=== PATIENT | female | born 1955 | race Caucasian/White ===

== ENCOUNTER → 2017-11-15 07:44 | Outpatient (CLI) | payer OTHER, SELFPAY ==
[2017-11-15 09:08] LABS: AST(SGOT) 20 U/L (15-37); Alanine Aminotransfer ALT/SGPT 21 U/L (13-56); Albumin, Serum 3.9 g/dL (3.2-5.0); Alkaline Phosphatase 112 U/L (45-117); Cholesterol 177 mg/dL (200); Globulin 3.3 g/dL (2.2-4.2); High Density Lipoprotein 54 mg/dL; Protein, Total 7.2 g/dL (6.4-8.2); Triglycerides 94 mg/dL; Very Low Density Lipoprotein 19 mg/dL (5-40)
== END ==
PROVIDERS: Family Provider Family Medicine; PCP Family Medicine; Visit Provider Internal Medicine Cardiovascular Disease
DX: E78.5 Hyperlipidemia, unspecified (principal); Z79.899 Other long term (current) drug therapy
CPT/HCPCS: 36415; 80061; 80076

== ENCOUNTER → 2018-05-18 10:44 | Outpatient (CLI) | payer OTHER, SELFPAY ==
[2018-05-18 12:15] LABS: AST(SGOT) 24 U/L (15-37); Alanine Aminotransfer ALT/SGPT 22 U/L (13-56); Albumin, Serum 3.7 g/dL (3.2-5.0); Alkaline Phosphatase 105 U/L (45-117); Cholesterol 189 mg/dL (200); Globulin 3.5 g/dL (2.2-4.2); High Density Lipoprotein 44 mg/dL; Protein, Total 7.2 g/dL (6.4-8.2); Triglycerides 153 mg/dL; Very Low Density Lipoprotein 31 mg/dL (5-40)
== END ==
PROVIDERS: Family Provider Family Medicine; PCP Family Medicine; Visit Provider Internal Medicine Cardiovascular Disease
DX: E78.5 Hyperlipidemia, unspecified (principal); Z79.899 Other long term (current) drug therapy
CPT/HCPCS: 36415; 80061; 80076

== ENCOUNTER → 2018-05-22 12:30 | Outpatient (CLI) | payer OTHER, SELFPAY ==
--- NOTE | 2018-05-22 12:32 | STE_ITS ---
Reason For Study: CHEST PAIN Stress Results Protocol: Cuco Protocol Maximum Predicted HR: 157 bpm Target HR: 133 bpm% Max imum Predicted HR: 103 % DurationHeart Rate Stage (mm:ss) (bpm) BPCom ment BASELINE 67 128/82 STAGE 1 3:00 11 8 172/90 STAGE 2 3:00 14 2 188/88CHEST HEAVINESS, INCREASED SOB STAGE 3 3:00 16 2 202/96SOB RECOVERY 81 130/88 Stress Duration: 9:00 mm:ss Maximum Stress HR: 162 bpm Baseline Echocardiogram Findings Stress Echo Wall motion Data Resting WMIntermediate WMStress WM Resting Wall Motion Wall Motion Stress No regional wall motion No regional wall motion abnormalities noted. abnormalities noted. Ejection Fraction 55 %. Ejection Fraction 65 %. Interpretation Summary Exercise stress echocardiogram. Stress protocol: Resting EKG demonstrates normal sinus rhythm with a rate of 66 bpm occasional premature ventricular complexes noted resting blood pressures 128/82 mmHg. The patient exercised according to the regular Cuco protocol for a total duration of 9 minutes. Patient completed stage III of the Cuco protocol. The maximum heart rate attained was 162 bpm which was 103% of maximum predicted heart rate and a maximum workload of 10.1 metabolic equivalents. The patient maintained sinus rhythm throughout the recording with occasional premature ventricular complexes and a short period of ventricular bigeminy which appeared to be mildly symptomatic. There were no ST or T-wave changes noted at rest or during peak exercise to suggest ischemia. Resting blood pressure was 128/82 with a peak blood pressure of 202/96 mmHg. Stress echocardiogram. The resting echocardiographic images demonstrated no wall motion abnormalities noted with an ejection fraction of 55%. At peak exercise the estimated ejection fraction was 65% with no wall motion abnormalities present. The test was terminated due to leg fatigue. No clinical angina was noted. Conclusion: Exercise stress echocardiogram with no evidence of ischemia at a high workload. Excellent functional capacity. Normal resting and stress echocardiographic images. Ordering Physician: Daniel Gill Referring Physician: Daniel Gill Performed By: Bridgett Streeter, RDCS, RVT
== END ==
PROVIDERS: Family Provider Family Medicine; PCP Family Medicine; Visit Provider Internal Medicine Cardiovascular Disease
DX: R07.9 Chest pain, unspecified (principal)
CPT/HCPCS: 93017; 93350

== ENCOUNTER → 2018-06-15 10:25 | Outpatient (CLI) | payer OTHER, SELFPAY ==
--- NOTE | 2018-06-15 10:46 | VDLE_ITS ---
Reason For Study: RLE Pain RIGHT LEFT GSV is normal. CFV is compressible, spontaneous, phasic, CFV is compressible, spontaneous, phasic, competent, and demonstrates normal competent and demonstrates normal augmentation. augmentation. FV is compressible, spontaneous, phasic, competent and demonstrates normal augmentation. POP V is compressible, spontaneous, phasic, competent and demonstrates normal augmentation. T/P Trunk is compressible. PTV is compressible. RT PerV is compressible. Procedure Exam performed in department. A preliminary report was called and/or faxed to Dr. Guzman. Interpretation Summary Deep veins of the right lower extremity are patent and compressible segmentally. There is no evidence of right lower extremity deep vein thrombosis. Valvular competence appears intact within the proximal deep venous system on the right . The right greater saphenous vein appears patent and compressible segmentally. Ordering Physician: Joe Guzman Referring Physician: Joe Guzman Performed By: Martina Sutton RVT and Student
== END ==
PROVIDERS: Family Provider Family Medicine; PCP Family Medicine; Referring Provider Family Medicine; Visit Provider Family Medicine
DX: M79.661 Pain in right lower leg (principal)
CPT/HCPCS: 93971

== ENCOUNTER 2018-06-27 08:55 | Outpatient (RCR) | payer OTHER, SELFPAY ==
--- NOTE | 2018-06-27 09:50 | HP.PTEVAL_ITS ---
Patient's Visit Information ZAIN LOVE is a 63 year old F referred to Physical Therapy by Joe Guzman with a diagnosis of Right Medial Calf Strain. Date of Evaluation: 06/27/18 Physical Therapist: Stacie Gu - Visit Plan Frequency: 3x /Week Duration: 2 Weeks Plan: Focus on stretching and US as modality with manual - Subjective Subjective: Right calf strain- was doing fall cleaning and then had pain- tho ught at first it was a blood clot- 2 weeks ago-had an ultrasound which was negative. Last week it started to push out- sent her to therapy to have it evaluation. Its getting better- she was on crutches but is now off of them. Describes pain as uncomfortable not painful 2/10 at the worst and just irritating. Pain is located along medial calf- and when she is on her leg to long it goes down the back. Can be pain free. Eases: ice and Ibuprofen. No N/T in the LE. Sleep: not disturbed at this point. When sitting for to long the leg kind of gates in the calf. 20 years ago had blood clots in the same area- thats why she was checked. Work: does not work outside of her home. Does not exercise outside of her housework. no x-rays or MRI- PMHx: HTN, cholesterol, Blood clots 20 years ago Meds: corig, lysinopril, certoline, prevastatin - Objective Posture: good throughout treatment session. Gait: angaltic- decrased stance on the right LE- poor heel strike and toe off due to decreased ROM and pain. SLS: unable without pain and when attempts her knee is bent to relieve pain. HR/TR: unable without pain and UE A. ROM: DF: neutral, PF: 60 degrees, Inv: 30 degrees Ever: 20 degrees- pain with Eversion and DF- Knee: 5-130 (normal secondary to partial knee replacement). Strength: hip: 4-/5 throughout, Knee: 5/5 Ankle: 4- /5 throughout available range. Flexibility: Gastroc: severe, Soleus: severe - Goals Goal 1:: Patient will be I with HEP and progression Goal Time Frame: 4-6 Weeks Goal 2:: Patient will ambulate >300 feet with a noramlized gait pattern Goal Time Frame: 4-6 Weeks Goal 3:: Patient will HR/TR with 0/10 pain Goal Time Frame: 4-6 Weeks Goal 4:: Patient will report 0/10 pain for 1 week Goal Time Frame: 4-6 Weeks - Rehabilitation Potential Physical Therapy Diagnosis: Patient presents with hypomobility she has decreased ROM, strength, flexibility and muscular endurance leading to abnormal gait pattern and increased pain with ADL's. Rehabilitation Potential: Fair - Anticipated Interventions Therapeutic Exercise to Include: Strength training, Endurance training, Balance training, Body mechanics, Postural training, Flexibilty training, Gait and locomotor training, Passive ROM, Active ROM For the Purpose of:: To improve muscle performance and motor function TENS: Yes Cryotherapy (ice pack, ice massage): Yes Thermo therapy (hot pack): Yes Ultrasound (thermal/non thermal): Yes Thank you for the opportunity to evaluate your patient. For Medicare and Medicare HMO plans, please review the plan of care and approve it. It will need to be FAXED BACK to us at [phone] for Medicare purposes. Please let me know if there are questions or concerns regarding this plan of care. Physician Signature: Date:
--- NOTE | 2018-08-14 15:29 | HP.PT.NRP ---
HP - Discharge Summary (1) - Patient Information ZAIN LOVE was seen in my office for initial evaluation on 06/27/18. The following Plan of Care was established for this patient: Initial Frequency: 3x /Week Initial Duration: 2 Weeks - Anticipated Interventions Therapeutic Exercise to Include: Strength training, Endurance training, Balance training, Body mechanics, Postural training, Flexibilty training, Gait and locomotor training, Passive ROM, Active ROM For the Purpose of:: To improve muscle performance and motor function TENS: Yes Cryotherapy (ice pack, ice massage): Yes Thermo therapy (hot pack): Yes Ultrasound (thermal/non thermal): Yes This patient was last seen in our office . Pertinent comments regarding their Physical therapy will appear below: Discharge At this point I will be discontinuing this patient from physical therapy. I would be happy to see this patient again in the future if found appropriate by the physician. Thank you! Stacie Gu
== END 2018-06-27 19:00 | disposition home or self-care (01) ==
LOC: PT 08:55
PROVIDERS: Family Provider Family Medicine; PCP Family Medicine; Visit Provider Family Medicine
DX: S86.111D Strain of other muscle(s) and tendon(s) of posterior muscle group at lower leg level, right leg, subsequent encounter (principal)
CPT/HCPCS: 97035; 97161

== ENCOUNTER → 2018-08-10 15:26 | Outpatient (CLI) | payer OTHER, SELFPAY ==
--- NOTE | 2018-08-10 15:29 | RAD_ITS ---
STUDY: X-RAY - LUMBAR SPINE REASON FOR EXAM: Female, 63 years old. Lumbago TECHNIQUE: 5 view(s) of the lumbar spine were obtained. COMPARISON: None FINDINGS: Normal lumbar lordosis. There is no substantial scoliosis. There is a normal alignment of the vertebrae. There is diffuse demineralization with multi-level endplate spondylosis. Normal disc space heights. There is facet sclerosis of the lower lumbar spine There is no demonstrated fracture. The soft tissue structures are unremarkable. RAD/L/S Spine Min 4 Views IMPRESSION: Degenerative changes of the spine, as detailed above. Electronically Signed: Abraham Leary MD at 15:39 EST , Service support ,
--- NOTE | 2018-08-10 15:29 | RAD_ITS ---
STUDY: X-RAY - PELVIS AND LEFT HIP REASON FOR EXAM: Female, 63 years old. Left hip pain TECHNIQUE: 3 views of the pelvis and hip. COMPARISON: None. FINDINGS: There is a normal bowel gas pattern. There are multiple calcified phleboliths. There is diffuse demineralization of the osseous structures. Normal bilateral iliac wings, sacroiliac joints and visualized sacrum. Normal bilateral superior and inferior pubic rami. Normal pubic symphysis. Normal bilateral ischial tuberosities. Normal visualized femoral head. Normal acetabulum. Normal hip joint. There is no fracture. RAD/HIP, UNI W/ Pelvis 2-3 Views IMPRESSION: Demineralization. No fracture or erosion. Electronically Signed: Abraham Leary MD at 15:37 EST , Service support ,
== END ==
PROVIDERS: Family Provider Family Medicine; PCP Family Medicine; Referring Provider Family Medicine; Visit Provider Family Medicine
DX: M54.5 Low back pain (principal); M25.552 Pain in left hip
CPT/HCPCS: 72110; 73502

== ENCOUNTER → 2018-08-22 08:27 | Outpatient (CLI) | payer OTHER, SELFPAY ==
--- NOTE | 2018-08-22 08:38 | BD_ITS ---
STUDY: DUAL ENERGY X-RAY ABSORPTIOMETRY / DXA REASON FOR EXAM: Female, 63 years old. The patient is postmenopausal. Loss of height. TECHNIQUE: Bone Mineral Density (BMD) measurements of lumbar spine and bilateral hips were obtained. COMPARISON: Comparison is made with prior study dated October 14, 2009. FINDINGS: Lumbar Spine (L1-L4): g/cm2 (0.997) / T-score (-1.5) / Z-score (-0.1) Findings are suggestive of osteopenia with a moderate fracture risk. Left Femur Total: g/cm2 (0.724) / T-score (-2.3) / Z-score (-1.2) Left Femoral Neck: g/cm2 (0.740) / T-score (-2.1) / Z-score (-0.8) Right Femur Total: g/cm2 (0.715) / T-score (-2.3) / Z-score (-1.2) Right Femoral Neck: g/cm2 (0.767) / T-score (-1.9) / Z-score (-0.6) The T-Scores on the most recent prior examination were: Lumbar Spine (L1-L4): There has been worsening of bone density since the previous examination. Left Femur Total: which represents a worsening of 13%. Right Femur Total: which represents a worsening of 13.2%. BD/Dexa Bone Density Study IMPRESSION: The patient is considered osteopenic as outlined below according to World Ramsey Organization (WHO) criteria with a moderate fracture risk. There has been worsening of bone density since the previous examination. Reference Information: The T-score is the number of standard deviations above or below the standard which is normal for young adults at their peak bone mineral density. The World Health Organization (WHO) interprets the T-scores as follows: Above -1 Normal bone density Between -1 and -2.5 Osteopenia Equal to / or below -2.5 Osteoporosis As a practical clinical guideline, osteopenia may be graded as follows: Mild -1 through -1.5 Moderate -1.6 through -2.0 Severe -2.1 through -2.4 The Z-score is the number of standard deviations above or below age-matched controls. A Z-score of less than -1.5 would be considered abnormal. References: 1. NIH Osteoporosis and Related Bone Diseases http://www.osteo.org 2. International Society for Clinical Densitometry http://www.iscd.org 3. National Osteoporosis Foundation http://www.nof.org Electronically Signed: Augustin Murray MD at 13:24 EST Tel [phone], Service support ,
--- OUTSIDE RECORDS SUMMARY | 2018-11-23 13:20 | XMS RPT_ITS ---
:1955 Author Organization OHIP Support Name Relationship Address Phone ARIES ALFONSO Unavailable [address] + [place] [address] R Unavailable Unavailable Unavailable REVA EASON Unavailable [address] + [place] [address] ALFONSO CHRIS Unavailable [address] + [place] [address] R Unavailable Unavailable Unavailable REVA EASON Unavailable [address] + [place] [address] ALFONSO CHRIS Unavailable [address] + [place] [address] R Unavailable Unavailable Unavailable REVA EASON Unavailable [address] + [place] [address] ALFONSO CHRIS Unavailable [address] + [place] [address] R Unavailable Unavailable Unavailable REVA EASON Unavailable [phone] [place] [address] ALFONSO CHRIS Unavailable [address] + [place] [address] R Unavailable Unavailable Unavailable REVA EASON Unavailable [phone] [place] [address] ALFONSO CHRIS Unavailable [address] + [place] [address] R Unavailable Unavailable Unavailable REVA EASON Unavailable [phone] [place] [address] ALFONSO CHRIS Unavailable [address] + [place] [address] R Unavailable Unavailable Unavailable IVAN REVA Unavailable [address] + [place] [address] R Unavailable Unavailable Unavailable IVAN REVA Unavailable [phone] [place] [address] R Unavailable Unavailable Unavailable IVAN REVA Unavailable [address] + [place] [address] R Unavailable Unavailable Unavailable IVAN REVA Unavailable [phone] [place] [address] Care Team Providers Name Role Phone Joe Guzman Attending Unavailable Ranney, Christopher Primary Care Unavailable Jairo, Daniel Attending Unavailable Jairo, Daniel Referring Unavailable [facility], [facility] Unavailable Jairo, Daniel Attending Unavailable Ranney, Christopher Referring Unavailable Ran[facility], [facility] Unavailable Jairo, Daniel Attending Unavailable J[place], [place] Referring Unavailable Ranney, Christopher Primary Care Unavailable [place], [place] Attending Unavailable [place], [place] Referring Unavailable [facility], [facility] Unavailable Ranney, Christopher Attending Unavailable Ranney, Christopher Referring Unavailable [facility], [facility] Primary [facility] Unavailable Jairo, Daniel Attending Unavailable Jairo, [place] Referring Unavailable Ranney, Christopher Attending Unavailable Ran[facility], [facility] Primary Care Unavailable Ranney, Christopher Attending Unavailable Ranney, Christopher Referring Unavailable Ranney, [facility] Primary Care Unavailable Ranney, Christopher Attending Unavailable Ranney, Christopher Referring Unavailable Ran[facility], [facility] Primary [facility] Unavailable PROBLEMS PROBLEMS DATE TYPE CONDITION / CODE ATTENDING STATUS SOURCE 08/10/2018 Unknown M25.552 - Pain in Ranney, Active [place] left hip / [facility] M25.552(ICD-10) Hospital Repository 08/10/2018 Unknown M54.5 - Low back Ranney, Active [place] pain / [facility] Community M54.5(ICD-10) Hospital Repository 06/16/2018 Unknown R07.9 - Chest Jairo, Daniel Active [place] pain, unspecified Community / R07.9(ICD-10) Hospital Repository 05/16/2018 Unknown E78.5 - Jairo, Daniel Active [place] Hyperlipidemia, Community unspecified / Hospital E78.5(ICD-10) Repository 05/16/2018 Unknown I10 - Essential [place]airo, [place] Active [place] (primary) Community hypertension / Hospital I10(ICD-10) Repository 11/15/2017 Unknown 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 [place], [place] [address] Fax REHABILITATION SERVICES INITIAL EVALUATION MR#: [id number] Acct: [id number] Name: ZAIN EASON Rep #: [id number] : 1955 63 From: Lala El PT, Cert. MDT Referring Dr.: Joe Guzman MD Status: REG RCR Insurance: [facility] SELF PAY INSURANCE Patient's Visit Information ZAIN [...] BACK X-RAY AND BONE SCAN PENDING TUESDAY. [facility] EMR: FINDINGS: Normal lumbar lordosis. There [...] to be FAXED BACK to us at [phone] for Medicare purposes. For Medicare only, by signing this I certify the plan of care. Please let me know if there are questions or concerns regarding this plan of care. Physician Signature: Date: <Electronically signed by Lala El PT, Cert. MDT> 08/24/18 0914 CC: Joe Guzman MD CECILIA Signed DEXA BONE DENSITY Observed: 08/22/2018 Status: F Source: [place] STUDY 8:31 AM [facility] [place] Imaging Services [address] [place] [address] Dexa Bone Density Study MR#: [id number] Acct: [id number] Name: ZAIN EASON Rep #: [id number] : 1955 F 63 From: Augustin Murray MD PCP: Joe Guzman MD Status: REG CLI Study: Dexa Bone Density Study Date of Exam: 08/22/18 Exam# [id number] Ordering Dr: Reginald Guzman MD STUDY: DUAL [...] Augustin Murray MD at 13:24 EST Tel [phone], Service support , CC: Joe Guzman MD Emergency Response Officer: Signed HIP, UNI W/ PELVIS Observed: 08/10/2018 Status: F Source: [place] 2-3 VIEWS 3:30 PM [facility] REPOSITORY [facility] Imaging Services [address] [place] [address] HIP, UNI W/ Pelvis 2-3 Views MR#: [id number] Acct: [id number] Name: ZAIN EASON Rep #: [id number] : 1955 F 63 From: Abraham Leary MD PCP: Joe Guzman MD Status: REG CLI Study: HIP, UNI W/ Pelvis 2-3 Views Date of Exam: 08/10/18 Exam# [id number] Ordering Dr: Reginald Guzman MD STUDY: X-RAY [...] Service support , CC: Joe Guzman MD Emergency Response Officer: Signed L/S SPINE MIN 4 Observed: 08/10/2018 Status: F Source: [place] VIEWS 3:30 PM [facility] REPOSITORY [facility] Imaging Services [address] [place] [address] L/S Spine Min 4 Views MR#: [id number] Acct: [id number] Name: ZAIN EASON Rep #: [id number] : 1955 F 63 From: Abraham Leary MD PCP: Joe Guzman MD Status: REG CLI Study: L/S Spine Min 4 Views Date of Exam: 08/10/18 Exam# [id number] Ordering Dr: Reginald Guzman MD STUDY: X-RAY [...] Service support , CC: Joe Guzman MD Emergency Response Officer: Signed INITAL EVALUATION (1) Observed: 06/27/2018 Status: F Source: [facility] 9:50 AM [facility] [address] [place] [address]. [address] [place] [address] Fax REHABILITATION SERVICES INITIAL EVALUATION MR#: [id number] Acct: [id number] Name: ZAIN EASON Rep #: [id number] : 1955 63 From: Stacie Gu DPT Referring Dr.: Joe Guzman MD Status: REG RCR Insurance: [facility]F PAY INSURANCE Patient's Visit Information ZAIN [...] to be FAXED BACK to us at [phone] for Medicare purposes. Please let me know if there are questions or concerns regarding this plan of care. Physician Signature: Date: <Electronically signed by Stacie Gu DPT> 06/27/18 0950 CC: Joe Guzman MD ELR Signed For Medicare only, by signing this I certify the plan of care. Physicians Signature Date VENOUS DUPLEX LOWER Observed: 06/18/2018 Status: F Source: [place] EXTREMITY 9:32 AM [facility] [place] Cardiovascular Services [address] [place] [address] Venous Duplex US, Unilateral 06/15/18 1047 MR#: [id number] Acct: [id number] Name: ZAIN EASON Rep #: [id number] : 1955 63 From: Mervin Wolf MD [...] Dictated: 06/15/18 1047 Date Transcribed: 06/18/18 0932 Emergency Response Officer: Signed STRESS TEST ECHO W/O Observed: 05/22/2018 Status: F Source: [place] CONTRAST [facility] Cardiovascular Services [address] [place] [address] Stress Test Echo w/o Contrast MR#: [id number] Acct: [id number] Name: ZAIN EASON Rep #: [id number] : 1955 63 From: Daniel Gill MD [...] Dictated: 05/22/18 1258 Date Transcribed: 05/22/18 1601 Emergency Response Officer: Signed LIVER PROFILE Collected: 05/18/2018 Status: F Source: [place] 10:51 AM [facility] [place] TYPE CODE TESTS RESULT [...] 0.10 Performed By: #### L500.3400, L500.4100 #### [facility] [address] [place], [address] LIPID PROFILE Collected: 05/18/2018 Status: F Source: [place] 10:51 AM [facility] [place] [facility] TYPE CODE TESTS RESULT [...] 31 Performed By: #### L500.3400, L500.4100 #### [facility] [address] [place], [address] CARDIOLOGY VISIT Observed: 05/16/2018 Status: F Source: [place] REPORT 9:51 AM [facility] [place] [address] [place] [address] OFFICE VISIT Date of Service: 05/16/18 MR#: [id number] Acct: [id number] Name: ZAIN EASON Rep #: [id number] : 1955 Provider: Daniel Gill MD Age/Sex: 63/F Location: [facility] Status: Signed HPI [facility] Chief Complaint: Follow-up visit. 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 [Ecotrin] 81 mg PO MOWEFR 08/23/13 [History Confirmed 05/16/18] Calcium Carbonate/Vitamin D3 [Calcium 600-Vit D3 400 Tablet] 1 ea PO DAILY 08/23/13 [History Confirmed 05/16/18] [place]-3 Fatty Acids/Fish Oil [Fish Oil Softgel] 1 [...] arise Plan Detail Follow Up 1 Year (rhit) Coding Level of Care Code Off vis,est,level [...] 11/15/2017 Status: F Source: [place] 7:46 AM [facility] Order Comment: Order Date: 05/20/17 Order Info: 0788-1 - *Hepatic Function Panel Order Info: [id number] - *Lipid Profile CC PCP Comments: 12 [...] BILI 0.10 Performed By: #### L500.3400 #### [facility] [address] [place], [place], [id number] LIPID PROFILE Collected: 11/15/2017 Status: F Source: [place] 7:46 AM [facility] Order Comment: Order Date: 05/20/17 Order Info: 0788-1 - *Hepatic Function Panel Order Info: [id number] - *Lipid Profile CC PCP Comments: 12 [...] VLDL 19 Performed By: #### L500.4100 #### [facility] [address] [place], [place] [address], [address] ALLERGIES ALLERGIES DATE TYPE / NAME / CODE REACTION SEVERITY SOURCE CODE 05/16/2018 Drug metoclopramide Other Unknown [place] Allergy/41 HCl/[id number](RXNOR [facility] [id number] Repository ENCOUNTERS ENCOUNTERS ADMIT/DISCHARGE ACCOUNT ADMITTING ENCOUNTER LOCATION SOURCE NUMBER CLASS 09/04/2018 [id number] Ambulatory [address] ing:PT Repository 08/22/2018 [id number] Ambulatory [facility] 2 [facility] ing:OPBD Repository 08/10/2018 [id number] Ambulatory [place] 4 [facility] ing:MTRAD Repository 06/27/2018/ [id number] Ambulatory [place] ing:PT Repository 06/15/2018 [id number] Ambulatory [facility] 8 [facility] ing:CVS Repository 05/22/2018 [id number] Ambulatory [address] ing:CVS Repository 05/22/2018 [id number] Ambulatory BMSBuilding:W [place] 7 [facility] Repository 05/18/2018 [id number] Ambulatory [place] 5 [facility] ing:LAB Repository 05/16/2018/ [id number] Ambulatory BMSBuilding:B [place] 8 9 [facility] Repository 11/15/2017 [id number] Ambulatory [place] 9 [facility] ing:LAB Repository PAYERS PAYERS ENCOUNTER GUARANTOR PAYER SUBSCRIBER SOURCE 09/04/2018 DANY Velarde Primary ZAIN COTTONENT1623 Insurance:MEDICAL VINCENTDOB: [facility] [place] Number[place] Repository [id number]: 330 [id number] [phone] (HP) Date:5921-50-20IS [address] [place] [address]ZL: 09/04/2018 Secondary NOT GIVENUNK [place] Insurance:SELF PAY [facility] Number: Effective Repository Date:2018-08-14 08/22/2018 DNAY D Primary ZAIN COTTONENT1623 Insurance:MEDICAL VINCENTDOB: [facility] [place]43[place] Number: Repository [id number]: 330 [id number] [phone] (HP) Date:7822-53-29YV [address] [address]UW: 08/22/2018 Secondary NOT GIVENUNK [place] Insurance:SELF PAY [facility] Number: Effective Repository Date:2018-08-14 08/10/2018 DANY Velarde Primary ZAIN [place] [id number] Insurance:MEDICAL VINCENTDOB: [facility] 0577[place] Number: Repository [address]Ipk: 330 [id number] [phone] (HP) Date:5969-77-56QS [address] [address]RK: 08/10/2018 Secondary NOT GIVENUNK [place] Insurance:SELF PAY [facility] Number: Effective Repository Date:2018-08-10 06/27/2018 DANY COTTONENT1623 Insurance:MEDICAL VINCENTDOB: [facility] 5154[place] Number: Repository [address]Aon: 330 [id number] [phone] (HP) Date:6838-44-51SC [address] [address]TD: 06/27/2018 Secondary NOT GIVENUNK [place] Insurance:SELF PAY [facility] Number: Effective Repository Date:2018-06-26 06/15/2018 DANY COTTONENT1623 Insurance:MEDICAL VINCENTDOB: [facility] [id number] Number: Repository [address]Tnw: 330 [id number] [phone] (HP) Date:5873-79-22ML [address] [address]CJ: 06/15/2018 Secondary NOT GIVENUNK [place] Insurance:SELF PAY [facility] Number: Effective Repository Date:2018-06-15 05/22/2018 DANY COTTONENT1623 Insurance:MEDICAL VINCENTDOB: [facility] 4737-80-[place] Number: Repository [id number]: 330 [id number] [phone] (HP) Date:0885-56-83SH [address] [address]UC: 05/22/2018 Secondary NOT GIVENUNK [place] Insurance:SELF PAY [facility] Number: Effective Repository Date:2018-05-16 05/22/2018 DANY COTTONENT1623 Insurance:MEDICAL VINCENTDOB: [address]08-16[place] Number: Repository [address]Elu: 330 [id number] [phone] (HP) Date:1160-86-44XH [address] [place] [address]TC: 05/22/2018 Secondary NOT GIVENUNK [place] Insurance:SELF PAY [facility] Number: Effective Repository Date:2018-05-22 05/18/2018 Dany Eason1623 Insurance:MEDICAL VINCENTDOB: [facility] 3533[place]-88[place] Number: Repository [id number]: 330 [id number] [phone] (HP) Date:6144-65-34HG [address] [address]MS: 05/18/2018 Secondary NOT GIVENUNK [place] Insurance:SELF PAY [facility] Number: Effective Repository Date:2018-05-18 05/16/2018 Dany Cottonent1623 Insurance:MEDICAL VINCENTDOB: [facility] [id number] Number: Repository [id number]: 330 [id number] [phone] (HP) Date:4438-87-83TB [address] [address]RZ: 05/16/2018 Secondary NOT GIVENUNK [place] Insurance:SELF PAY [facility] Number: Effective Repository Date:2018-05-16 11/15/2017 Dany Cottonent1623 Insurance:MEDICAL VINCENTDOB: [facility] 2816[place]13-[place] Number: Repository [id number]: 330 [id number] [phone] (HP) Date:0722-76-25AO [address] [address]BT: 11/15/2017 Secondary NOT GIVENUNK [place] Insurance:SELF PAY [facility] Number: Effective Repository Date:2017-11-15
== END ==
PROVIDERS: Family Provider Family Medicine; PCP Family Medicine; Visit Provider Family Medicine
DX: M51.36 Other intervertebral disc degeneration, lumbar region (principal)
CPT/HCPCS: 77080

== ENCOUNTER 2018-09-04 15:00 | Outpatient (RCR) | payer OTHER, SELFPAY ==
--- NOTE | 2018-08-17 13:19 | HP.PTEVAL ---
Patient's Visit Information ZAIN LOVE is a 63 year old F referred to Physical Therapy by Reginald Guzman MD with a diagnosis of DDD LUMBAR. Date of Evaluation: 08/17/18 Physical Therapist: Lala Gore Visit Plan Frequency: 2-3x /Week Duration: 4-6 Weeks Plan: POSTURE CORRECTION/STRENGTHENING, INSTRUCTION IN APPROPRIATE BODY MECHANICS AND ACTIVITY MODIFICATIONS. DLS STARTING WITH A NEUTRAL SPINE PROGRESSING ROM TOLERATED. ELSA LE ROM, STRETCHING AND STRENGTHENING. HEP INSTRUCTION. 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 Disability: NO. Present symptoms: ELSA LOW BACK PAIN AND LEFT GROIN PAIN. RIGHT THORACIC PAIN. TINGLING 4TH TOE FOR A FEW MONTHS NOW. ALSO PAIN, NUMBNESS AND TINGLING DOWN THE BACK OF BOTH LEGS TO HER FEET. Present since: COUPLE OF YEARS AGO AT LEAST BUT LEFT GROIN PAIN STARTED WITHIN THE LAST MONTH. Pain Scale: BACK - WORST 4/10, LEAST 0/10, LEGS - WORST 7/10, LEAST 0/10, LEFT GROIN PAIN - WORST 8/10, LEAST 0/10. Currently: 0/10 SITTING IN CLINIC AND WALKING IN TODAY. Commenced as a result of: NO APPARENT REASON. Symptoms at onset: LOW BACK. Worse: CLEANING, LEANING FORWARD TO DUST, VACUUMING, GETTING OUT OF A CHAIR THE LEFT GROIN REALLY HURTS AND SITTING DOWN IRRITATES IT TOO. SITTING IN CERTAIN CHAIRS. GETTING OUT OF BED. Better: SITTING IN STRAIGHT CHAIRS, BASICALLY DOING NOTHING - BEING STILL IN SITTING OR LYING DOWN. ALEVE. Disturbed sleep: NO. Previous history/Previous treatment: PATIENT REPORTS A LONG HISTORY OF BACK AND SCIATICA TYPE SYMPTOMS IN BOTH LEGS BUT THE ONLY TREATMENT SHE HAS HAD WERE A FEW DO MANIPULATIONS. NO BACK SURGERY. NO BASILIO'S. NO PT AND NO CHIROPRACTOR. Coughing/sneezing/straining: POSITIVE. Gait: NORMAL BUT SOMETIMES WALKING INCREASES THE GROIN PAIN BUT SHE IS ABLE TO KEEP GOING. Difficulty initiating urinatin: NO. Accidents: NONE RECENT. Unexplained weight loss: NO. Imaging: RECENT LUMBAR X-RAYS - HIPS WERE FINE PER PATIENT REPORT. PATIENT REPORTS THE NURSE TOLD HER THEY SAW SOMETHING ON THE LOW BACK X-RAY AND BONE SCAN PENDING TUESDAY. [facility] EMR: FINDINGS: Normal lumbar lordosis. There is no substantial scoliosis. There is a normal alignment of the vertebrae. There is diffuse demineralization with multi-level endplate spondylosis. Normal disc space heights. There is facet sclerosis of the lower lumbar. spine There is no demonstrated fracture. The soft tissue structures are unremarkable. PMH: OSTEOPENIA. HTN. HIGH CHOLESTEROL. Recent major surgery: RIGHT PARTIAL KNEE REPLACEMENT 3 YEARS AGO. PLOF (Prior Level of Function): PRIOR TO ONSET OF THE LEFT GROIN PAIN ABOUT 3-4 WEEKS AGO PATIENT WAS ABLE TO GET UP AND DOWN FROM CHAIRS, IN/OUT OF BED, CLEAN, BEND AND LIFT WITHOUT PAIN. SHE ALSO REPORTS SHE WAS ABLE TO WALK UNLIMITED WITHOUT PAIN PRIOR TO THE LEFT GROIN PAIN. - Objective Sitting/Standing Posture: POOR. Lordosis: REDUCED. Lateral shift: NO. Relevant shift: N/A. Active Correction of posture: BETTER. PATIENT REPORTED IMMEDIATE DECREASE IN PAIN WITH USE OF LUMBAR SUPPORT IN CLINIC. Other Observations: INDEP GAIT INTO PT WITHOUT ANY AD'S OR GROSS DEVIATIONS NOTED. Motor deficit: ELSA LE'S 5/5 WITH MMT'IING EXCEPT RIGHT HIP 4/5 AND LEFT HIP 4-/5. LEFT HIP TESTING PROVOKES LEFT GROIN PAIN. ACTIVE LEFT HIP IR ESPECIALLY PROVOKES LEFT GROIN PAIN. Sensory deficit: NO. ROM deficit: RIGHT LE WNL AND PAINFREE WITH TESTING EXCEPT ERP WITH IR. LEFT HIP FLEX AND IR HAVE MINIMAL MVMT LOSS AND ERP WITH TESTING. Reflexes: 3/3 ELSA LE'S. Dural Signs: NEGATIVE RIGHT AND POSITIVE LEFT. Lumbar mvmt loss: flex - NIL. ext - MOD. R SG - MIN. L SG - MOD. PATIENT DENIES ANY SHOOTING PAINS OR REALLY ANY INCRASED PAIN WITH LUMBAR ROM TESTING ALL PLANES HOWEVER STANDING STILL FOR JUST A FEW MINUTES INCREASES LEFT GROIN PAIN. Core strength: POOR. Palpation: PATIENT HAS TENDERNESS WITH PALPATION OF THE LEFT GROIN REGION, LEFT GRATER TROCH REGION AND [id number] REGIONS WITH PALPATION OF THE SACRUM PRODUCING LEFT GROIN PAIN. OTHER: POSITIVE LEFT GALLO TEST. NEGATIVE RIGHT. - Goals Goal 1:: DECREASE C/O BACK AND ELSA LE SX'S INCLUDING LEFT GROIN Goal Time Frame: 4-6 Weeks Goal 2:: IMPROVE LIFTING, WALKING, SITTING, STANDING AND HOMEMAKING FUNCTION Goal Time Frame: 4-6 Weeks Goal 3:: INSTRUCT IN PROPHYLAXIS Goal Time Frame: 4-6 Weeks - Rehabilitation Potential Rehabilitation Potential: Good - Anticipated Interventions Patient/Client Instruction: Educate patient on: Condition, Plan of Care, Risk Factors, Benefits of Fitness Program For the Purpose of:: To improve self management Therapeutic Exercise to Include: Strength training, Body mechanics, Postural training, Flexibilty training, Dynamic Lumbar Stabilization For the Purpose of:: To decrease pain, To increase ROM, To improve muscle performance and motor function, To increase tolerance to activity/condition/position, To improve ability of physical actions for home/community/work/leisure TENS: Yes IF ES: Yes Cryotherapy (ice pack, ice massage): Yes Thermo therapy (hot pack): Yes Ultrasound (thermal/non thermal): Yes For the Purpose of:: To decrease pain, To decrease swelling/inflammation, To increase ROM, To improve nutrient delivery to tissue Thank you for the opportunity to evaluate your patient. For Medicare and Medicare HMO plans, please review the plan of care and approve it. It will need to be FAXED BACK to us at [phone] for Medicare purposes. For Medicare only, by signing this I certify the plan of care. Please let me know if there are questions or concerns regarding this plan of care. Physician Signature: Date:
--- OUTSIDE RECORDS SUMMARY | 2018-10-03 06:06 | XMS RPT_ITS ---
:1955 Author Organization OHIP Support Name Relationship Address Phone ARIES ALFONSO Unavailable [address] + [place] [address] R Unavailable Unavailable Unavailable REVA EASON Unavailable [address] + [place] [address] ALFONSO CHRIS Unavailable [address] + [place] [address] R Unavailable Unavailable Unavailable REVA EASON Unavailable [address] + [place] [address] ALFONSO CHRIS Unavailable [address] + [place] [address] R Unavailable Unavailable Unavailable REVA EASON Unavailable [address] + [place] [address] ALFONSO CHRIS Unavailable [address] + [place] [address] R Unavailable Unavailable Unavailable REVA EASON Unavailable [phone] [place] [address] ALFONSO CHRIS Unavailable [address] + [place] [address] R Unavailable Unavailable Unavailable REVA EASON Unavailable [phone] [place] [address] ALFONSO CHRIS Unavailable [address] + [place] [address] R Unavailable Unavailable Unavailable REVA EASON Unavailable [phone] [place] [address] ALFONSO CHRIS Unavailable [address] + [place] [address] R Unavailable Unavailable Unavailable IVAN REVA Unavailable [address] + [place] [address] R Unavailable Unavailable Unavailable IVAN REVA Unavailable [phone] [place] [address] R Unavailable Unavailable Unavailable IVAN REVA Unavailable [address] + [place] [address] R Unavailable Unavailable Unavailable IVAN REVA Unavailable [phone] [place] [address] Care Team Providers Name Role Phone Joe Guzman Attending Unavailable Ranney, Christopher Primary Care Unavailable Jairo, Daniel Attending Unavailable Jairo, Daniel Referring [facility]available [facility], [facility] Unavailable Jairo, Daniel Attending Unavailable Ranney, Christopher Referring Unavailable [facility], [facility] Unavailable Jairo, Daniel Attending Unavailable Jairo, Como Referring Unavailable Ranney, Christopher Primary Care Unavailable Jairo, Como Attending Unavailable Jairo, [place] Referring Unavailable [facility], [facility] Unavailable Ranney, Christopher Attending Unavailable Ranney, Christopher Referring Unavailable [facility], [facility] Unavailable Jairo, Daniel Attending Unavailable Jairo, [place] Referring Unavailable Ranney, Christopher Attending Unavailable [facility], [facility] Unavailable Ranney, Christopher Attending Unavailable Ranney, Christopher Referring Unavailable Ranney, [facility] Primary [facility] Unavailable Ranney, Christopher Attending Unavailable Ranney, Christopher Referring Unavailable [facility], [facility] Unavailable PROBLEMS PROBLEMS DATE TYPE CONDITION / CODE ATTENDING STATUS SOURCE 08/10/2018 Unknown M25.552 - Pain in Ranney, Active [place] left hip / [facility] M25.552(ICD-10) Hospital Repository 08/10/2018 Unknown M54.5 - Low back Ranney, Active [place] [facility] / Christopher Community M54.5(ICD-10) Hospital Repository 06/16/2018 Unknown R07.9 - Chest Jairo, Daniel Active [place] [facility], unspecified Community / R07.9(ICD-10) Hospital Repository 05/16/2018 Unknown E78.5 - Jairo, Daniel Active [place] Hyperlipidemia, Community unspecified / Hospital E78.5(ICD-10) Repository 05/16/2018 Unknown I10 - Essential Jairo, [place] Active [place] (primary) Community hypertension / Hospital I10(ICD-10) Repository 11/15/2017 Unknown 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 [place], [place] [address] Fax REHABILITATION SERVICES INITIAL EVALUATION MR#: [id number] Acct: [id number] Name: ZAIN EASON Rep #: [id number] : 1955 63 From: Lala El PT, Cert. MDT Referring Dr.: Joe Guzman MD Status: REG RCR Insurance: [facility] [employer]URANCE Patient's Visit Information ZAIN EASON is a 63 year old F referred to Physical Therapy by Reginald Guzman MD with a diagnosis of DDD LUMBAR. Date of Evaluation: 08/17/18 Physical Therapist: Lala El - Visit Plan Frequency: 2-3x /Week Duration: 4-6 Weeks Plan: POSTURE CORRECTION/STRENGTHENING, INSTRUCTION IN APPROPRIATE BODY MECHANICS AND ACTIVITY MODIFICATIONS. DLS STARTING WITH A NEUTRAL SPINE PROGRESSING ROM TOLERATED. ELSA LE ROM, STRETCHING AND STRENGTHENING. HEP INSTRUCTION. 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 Disability: NO. Present symptoms: ELSA LOW BACK PAIN AND LEFT GROIN PAIN. RIGHT THORACIC PAIN. TINGLING 4TH TOE FOR A FEW MONTHS NOW. ALSO PAIN, NUMBNESS AND TINGLING DOWN THE BACK OF BOTH LEGS TO HER FEET. Present since: COUPLE OF YEARS AGO AT LEAST BUT LEFT GROIN PAIN STARTED WITHIN THE LAST MONTH. Pain Scale: BACK - WORST 4/10, LEAST 0/10, LEGS - WORST 7/10, LEAST 0/10, LEFT GROIN PAIN - WORST 8/10, LEAST 0/10. Currently: 0/10 SITTING IN CLINIC AND WALKING IN TODAY. Commenced as a result of: NO APPARENT REASON. Symptoms at onset: LOW BACK. Worse: CLEANING, LEANING FORWARD TO DUST, VACUUMING, GETTING OUT OF A CHAIR THE LEFT GROIN REALLY HURTS AND SITTING DOWN IRRITATES IT TOO. SITTING IN CERTAIN CHAIRS. GETTING OUT OF BED. Better: SITTING IN STRAIGHT CHAIRS, BASICALLY DOING NOTHING - BEING STILL IN SITTING OR LYING DOWN. ALEVE. Disturbed sleep: NO. Previous history/Previous treatment: PATIENT REPORTS A LONG HISTORY OF BACK AND SCIATICA TYPE SYMPTOMS IN BOTH LEGS BUT THE ONLY TREATMENT SHE HAS HAD WERE A FEW DO MANIPULATIONS. NO BACK SURGERY. NO BASILIO'S. NO PT AND NO CHIROPRACTOR. Coughing/sneezing/straining: POSITIVE. Gait: NORMAL BUT SOMETIMES WALKING INCREASES THE GROIN PAIN BUT SHE IS ABLE TO KEEP GOING. Difficulty initiating urinatin: NO. Accidents: NONE RECENT. Unexplained weight loss: NO. Imaging: RECENT LUMBAR X-RAYS - HIPS WERE FINE PER PATIENT REPORT. PATIENT REPORTS THE NURSE TOLD HER THEY SAW SOMETHING ON THE LOW BACK X-RAY AND BONE SCAN PENDING TUESDAY. [facility] EMR: FINDINGS: Normal lumbar lordosis. There is no substantial scoliosis. There is a normal alignment of the vertebrae. There is diffuse demineralization with multi-level endplate spondylosis. Normal disc space heights. There is facet sclerosis of the lower lumbar. spine There is no demonstrated fracture. The soft tissue structures are unremarkable. PMH: OSTEOPENIA. HTN. HIGH CHOLESTEROL. Recent major surgery: RIGHT PARTIAL KNEE REPLACEMENT 3 YEARS AGO. PLOF (Prior Level of Function): PRIOR TO ONSET OF THE LEFT GROIN PAIN ABOUT 3-4 WEEKS AGO PATIENT WAS ABLE TO GET UP AND DOWN FROM CHAIRS, IN/OUT OF BED, CLEAN, BEND AND LIFT WITHOUT PAIN. SHE ALSO REPORTS SHE WAS ABLE TO WALK UNLIMITED WITHOUT PAIN PRIOR TO THE LEFT GROIN PAIN. - Objective Sitting/Standing Posture: POOR. Lordosis: REDUCED. Lateral shift: NO. Relevant shift: N/A. Active Correction of posture: BETTER. PATIENT REPORTED IMMEDIATE DECREASE IN PAIN WITH USE OF LUMBAR SUPPORT IN CLINIC. Other Observations: INDEP GAIT INTO PT WITHOUT ANY AD'S OR GROSS DEVIATIONS NOTED. Motor deficit: ELSA LE'S 5/5 WITH MMT'IING EXCEPT RIGHT HIP 4/5 AND LEFT HIP 4-/5. LEFT HIP TESTING PROVOKES LEFT GROIN PAIN. ACTIVE LEFT HIP IR ESPECIALLY PROVOKES LEFT GROIN PAIN. Sensory deficit: NO. ROM deficit: RIGHT LE WNL AND PAINFREE WITH TESTING EXCEPT ERP WITH IR. LEFT HIP FLEX AND IR HAVE MINIMAL MVMT LOSS AND ERP WITH TESTING. Reflexes: 3/3 ELSA LE'S. Dural Signs: NEGATIVE RIGHT AND POSITIVE LEFT. Lumbar mvmt loss: flex - NIL. ext - MOD. R SG - MIN. L SG - MOD. PATIENT DENIES ANY SHOOTING PAINS OR REALLY ANY INCRASED PAIN WITH LUMBAR ROM TESTING ALL PLANES HOWEVER STANDING STILL FOR JUST A FEW MINUTES INCREASES LEFT GROIN PAIN. Core strength: POOR. Palpation: PATIENT HAS TENDERNESS WITH PALPATION OF THE LEFT GROIN REGION, LEFT GRATER TROCH REGION AND L45S1 REGIONS WITH PALPATION OF THE SACRUM PRODUCING LEFT GROIN PAIN. OTHER: POSITIVE LEFT GALLO TEST. NEGATIVE RIGHT. - Goals Goal 1:: DECREASE C/O BACK AND ELSA LE SX'S INCLUDING LEFT GROIN Goal Time Frame: 4-6 Weeks Goal 2:: IMPROVE LIFTING, WALKING, SITTING, STANDING AND HOMEMAKING FUNCTION Goal Time Frame: 4-6 Weeks Goal 3:: INSTRUCT IN PROPHYLAXIS Goal Time Frame: 4-6 Weeks - Rehabilitation Potential Rehabilitation Potential: Good - Anticipated Interventions Patient/Client Instruction: Educate patient on: Condition, Plan of Care, Risk Factors, Benefits of Fitness Program For the Purpose of:: To improve self management Therapeutic Exercise to Include: Strength training, Body mechanics, Postural training, Flexibilty training, Dynamic Lumbar Stabilization For the Purpose of:: To decrease pain, To increase ROM, To improve muscle performance and motor function, To increase tolerance to activity/condition/position, To improve ability of physical actions for home/community/work/leisure TENS: Yes IF ES: Yes Cryotherapy (ice pack, ice massage): Yes Thermo therapy (hot pack): Yes Ultrasound (thermal/non thermal): Yes For the Purpose of:: To decrease pain, To decrease swelling/inflammation, To increase ROM, To improve nutrient delivery to tissue Thank you for the opportunity to evaluate your patient. For Medicare and Medicare HMO plans, please review the plan of care and approve it. It will need to be FAXED BACK to us at [phone] for Medicare purposes. For Medicare only, by signing this I certify the plan of care. Please let me know if there are questions or concerns regarding this plan of care. Physician Signature: Date: <Electronically signed by Lala El PT, Cert. MDT> 08/24/18 0914 CC: Joe Guzman MD CECILIA Signed DEXA BONE DENSITY Observed: 08/22/2018 Status: F Source: [place] STUDY 8:31 AM [facility] [place] Imaging Services [address] [place] [address] Dexa Bone Density Study MR#: [id number] Acct: [id number] Name: ZAIN EASON Rep #: [id number] : 1955 F 63 From: Augustin Murray MD PCP: Joe Guzman MD Status: REG CLI Study: Dexa Bone Density Study Date of Exam: 08/22/18 Exam# [id number] Ordering Dr: Reginald Guzman MD STUDY: DUAL ENERGY X-RAY ABSORPTIOMETRY / DXA REASON FOR EXAM: Female, 63 years old. The patient is postmenopausal. Loss of height. TECHNIQUE: Bone Mineral Density (BMD) measurements of lumbar spine and bilateral hips were obtained. COMPARISON: Comparison is made with prior study dated October 14, 2009. FINDINGS: Lumbar Spine (L1-L4): g/cm2 (0.997) / T-score (-1.5) / Z-score (-0.1) Findings are suggestive of osteopenia with a moderate fracture risk. Left Femur Total: g/cm2 (0.724) / T-score (-2.3) / Z- score (-1.2) Left Femoral Neck: g/cm2 (0.740) / T-score (-2.1) / Z- score (-0.8) Right Femur Total: g/cm2 (0.715) / T-score (-2.3) / Z- score (-1.2) Right Femoral Neck: g/cm2 (0.767) / T-score (-1.9) / Z-score (-0.6) The T-Scores on the most recent prior examination were: Lumbar Spine (L1-L4): There has been worsening of bone density since the previous examination. Left Femur Total: which represents a worsening of 13%. Right Femur Total: which represents a worsening of 13.2%. BD/Dexa Bone Density Study IMPRESSION: The patient is considered osteopenic as outlined below according to World Ramsey Organization (WHO) criteria with a moderate fracture risk. There has been worsening of bone density since the previous examination. Reference Information: The T-score is the number of standard deviations above or below the standard which is normal for young adults at their peak bone mineral density. The World Health Organization (WHO) interprets the T-scores as follows: Above -1 Normal bone density Between -1 and -2.5 Osteopenia Equal to / or below -2.5 Osteoporosis As a practical clinical guideline, osteopenia may be graded as follows: Mild -1 through -1.5 Moderate -1.6 through -2.0 Severe -2.1 through -2.4 The Z-score is the number of standard deviations above or below age-matched controls. A Z-score of less than -1.5 would be considered abnormal. References: 1. NIH Osteoporosis and Related Bone Diseases http://www.osteo.org 2. International Society for Clinical Densitometry http://www.iscd.org 3. National Osteoporosis Foundation http://www.nof.org Electronically Signed: Augustin Murray MD at 13:24 EST Tel [phone], Service support , CC: Joe Guzman MD Optics Test Technician: Signed HIP, UNI W/ PELVIS Observed: 08/10/2018 Status: F Source: [place] 2-3 VIEWS 3:30 PM [facility] REPOSITORY [facility] Imaging Services [address] [place] [address] HIP, UNI W/ Pelvis 2-3 Views MR#: [id number] Acct: [id number] Name: ZAIN EASON Rep #: [id number] : 1955 F 63 From: Abraham Leary MD PCP: Joe Guzman MD Status: REG CLI Study: HIP, UNI W/ Pelvis 2-3 Views Date of Exam: 08/10/18 Exam# [id number] Ordering Dr: Reginald Guzman MD STUDY: X-RAY - PELVIS AND LEFT HIP REASON FOR EXAM: Female, 63 years old. Left hip pain TECHNIQUE: 3 views of the pelvis and hip. COMPARISON: None. FINDINGS: There is a normal bowel gas pattern. There are multiple calcified phleboliths. There is diffuse demineralization of the osseous structures. Normal bilateral iliac wings, sacroiliac joints and visualized sacrum. Normal bilateral superior and inferior pubic rami. Normal pubic symphysis. Normal bilateral ischial tuberosities. Normal visualized femoral head. Normal acetabulum. Normal hip joint. There is no fracture. RAD/HIP, UNI W/ Pelvis 2-3 Views IMPRESSION: Demineralization. No fracture or erosion. Electronically Signed: Abraham Leary MD at 15:37 EST , Service support , CC: Joe Guzman MD Optics Test Technician: Signed L/S SPINE MIN 4 Observed: 08/10/2018 Status: F Source: [place] VIEWS 3:30 PM [facility] REPOSITORY [facility] Imaging Services [address] [place] [address] L/S Spine Min 4 Views MR#: [id number] Acct: [id number] Name: ZAIN EASON Rep #: [id number] : 1955 F 63 From: Abraham Leary MD PCP: Joe Guzman MD Status: REG CLI Study: L/S Spine Min 4 Views Date of Exam: 08/10/18 Exam# [id number] Ordering Dr: Reginald Guzman MD STUDY: X-RAY - LUMBAR SPINE REASON FOR EXAM: Female, 63 years old. Lumbago TECHNIQUE: 5 view(s) of the lumbar spine were obtained. COMPARISON: None FINDINGS: Normal lumbar lordosis. There is no substantial scoliosis. There is a normal alignment of the vertebrae. There is diffuse demineralization with multi-level endplate spondylosis. Normal disc space heights. There is facet sclerosis of the lower lumbar spine There is no demonstrated fracture. The soft tissue structures are unremarkable. RAD/L/S Spine Min 4 Views IMPRESSION: Degenerative changes of the spine, as detailed above. Electronically Signed: Abraham Leary MD at 15:39 EST , Service support , CC: Joe Guzman MD Optics Test Technician: Signed INITAL EVALUATION (1) Observed: 06/27/2018 Status: F Source: [facility] 9:50 AM [facility] [address] [place] [address]. [address] [place] [address] Fax REHABILITATION SERVICES INITIAL EVALUATION MR#: [id number] Acct: [id number] Name: ZAIN EASON Rep #: [id number] : 1955 63 From: Stacie Gu DPT Referring Dr.: Joe Guzman MD Status: REG RCR Insurance: [employer] Patient's Visit Information ZAIN EASON is a 63 year old F referred to Physical Therapy by Joe Guzman with a diagnosis of Right Medial Calf Strain. Date of Evaluation: 06/27/18 Physical Therapist: Stacie Gu - Visit Plan Frequency: 3x /Week Duration: 2 Weeks Plan: Focus on stretching and US as modality with manual - Subjective Subjective: Right calf strain- was doing fall cleaning and then had pain- thought at first it was a blood clot- 2 weeks ago-had an ultrasound which was negative. Last week it started to push out- sent her to therapy to have it evaluation. Its getting better- she was on crutches but is now off of them. Describes pain as uncomfortable not painful 2/10 at the worst and just irritating. Pain is located along medial calf- and when she is on her leg to long it goes down the back. Can be pain free. Eases: ice and Ibuprofen. No N/T in the LE. Sleep: not disturbed at this point. When sitting for to long the leg kind of gates in the calf. 20 years ago had blood clots in the same area- thats why she was checked. Work: does not work outside of her home. Does not exercise outside of her housework. no x-rays or MRI- PMHx: HTN, cholesterol, Blood clots 20 years ago Meds: corig, lysinopril, certoline, prevastatin - Objective Posture: good throughout treatment session. Gait: angaltic- decrased stance on the right LE- poor heel strike and toe off due to decreased ROM and pain. SLS: unable without pain and when attempts her knee is bent to relieve pain. HR/TR: unable without pain and UE A. ROM: DF: neutral, PF: 60 degrees, Inv: 30 degrees Ever: 20 degrees- pain with Eversion and DF- Knee: 5-130 (normal secondary to partial knee replacement). Strength: hip: 4-/5 throughout, Knee: 5/5 Ankle: 4-/5 throughout available range. Flexibility: Gastroc: severe, Soleus: severe - Goals Goal 1:: Patient will be I with HEP and progression Goal Time Frame: 4-6 Weeks Goal 2:: Patient will ambulate >300 feet with a noramlized gait pattern Goal Time Frame: 4-6 Weeks Goal 3:: Patient will HR/TR with 0/10 pain Goal Time Frame: 4-6 Weeks Goal 4:: Patient will report 0/10 pain for 1 week Goal Time Frame: 4-6 Weeks - Rehabilitation Potential Physical Therapy Diagnosis: Patient presents with hypomobility she has decreased ROM, strength, flexibility and muscular endurance leading to abnormal gait pattern and increased pain with ADL's. Rehabilitation Potential: Fair - Anticipated Interventions Therapeutic Exercise to Include: Strength training, Endurance training, Balance training, Body mechanics, Postural training, Flexibilty training, Gait and locomotor training, Passive ROM, Active ROM For the Purpose of:: To improve muscle performance and motor function TENS: Yes Cryotherapy (ice pack, ice massage): Yes Thermo therapy (hot pack): Yes Ultrasound (thermal/non thermal): Yes Thank you for the opportunity to evaluate your patient. For Medicare and Medicare HMO plans, please review the plan of care and approve it. It will need to be FAXED BACK to us at [phone] for Medicare purposes. Please let me know if there are questions or concerns regarding this plan of care. Physician Signature: Date: <Electronically signed by Stacie Gu DPT> 06/27/18 0950 CC: Joe Guzman MD ELR Signed For Medicare only, by signing this I certify the plan of care. Physicians Signature Date VENOUS DUPLEX LOWER Observed: 06/18/2018 Status: F Source: [place] EXTREMITY 9:32 AM [facility] [place] [facility] Cardiovascular Services [address] [place] [address] Venous Duplex US, Unilateral 06/15/18 1047 MR#: [id number] Acct: [id number] Name: ZAIN EASON Rep #: [id number] : 1955 63 From: Mervin Wolf MD Attending Dr: Joe Guzman MD Status: REG CLI Ordering Dr: Reginald Guzman MD Date: 06/15/18 Location: [facility] Sex: F C Admitted: Reason For Study: RLE Pain RIGHT LEFT GSV is normal. CFV is compressible, spontaneous, phasic, CFV is compressible, spontaneous, phasic, competent, and demonstrates normal competent and demonstrates normal augmentation. augmentation. FV is compressible, spontaneous, phasic, competent and demonstrates normal augmentation. POP V is compressible, spontaneous, phasic, competent and demonstrates normal augmentation. T/P Trunk is compressible. PTV is compressible. RT PerV is compressible. Procedure Exam performed in department. A preliminary report was called and/or faxed to Dr. Guzman. Interpretation Summary Deep veins of the right lower extremity are patent and compressible segmentally. There is no evidence of right lower extremity deep vein thrombosis. Valvular competence appears intact within the proximal deep venous system on the right . The right greater saphenous vein appears patent and compressible segmentally. Ordering Physician: Joe Guzman Referring Physician: Joe Guzman Performed By: Martina Sutton RVT and Student 06/18/18 0932 Date Mervin Wolf MD CC: Joe Guzman MD Date Dictated: 06/15/18 1047 Date Transcribed: 06/18/18 0932 Optics Test Technician: Signed STRESS TEST ECHO W/O Observed: 05/22/2018 Status: F Source: [place] CONTRAST 4:01 PM [facility] Cardiovascular Services [address] [place] [address] Stress Test Echo w/o Contrast MR#: [id number] Acct: [id number] Name: ZAIN EASON Rep #: [id number] : 1955 63 From: Daniel Gill MD Primary Care: Joe Guzman MD Status: REG CLI Ordering Dr: Daniel Gill MD Sex: F C Reason For Study: CHEST PAIN Stress Results Protocol: Cuco Protocol Maximum Predicted HR: 157 bpm Target HR: 133 bpm% Max imum Predicted HR: 103 % DurationHeart Rate Stage (mm:ss) (bpm) BPCom ment BASELINE 67 128/82 STAGE 1 3:00 11 8 172/90 STAGE 2 3:00 14 2 188/88CHEST HEAVINESS, INCREASED SOB STAGE 3 3:00 16 2 202/96SOB RECOVERY 81 130/88 Stress Duration: 9:00 mm:ss Maximum Stress HR: 162 bpm Baseline Echocardiogram Findings Stress Echo Wall motion Data Resting WMIntermediate WMStress WM Resting Wall Motion Wall Motion Stress No regional wall motion No regional wall motion abnormalities noted. abnormalities noted. Ejection Fraction 55 %. Ejection Fraction 65 %. Interpretation Summary Exercise stress echocardiogram. Stress protocol: Resting EKG demonstrates normal sinus rhythm with a rate of 66 bpm occasional premature ventricular complexes noted resting blood pressures 128/82 mmHg. The patient exercised according to the regular Cuco protocol for a total duration of 9 minutes. Patient completed stage III of the Cuco protocol. The maximum heart rate attained was 162 bpm which was 103% of maximum predicted heart rate and a maximum workload of 10.1 metabolic equivalents. The patient maintained sinus rhythm throughout the recording with occasional premature ventricular complexes and a short period of ventricular bigeminy which appeared to be mildly symptomatic. There were no ST or T-wave changes noted at rest or during peak exercise to suggest ischemia. Resting blood pressure was 128/82 with a peak blood pressure of 202/96 mmHg. Stress echocardiogram. The resting echocardiographic images demonstrated no wall motion abnormalities noted with an ejection fraction of 55%. At peak exercise the estimated ejection fraction was 65% with no wall motion abnormalities present. The test was terminated due to leg fatigue. No clinical angina was noted. Conclusion: Exercise stress echocardiogram with no evidence of ischemia at a high workload. Excellent functional capacity. Normal resting and stress echocardiographic images. Ordering Physician: Daniel Gill Referring Physician: Daniel Gill Performed By: Bridgett Streeter, BEN, RVT 05/22/18 1601 Date Daniel Gill MD CC: Joe Guzman MD; Daniel Gill MD Date Dictated: 05/22/18 1258 Date Transcribed: 05/22/18 1601 Optics Test Technician: Signed LIVER PROFILE Collected: 05/18/2018 Status: F Source: [place] 10:51 AM [facility] [place] [place] TYPE CODE TESTS RESULT OUT OF RANGE REFERENCE UNITS LAB L501.1500 6.4-8.2 g/dL Normal T PROT 7.2 LAB L501.1800 3.2-5.0 g/dL Normal ALB 3.7 LAB L501.1950 2.2-4.2 g/dL Normal GLOB 3.5 LAB L501.4100 15-37 U/L Normal AST 24 LAB L501.4305 45-117 U/L Normal ALK P 105 LAB L501.4405 13-56 U/L Normal ALT 22 LAB L501.4600 0.20-1.00 mg/dL Normal T BILI 0.50 LAB L501.4700 0.00-0.30 mg/dL Normal D BILI 0.10 Performed By: #### L500.3400, L500.4100 #### [facility] [address] [place], [address] LIPID PROFILE Collected: 05/18/2018 Status: F Source: [place] 10:51 AM [facility] REPOSITORY TYPE CODE TESTS RESULT OUT OF RANGE REFERENCE UNITS LAB L501.4900 200 mg/dL Normal CHOL 189 Result Comment: <200 mg/dL Desirable 200-240 mg/dL Borderline >240 mg/dL High Risk LAB L501.5000 mg/dL Normal TRIG 153 Result Comment: The drugs N-Acetylcysteine and Metamizole may falsely depress this assay. Serum Triglycerides Reference Interval Normal <150 mg/dL Borderline high 150 - 199 mg/dL High 200 - 499 mg/dL Very High > or = 500 mg/dL LAB L501.6400 mg/dL Normal HDL 44 Result Comment: The drugs N-Acetylcysteine and Metamizole may falsely depress this assay. Reference Range HDL <40 mg/dL Low HDL Cholesterol HDL >or= 60 mg/dL High HDL Cholesterol LAB L501.6500 0-130 mg/dL Normal LDL 114 LAB L501.6600 5-40 mg/dL Normal VLDL 31 Performed By: #### L500.3400, L500.4100 #### [facility] [address] [place], [address] CARDIOLOGY VISIT Observed: 05/16/2018 Status: F Source: [place] RE[place] 9:51 AM [facility] [place] [facility] [address] [place] [address] OFFICE VISIT Date of Service: 05/16/18 MR#: [id number] Acct: [id number] Name: ZAIN EASON Rep #: [id number] : 1955 Provider: Daniel Gill MD Age/Sex: 63/F Location[place] [facility] [place] Status: Signed HPI [facility] Chief Complaint: Follow-up visit. Details: ZAIN EASON, is a 63 F who presents to the office today for a follow-up visit. She is a lady with a history of nonischemic cardiomyopathy which has since resolved you do remember that she had had previous premature ventricular complexes. She has done well since her last visit she does have occasional dizziness and lightheadedness but otherwise denies any chest pain or shortness breath or paroxysmal nocturnal dyspnea or pedal edema. She has had no neck arm or jaw discomfort suggest angina. She has been compliant with all her medications she has not had any syncopal spells. It appears that her blood pressure has been under good control. Her physical exam today demonstrates clear lung carter regular rate and rhythm no carotid bruit and no pedal edema. Intake Vital Signs05/16/18 Height 5 ft 6 in 05/16/18 Weight: 144 lb 05/16/18 Body Mass Index (BMI) 23.2 05/16/18 Blood Pressure 124/82 05/16/18 Blood Pressure Location Lt brachial Intake Visit Reasons: 1 Y FU Suspect Artist Required: No Accompanied by: none Is patient in pain?: No Allergies metoclopramide HCl [From Reglan] Adverse Reaction (Verified 05/16/18 09:19) Other Medications Aspirin E.C. [Ecotrin] 81 mg PO MOWEFR 08/23/13 [History Confirmed 05/16/18] Calcium Carbonate/Vitamin D3 [Calcium 600-Vit D3 400 Tablet] 1 ea PO DAILY 08/23/13 [History Confirmed 05/16/18] [place]-3 Fatty Acids/Fish Oil [Fish Oil Softgel] 1 ea PO DAILY 08/23/13 [History Confirmed 05/16/18] Omeprazole [Prilosec] 40 mg PO BID 04/16/17 [History Confirmed 05/16/18] Pravastatin [Pravachol] 20 mg PO QHS 04/28/17 [History Confirmed 05/16/18] carvedilol 12.5 mg tablet 12.5 mg PO BID #180 tab 11/15/17 [Rx Confirmed 05/16/18] lisinopril 40 mg tablet 40 mg PO DAILY #90 tab 04/27/18 [Rx Confirmed 05/16/18] sertraline 25 mg tablet 50 mg PO DAILY tab 05/16/18 [History Confirmed 05/16/18] [facility] Medical History Essential (primary) hypertension (Chronic) Hyperlipidemia (Chronic) Premature atrial beats (Chronic) Surgical History History of right knee joint replacement (Resolved) H/O arthroscopy of right knee (Resolved) Family History Father Heart disease Grandmother Heart disease Brother Myocardial infarction Uncle Myocardial infarction Social History Smoking Status: Never smoker ROS Const Const: Negative for fatigue, weakness, night sweats, excessive sweating, frequent falls, headache(s) or daytime sleepiness Eyes Eyes: Negative for loss of peripheral vision, transient loss of vision, blind spots, double vision or blurry vision ENT ENT: Positive for dizziness; negative for headache(s), balance problems, Nosebleed/epistaxis, tongue swelling or lip swelling Cardio Chest Pain: No Palpitations: No Edema: None Muscle aches with walking: None Resp Respiratory: Negative for SOB at rest, SOB orthopnea\SOB lying down, Cough, paroxysmal nocturnal dyspnea or SOB with activity GI GI: Negative nausea, vomiting, heartburn, black,tarry stools or bright, red blood in stools : Negative for hematuria Musc Musc: Negative for balance problems, muscle aches/ myalgia, muscle weakness or joint pain Skin Skin: Negative non-healing lesions, unusual bruising or rash Neuro Neuro: Positive for dizziness and lightheadedness; negative for weakness, frequent falls, headache(s), double vision, orthostatic symptoms, blurry vision or lack of coordination Paul Hematologic/Lymphatic: Negative for easy bruising or easy bleeding Endo Endo: Negative for fatigue, excessive sweating, cold intolerance, heat intolerance, increased thirst/drinking or hair loss Psych Psych: Negative for anxiety or depression Allergy Allergy/Immunology: Negative for throat swelling, Negative for tongue swelling, Negative for hives, Negative for rash, Negative for lip swelling Cardiology Exam Const Appearance: cooperative, healthy appearing, well developed, well groomed and no acute distress Nutritional Appearance: well nourished and average body habitus Orientation: alert, awake and oriented x3 Head Head: normal to inspection, normocephalic and atraumatic Ears: hearing grossly normal bilaterally and external ears normal Nose: external nose normal, nasal mucous membranes and turbinates normal, nares normal, septum normal, no nasal discharge Face and Sinus: face symmetric Mouth: oral mucosae normal, tongue normal, oropharynx normal and moist mucous membranes Teeth and gingiva: dentition normal Throat: posterior oropharynx normal, tonsils normal and uvula midline Eyes General: appearance normal, both eyes and all related structures Eyelids: eyelids normal Conjunctivae: conjunctivae normal Pupils: PERRL, normal by confrontation and accommodation normal EOM: EOM intact bilaterally Neck Neck: normal visual inspection, trachea midline and no JVD JVD: +5 Carotids: normal carotid upstroke and bounding pulses Chest Chest inspection: normal inspection of the chest, symmetric chest movement and normal respiratory effort Auscultation: Bilateral: Clear to Auscultation Cardio Palpation: normal PMI Rate: regular rate Rhythm: regular rhythm Heart sounds: S1 normal, S2 normal and normal, physiologic split S2; negative rub, gallop or murmur GI GI: normal to inspection, soft, no hepatosplenomegaly and bowel sounds present Neuro General: alert, awake, oriented x3, no focal sensory deficit, gait normal and moves all extremities Skin Skin: no rashes or lesions noted Extremities Pulses: Normal: Right Femoral Pulse, Left Femoral Pulse, Right Dorsalis Pedis Pulse, Left Dorsalis Pedis Pulse, Right Posterior Tibial Pulse, Left Posterior Tibial Pulse, Right Radial Pulse, Left Radial Pulse Lower Extremity Edema: None: Bilateral Musculoskel Musculoskeletal: No joint tenderness Psych Psychological: normal affect Assessment AND Plan 1. Essential (primary) hypertension I10 Plan She does have a history of hypertension. Her blood pressure appears to be under good control. She has complained of occasional dizziness I am not clear whether this is due to her blood pressure being low on the lisinopril as well as the Coreg. We will continue to monitor the above. 2. Chest pain R07.9 Plan She has had occasional chest discomfort which has gone into her back it is not necessarily related to activity and sometimes she feels she cannot get her breath. It is not entirely clear what this is secondary to but I would suggest that we obtain a stress echocardiogram as this would be able to screen for ischemia as well as any wall motion abnormalities. Depending on the findings further recommendations will be made. Orders Orders: 3. Hyperlipidemia E78.5 Plan Her lipid status appears to be excellent with a total cholesterol of 177, LDL of 104, and HDL of 54. No changes will be made. Thank you for allowing me to participate in the care of your patient. 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) Coding Level of Care Code Off vis,est,level 4 Diagnoses Essential (primary) hypertension I10 Chest pain R07.9 Hyperlipidemia E78.5 Coding Level of Care Code Off vis,est,level 4 Diagnoses Essential (primary) hypertension I10 Chest pain R07.9 Hyperlipidemia E78.5 05/16/18 0951 <Electronically signed by Daniel Gill MD> Date Daniel Gill MD Cosigner Signature: Date (if applicable) CC: Joe Guzman MD LIVER PROFILE Collected: 11/15/2017 Status: F Source: [place] 7:46 AM [facility] [place] Order Comment: Order Date: 05/20/17 Order Info: [id number] - *Hepatic Function Panel Order Info: [id number] - *Lipid Profile CC PCP Comments: 12 hours fasting, may have water. TYPE CODE TESTS RESULT OUT OF RANGE REFERENCE UNITS LAB L501.1500 6.4-8.2 g/dL Normal T PROT 7.2 LAB L501.1800 3.2-5.0 g/dL Normal ALB 3.9 LAB L501.1950 2.2-4.2 g/dL Normal GLOB 3.3 LAB L501.4100 15-37 U/L Normal AST 20 LAB L501.4305 45-117 U/L Normal ALK P 112 LAB L501.4405 13-56 U/L Normal ALT 21 Result Comment: Please note revised ALT reference range effective 2017. LAB L501.4600 0.20-1.00 mg/dL Normal T BILI 0.40 LAB L501.4700 0.00-0.30 mg/dL Normal D BILI 0.10 Performed By: #### L500.3400 #### [facility] [address] [place], [place], [id number] LIPID PROFILE Collected: 11/15/2017 Status: F Source: [place] 7:46 AM [facility] [place] Order Comment: Order Date: 05/20/17 Order Info: [id number] - *Hepatic Function Panel Order Info: [id number] - *Lipid Profile CC PCP Comments: 12 hours fasting, may have water. TYPE CODE TESTS RESULT OUT OF RANGE REFERENCE UNITS LAB L501.4900 200 mg/dL Normal CHOL 177 Result Comment: <200 mg/dL Desirable 200-240 mg/dL Borderline >240 mg/dL High Risk LAB L501.5000 mg/dL Normal TRIG 94 Result Comment: The drugs N-Acetylcysteine and Metamizole may falsely depress this assay. Serum Triglycerides Reference Interval Normal <150 mg/dL Borderline high 150 - 199 mg/dL High 200 - 499 mg/dL Very High > or = 500 mg/dL LAB L501.6400 mg/dL Normal HDL 54 Result Comment: The drugs N-Acetylcysteine and Metamizole may falsely depress this assay. Reference Range HDL <40 mg/dL Low HDL Cholesterol HDL >or= 60 mg/dL High HDL Cholesterol LAB L501.6500 0-130 mg/dL Normal LDL 104 LAB L501.6600 5-40 mg/dL Normal VLDL 19 Performed By: #### L500.4100 #### [facility] [address] [place], [place] [address], [address] ALLERGIES ALLERGIES DATE TYPE / NAME / CODE REACTION SEVERITY SOURCE CODE 05/16/2018 Drug metoclopramide Other Unknown [place] Allergy/41 HCl/[id number](RXNOR [facility] [id number]) Repository ENCOUNTERS ENCOUNTERS ADMIT/DISCHARGE ACCOUNT ADMITTING ENCOUNTER LOCATION SOURCE NUMBER CLASS 09/04/2018 [id number] Ambulatory [address] ing:PT Repository 08/22/2018 [id number] Ambulatory [facility] 2 [facility] ing:OPBD Repository 08/10/2018 [id number] Ambulatory [facility] Anitha 4 [facility] ing:MTRAD Repository 06/27/2018/ [id number] Ambulatory [address]ith[address] ing:PT Repository 06/15/2018 [id number] Ambulatory [facility] 8 [facility] ing:CVS Repository 05/22/2018 [id number] Ambulatory [address] ing:CVS Repository 05/22/2018 [id number] Ambulatory BMSBuilding:W [facility] 7 [facility] Repository 05/18/2018 [id number] Ambulatory [place] 5 [facility] ing:LAB Repository 05/16/2018/ [id number] Ambulatory BMSBuilding:B [place] 8 9 [facility] Repository 11/15/2017 [id number] Ambulatory [place] 9 [facility] ing:LAB Repository PAYERS PAYERS ENCOUNTER GUARANTOR PAYER SUBSCRIBER SOURCE 09/04/2018 DANY Velarde Primary ZAIN [id number] Insurance:MEDICAL VINCENTDOB: [facility] [place] Number: Repository [id number]: 330 [id number] [phone] (HP) Date:2579-77-92LO [address] [place] [phone]: 09/04/2018 Secondary NOT GIVENUNK [place] Insurance:SELF PAY [facility] Number: Effective Repository Date:2018-08-14 08/22/2018 DANY D Primary ZAIN [id number] Insurance:MEDICAL VINCENTDOB: [facility] [place]40[place] Number: Repository [id number]: 330 [id number] [phone] (HP) Date:5922-30-28YM [address] [address]MI: 08/22/2018 Secondary NOT GIVENUNK [place] Insurance:SELF PAY [facility] Number: Effective Repository Date:2018-08-14 08/10/2018 DANY Velarde Primary ZAIN Welsh [id number] Insurance:MEDICAL VINCENTDOB: [facility] [id number] Number: Repository [id number]: 330 [id number] [phone] (HP) Date:0443-68-86GO [address] [address]LZ: 08/10/2018 Secondary NOT GIVENUNK [place] Insurance:SELF PAY [facility] Number: Effective Repository Date:2018-08-10 06/27/2018 DANY [id number] Insurance:MEDICAL VINCENTDOB: [facility] 7943[place]18[place] Number: Repository [id number]: 330 [id number] [phone] (HP) Date:4085-28-81N[place] [address] [address]GB: 06/27/2018 Secondary NOT GIVENUNK [place] Insurance:SELF PAY [facility] Number: Effective Repository Date:2018-06-26 06/15/2018 DANY [id number] Insurance:MEDICAL VINCENTDOB: [facility] [id number] Number: Repository [id number]: 330 [id number] [phone] (HP) Date:2963-98-86ZB [address] [address]NW: 06/15/2018 Secondary NOT GIVENUNK [place] Insurance:SELF PAY [facility] Number: Effective Repository Date:2018-06-15 05/22/2018 DANY COTTONENT1623 Insurance:MEDICAL VINCENTDOB: [facility] 1691[place]16-[place] Number: Repository [id number]: 330 [id number] [phone] (HP) Date:2783-87-68[place] [address] [address]OR: 05/22/2018 Secondary NOT GIVENUNK [place] Insurance:SELF PAY [facility] Number: Effective Repository Date:2018-05-16 05/22/2018 DANY [id number] Insurance:MEDICAL VINCENTDOB: [address] Number: Repository [id number]: 330 [id number] [phone] (HP) Date:6417-61-05GY [address] [place] [address]VN: 05/22/2018 Secondary NOT GIVENUNK An[place] Insurance:SELF PAY [facility] Hospital Number: Effective Repository Date:2018-05-22 05/18/2018 Dany Eason1623 Insurance:MEDICAL VINCENTDOB: [facility] 6720[place]10-57[place] Number: Repository [id number]: 330 [id number] [phone] (HP) Date:5359-60-19ZN [address] [address]AK: 05/18/2018 Secondary NOT GIVENUNK An[place] Insurance:SELF PAY [facility] Number: Effective Repository Date:2018-05-18 05/16/2018 Dany Cottonent1623 Insurance:MEDICAL VINCENTDOB: [facility] [id number] Number: Repository [id number]: 330 [id number] [phone] (HP) Date:5912-35-09UC [address] [address]HZ: 05/16/2018 Secondary NOT GIVENUNK [place] Insurance:SELF PAY [facility] Number: Effective Repository Date:2018-05-16 11/15/2017 Dany Cottonent1623 Insurance:MEDICAL VINCENTDOB: [facility] [id number] Number: Repository [id number]: 330 [id number] [phone] (HP) Date:1926-22-87XS [address] [address]OH: 11/15/2017 Secondary NOT GIVENUNK [place] Insurance:SELF PAY [facility] Number: Effective Repository Date:2017-11-15
--- NOTE | 2018-11-24 16:53 | HP.PT.NRP ---
HP - Discharge Summary (1) - Patient Information ZAIN LOVE was seen in my office for initial evaluation on 08/17/18. The following Plan of Care was established for this patient: Initial Frequency: 2-3x /Week Initial Duration: 4-6 Weeks - Anticipated Interventions Patient/Client Instruction: Educate patient on: Condition, Plan of Care, Risk Factors, Benefits of Fitness Program For the Purpose of:: To improve self management Therapeutic Exercise to Include: Strength training, Body mechanics, Postural training, Flexibilty training, Dynamic Lumbar Stabilization For the Purpose of:: To decrease pain, To increase ROM, To improve muscle performance and motor function, To increase tolerance to activity/condition/position, To improve ability of physical actions for home/community/work/leisure TENS: Yes IF ES: Yes Cryotherapy (ice pack, ice massage): Yes Thermo therapy (hot pack): Yes Ultrasound (thermal/non thermal): Yes For the Purpose of:: To decrease pain, To decrease swelling/inflammation, To increase ROM, To improve nutrient delivery to tissue This patient was last seen in our office 09/04/18. Pertinent comments regarding their Physical therapy will appear below: This patient has not returned to Physical Therapy and is appropriate to return to MD for further follow-up as needed. At this point I will be discontinuing this patient from physical therapy. I would be happy to see this patient again in the future if found appropriate by the physician. Thank you! Lala El, PT, Cert MDT
== END 2018-09-04 19:00 | disposition home or self-care (01) ==
LOC: PT 15:00
PROVIDERS: Family Provider Family Medicine; PCP Family Medicine; Referring Provider Family Medicine; Visit Provider Family Medicine
DX: M51.36 Other intervertebral disc degeneration, lumbar region (principal)
CPT/HCPCS: 97014; 97035; 97110; 97161; 97530; G0283

== ENCOUNTER → 2018-10-02 14:57 | Outpatient (CLI) | payer OTHER, SELFPAY ==
--- NOTE | 2018-10-02 14:59 | BI_ITS ---
MAMMOGRAPHY - BILATERAL SCREENING REASON FOR EXAM: Female, 63 years old. Routine annual screening examination. PERTINENT HISTORY: Non-contributory. History of prior bilateral breast reduction surgery. TECHNIQUE: Digital bilateral breast radha (3D mammographic acquisition) in the CC and MLO projections. 2-D mediolateral oblique (MLO) and craniocaudad (CC) views of both breasts were obtained. CAD: Full Field Digital Mammography with Computer Added Detection was performed. COMPARISON: Comparison is made with prior study dated September 22, 2017 and August 31, 2016. FINDINGS: Breast Composition: There are scattered areas of fibroglandular density. There are no dominant masses or suspicious calcifications. Slight asymmetry in the deep lateral aspect of the left breast as seen on the craniocaudad view. The patient will be recalled for additional images including 90 degree lateral and compression spot views. No other significant abnormalities are identified. BI/SCREENING MAMM (CAD), BILAT IMPRESSION: Asymmetry in the deep lateral aspect of the left breast as described. The patient will be recalled for additional views including compression spot views of the left breast in the craniocaudad view and 90 degree lateral view of left breast. Recall Side: Left Breast ASSESSMENT CATEGORY: BIRADS Category 0: Incomplete. Need additional imaging evaluation. A letter regarding these results will be sent to the patient by the facility within 30 days. Approximately 10% of breast cancers are not detected by mammography. A normal mammogram should not delay biopsy of a clinically suspicious abnormality. [id number] Electronically Signed: Augustin Murray MD at 10:52 EST , Service support ,
== END ==
PROVIDERS: Family Provider Family Medicine; PCP Family Medicine; Referring Provider Family Medicine; Visit Provider Family Medicine
DX: Z00.00 Encounter for general adult medical examination without abnormal findings (principal); Z12.31 Encounter for screening mammogram for malignant neoplasm of breast
CPT/HCPCS: 77063; 77067

== ENCOUNTER → 2018-10-04 13:58 | Outpatient (CLI) | payer OTHER, SELFPAY ==
--- NOTE | 2018-10-04 14:02 | BI_ITS ---
MAMMOGRAPHY - UNILATERAL DIAGNOSTIC: LEFT BREAST REASON FOR EXAM: Female, 63 years old. Abnormal screening mammogram. PERTINENT HISTORY: Non-contributory. TECHNIQUE: 90 degree lateral as well as compression spot views of the left breast were obtained. CAD: Full Field Digital Mammography with Computer Added Detection was performed. COMPARISON: Comparison is made with prior mammogram dated October 02, 2018. FINDINGS: Breast Composition: There are scattered areas of fibroglandular density. There is a 4.9 mm well-defined nodule in the upper deep lateral portion of the breast. No other significant abnormalities are identified. BI/DIAG MAMM W/CAD, UNILAT IMPRESSION: 4.9 mm nodule in the upper deep lateral portion of the left breast. Correlation with ultrasound is recommended. ASSESSMENT CATEGORY: BIRADS Category 0: Incomplete. Need additional imaging evaluation. A letter regarding these results will be sent to the patient by the facility within 30 days. Approximately 10% of breast cancers are not detected by mammography. A normal mammogram should not delay biopsy of a clinically suspicious abnormality. Electronically Signed: Augustin Murray MD at 8:15 EST , Service support ,
--- NOTE | 2018-10-04 14:39 | US_ITS ---
STUDY: ULTRASOUND BREAST - LEFT REASON FOR EXAM: Female, 63 years old. Abnormal screening mammogram. TECHNIQUE: Axial and longitudinal images of the LEFT breast were performed with a high resolution ultrasound transducer. COMPARISON: Comparison is made with prior mammogram done earlier today. FINDINGS: LEFT Breast: The mammographic abnormality corresponds to a 5 mm x 3 mm x 3 mm well-defined hypoechoic nodule. A fatty hilum is seen within it suggestive of a small lymph node. This is at the 2:00 position of the breast at 4 cm from the nipple. US/Breast Limited Unilateral IMPRESSION: The mammographic abnormality corresponds to a 5 mm x 3 mm x 3 mm well-defined hypoechoic nodule most likely representing a small lymph node. ASSESSMENT CATEGORY: BIRADS Category 2: Benign. A letter regarding these results will be sent to the patient by the facility within 30 days. Electronically Signed: Augustin Murray MD at 8:17 EST , Service support ,
== END ==
PROVIDERS: Family Provider Family Medicine; PCP Family Medicine; Referring Provider Family Medicine; Visit Provider Family Medicine
DX: R92.2 Inconclusive mammogram (principal)
CPT/HCPCS: 76642; 77065

== ENCOUNTER → 2018-12-20 09:19 | Outpatient (CLI) | payer OTHER, SELFPAY ==
--- NOTE | 2018-12-20 09:24 | RAD_ITS ---
STUDY: X-RAY - SOFT TISSUE NECK REASON FOR EXAM: Female, 63 years old. Left anterior lymph node with pain and swelling TECHNIQUE: 2 view(s) of the neck were obtained. COMPARISON: None. FINDINGS: Normal visualized nasopharynx, oropharynx, hypopharynx. Normal epiglottis. Normal visualized subglottic tracheal air column. Normal prevertebral soft tissue structures. There are degenerative changes of the cervical spine with cervical spondylosis. The soft tissue structures are unremarkable. RAD/Neck for Soft Tissue IMPRESSION: 1. No obvious mass. Evaluation with ultrasound suggested based on history. 2. Degenerative changes of the cervical spine. Electronically Signed: Raymundo Pandya MD at 12:00 EDT , Service support ,
== END ==
PROVIDERS: Family Provider Family Medicine; PCP Family Medicine; Referring Provider Family Medicine; Visit Provider Family Medicine
DX: M54.2 Cervicalgia (principal)
CPT/HCPCS: 70360

== ENCOUNTER → 2019-01-04 | Outpatient (CLI) | payer OTHER, SELFPAY ==
--- NOTE | 2019-01-04 12:58 | US_ITS ---
STUDY: LIMITED LEFT NECK ULTRASOUND REASON FOR EXAM: Female, 63 years old. Palpable tender lump in the left neck. TECHNIQUE: Ultrasound evaluation of the left neck was performed with real-time and static limon-scale imaging. COMPARISON: None. FINDINGS: Within the region of concern within the left neck there is a within normal limits appearing lymph node measuring 1.2 x 0.7 x 0.4 cm. No discrete solid or cystic masses are visualized. US/Head/Neck Soft Tissue IMPRESSION: Normal appearing lymph node within the region of concern. Electronically Signed: Anabell Hull MD at 16:55 EDT Tel , Service support ,
== END | disposition home or self-care (01) ==
LOC: US 12:53
PROVIDERS: Family Provider Family Medicine; PCP Family Medicine; Referring Provider Family Medicine; Visit Provider Family Medicine
DX: M54.2 Cervicalgia (principal)
CPT/HCPCS: 76536

== ENCOUNTER → 2019-05-21 10:31 | Outpatient (CLI) | payer OTHER, SELFPAY ==
[2019-05-21 12:23] LABS: Absolute Lymphocyte Count 1.84 X10^3/uL (0.83-4.51); Absolute Neutrophil Count 2.3 X10^3/uL (2.0-7.7); Basophil# 0.03 X10^3/uL; Basophil% 0.6 % (0-1); Eosinophils% 2.2 % (0-5); Hematocrit 38.5 % (37-47); Hemoglobin 12.1 g/dL (12.0-15.0); Lymphocyte # 1.84 X10^3/ul (4.0); Lymphocyte % 39.7 % (19-41); Mean Corp Hgb Conc 31.4 g/dL (32-36); Mean Corpuscular Hgb 27.4 pg (27.0-32.0); Mean Corpuscular Volume 87.1 fL (81-99); Mean Platelet Vol. 11.6 fl (6.2-12.0); Monocyte# 0.35 X10^3/uL; Monocyte% 7.6 % (0-10); NRBC Flagged by Analyzer 0 % (0-5); Neutrophil % 49.7 % (47-70); Platelet Count 235 K/mm3 (150-450); RBC Distribution Width CV 12.9 % (11.6-14.6); RBC Distribution Width SD 41.4 fl (35.1-43.9); Red Blood Count 4.42 M/mm3 (4.2-5.4); White Blood Count 4.6 K/mm3 (4.4-11.0)
[2019-05-21 12:44] LABS: Vitamin B12 357 pg/mL (211-911); Vitamin D,25 Hydroxy 35.3 ng/mL (29.95-100.01)
[2019-05-21 12:46] LABS: ALB/GLOB Ratio 1.2 RATIO (0.9-2.4); AST(SGOT) 28 U/L (15-37); Alanine Aminotransfer ALT/SGPT 29 U/L (13-56); Albumin, Serum 3.8 g/dL (3.2-5.0); Alkaline Phosphatase 93 U/L (45-117); Anion Gap 10 (5-15); BUN 14 mg/dL (7-18); BUN/Creat Ratio 19.4 RATIO (10-20); Calcium,Total 9.2 mg/dL (8.5-10.1); Chloride 105 mmol/L (98-107); Creatinine, Serum 0.72 mg/dL (0.55-1.02); EST Glomerular Filtration Rate 87 mL/min (>60); Est Glom Filt Rate - Afr Amer 105 mL/min (>60); Globulin 3.3 g/dL (2.2-4.2); Glucose 90 mg/dL (74-106); Iron 76 ug/dL (50-170); Potassium 3.6 mmol/L (3.5-5.1); Protein, Total 7.1 g/dL (6.4-8.2); Sodium Level 143 mmol/L (136-145)
== END ==
PROVIDERS: Family Provider Family Medicine; PCP Family Medicine; Visit Provider Family Medicine
DX: R53.83 Other fatigue (principal)
CPT/HCPCS: 36415; 80053; 82306; 82607; 83540; 84443; 85025

== ENCOUNTER → 2019-05-21 12:45 | Outpatient (CLI) | payer OTHER, SELFPAY | PROVIDERS: Family Provider Family Medicine; PCP Family Medicine; Referring Provider Family Medicine; Visit Provider Family Medicine | DX: R35.0 Frequency of micturition (principal) | CPT/HCPCS: 87077; 87086; 87088; 87186 ==

== ENCOUNTER → 2019-05-22 10:06 | Outpatient (CLI) | payer OTHER, SELFPAY ==
[2019-05-22 09:27] VITALS: BMI 24.7
[2019-05-22 11:29] LABS: AST(SGOT) 29 U/L (15-37); Alanine Aminotransfer ALT/SGPT 28 U/L (13-56); Albumin, Serum 3.9 g/dL (3.2-5.0); Alkaline Phosphatase 95 U/L (45-117); Bilirubin, Direct 0.12 mg/dL (0.00-0.30); Cholesterol 198 mg/dL (200); Globulin 3.4 g/dL (2.2-4.2); High Density Lipoprotein 46 mg/dL; Protein, Total 7.3 g/dL (6.4-8.2); Triglycerides 181 mg/dL; Very Low Density Lipoprotein 36 mg/dL (5-40)
== END ==
PROVIDERS: Family Provider Family Medicine; PCP Family Medicine; Referring Provider Internal Medicine Cardiovascular Disease; Visit Provider Internal Medicine Cardiovascular Disease
DX: E78.5 Hyperlipidemia, unspecified (principal)
CPT/HCPCS: 36415; 80061; 80076

== ENCOUNTER → 2019-09-21 07:51 | Outpatient (CLI) | payer OTHER, SELFPAY ==
[2019-05-22 09:27] VITALS: BMI 24.7
[2019-09-21 10:12] LABS: Erythrocyte Sedimentation Rate 3 mm/hr (0-30)
[2019-09-21 10:14] LABS: Hematocrit 37.5 % (37-47); Hemoglobin 11.8 g/dL (12.0-15.0); Mean Corp Hgb Conc 31.5 g/dL (32-36); Mean Corpuscular Hgb 26.3 pg (27.0-32.0); Mean Corpuscular Volume 83.5 fL (81-99); Mean Platelet Vol. 11.5 fl (6.2-12.0); Platelet Count 238 K/mm3 (150-450); RBC Distribution Width SD 39.4 fl (35.1-43.9); Red Blood Count 4.49 M/mm3 (4.2-5.4); White Blood Count 3.9 K/mm3 (4.4-11.0)
[2019-09-21 10:20] LABS: CRP < 2.90 mg/L (0.0-3.0)
== END ==
PROVIDERS: PCP Family Medicine
DX: M17.11 Unilateral primary osteoarthritis, right knee (principal); Z96.651 Presence of right artificial knee joint; Z47.1 Aftercare following joint replacement surgery
CPT/HCPCS: 36415; 85027; 85652; 86140

== ENCOUNTER → 2019-11-16 10:37 | Outpatient (CLI) | payer OTHER, SELFPAY ==
[2019-05-22 09:27] VITALS: BMI 24.7
--- NOTE | 2019-11-16 10:40 | RAD_ITS ---
STUDY: X-RAY - ABDOMEN/PELVIS REASON FOR EXAM: Female, 64 years old. Irritable bowel TECHNIQUE: 3 AP supine views of the abdomen and pelvis. COMPARISON: 05/12/2017 KUB FINDINGS: Normal visualized lung bases. There is a moderate amount of stool in the ascending colon. There are a few mildly distended loops of small bowel in the right upper quadrant. There is no demonstrated free abdominal air. The visualized liver, spleen and kidneys are grossly normal in size and morphology. Normal soft tissue structures. There are diffuse degenerative changes of the visualized lumbar spine. RAD/Abd Inc Decub and/or Erect IMPRESSION: Specific bowel gas pattern cannot entirely exclude a small focal right upper quadrant ileus. Degenerative changes thoracolumbar spine. Electronically Signed: Anna Mayo MD at 18:00 EDT Tel , Service support ,
[2019-11-16 12:43] LABS: Erythrocyte Sedimentation Rate 3 mm/hr (0-30)
[2019-11-16 12:44] LABS: Absolute Lymphocyte Count 2.17 X10^3/uL (0.83-4.51); Absolute Neutrophil Count 3.6 X10^3/uL (2.0-7.7); Basophil# 0.03 X10^3/uL; Basophil% 0.5 % (0-1); Eosinophil# 0.17 X10^3/uL; Eosinophils% 2.6 % (0-5); Hematocrit 41.9 % (37-47); Hemoglobin 13.2 g/dL (12.0-15.0); Lymphocyte # 2.17 X10^3/ul (4.0); Lymphocyte % 33.5 % (19-41); Mean Corp Hgb Conc 31.5 g/dL (32-36); Mean Corpuscular Hgb 26.7 pg (27.0-32.0); Mean Corpuscular Volume 84.6 fL (81-99); Mean Platelet Vol. 11.9 fl (6.2-12.0); Monocyte% 7.7 % (0-10); NRBC Flagged by Analyzer 0 % (0-5); Neutrophil # 3.59 X10^3/uL (2.7-7.7); Neutrophil % 55.5 % (47-70); Platelet Count 273 K/mm3 (150-450); RBC Distribution Width CV 13.3 % (11.6-14.6); RBC Distribution Width SD 41.1 fl (35.1-43.9); Red Blood Count 4.95 M/mm3 (4.2-5.4); White Blood Count 6.5 K/mm3 (4.4-11.0)
[2019-11-16 13:18] LABS: ALB/GLOB Ratio 1.1 RATIO (0.9-2.4); AST(SGOT) 25 U/L (15-37); Alanine Aminotransfer ALT/SGPT 28 U/L (13-56); Albumin, Serum 4.1 g/dL (3.2-5.0); Alkaline Phosphatase 114 U/L (45-117); Anion Gap 6 (5-15); BUN 15 mg/dL (7-18); BUN/Creat Ratio 19.5 RATIO (10-20); Chloride 105 mmol/L (98-107); Creatinine, Serum 0.77 mg/dL (0.55-1.02); EST Glomerular Filtration Rate 80 mL/min (>60); Est Glom Filt Rate - Afr Amer 97 mL/min (>60); Globulin 3.7 g/dL (2.2-4.2); Glucose 101 mg/dL (74-106); Potassium 3.4 mmol/L (3.5-5.1); Protein, Total 7.8 g/dL (6.4-8.2); Sodium Level 142 mmol/L (136-145); Thyroid Stim Hormone (TSH) 1.32 uIU/mL (0.358-3.74)
== END ==
PROVIDERS: PCP Family Medicine; Referring Provider Family Medicine; Visit Provider Family Medicine
DX: K58.9 Irritable bowel syndrome, unspecified (principal)
CPT/HCPCS: 36415; 74019; 80053; 84443; 85025; 85652

== ENCOUNTER → 2020-01-15 10:23 | Outpatient (CLI) | payer OTHER, SELFPAY ==
[2019-05-22 09:27] VITALS: BMI 24.7
--- NOTE | 2020-01-15 10:25 | RAD_ITS ---
STUDY: X-RAY - LEFT SHOULDER REASON FOR EXAM: Female, 64 years old. Subacromial bursitis of left shoulder TECHNIQUE: 4 view(s) of the shoulder. COMPARISON: None. FINDINGS: Normal glenohumeral articulation. There is minimal widening of the AC joint suggesting a Type I acromioclavicular joint separation. Normal acromion. Normal humeral head and visualized proximal humerus. The soft tissue structures are unremarkable. Increased linear markings in the left midlung suggestive of linear atelectasis and/or scarring. RAD/Shoulder min 2 Views IMPRESSION: Minimal widening of the left acromioclavicular joint. Electronically Signed: Augustin Murray, at 10:51 EDT , Service support ,
== END ==
PROVIDERS: PCP Family Medicine; Referring Provider Family Medicine; Visit Provider Family Medicine
DX: M75.52 Bursitis of left shoulder (principal)
CPT/HCPCS: 73030

== ENCOUNTER → 2020-01-16 11:23 | Outpatient (CLI) | payer OTHER, SELFPAY ==
--- NOTE | 2020-01-16 11:25 | BI_ITS ---
MAMMOGRAPHY - BILATERAL SCREENING REASON FOR EXAM: Female, 64 years old. Routine annual screening examination. PERTINENT HISTORY: Non-contributory. History of prior bilateral breast reduction surgery. TECHNIQUE: Digital bilateral breast tootie (3D mammographic acquisition) in the CC and MLO projections. 2-D mediolateral oblique (MLO) and craniocaudad (CC) views of both breasts were obtained. CAD: Full Field Digital Mammography with Computer Added Detection was performed. COMPARISON: Comparison is made with prior study dated March 24, 2019 and September 22, 2017. FINDINGS: Breast Composition: The breasts are heterogeneously dense, which may obscure small masses. There are no dominant masses or suspicious calcifications. Stable 4.9 mm well-defined nodule in the upper deep lateral aspect of the left breast. This was demonstrated to be a small lymph node on prior sonogram. Stable benign-appearing bilateral axillary lymph nodes. No other significant abnormalities are identified. There has been no significant change since the prior study. BI/SCREEN MAMM (CAD) W/TOOTIE BILAT IMPRESSION: Stable bilateral screening mammogram. Yearly follow-up mammogram recommended. (A) ASSESSMENT CATEGORY: BIRADS Category 2: Benign. A letter regarding these results will be sent to the patient by the facility within 30 days. Approximately 10% of breast cancers are not detected by mammography. A normal mammogram should not delay biopsy of a clinically suspicious abnormality. [id number] Electronically Signed: Augustin Murray, at 13:21 EDT , Service support ,
== END ==
PROVIDERS: PCP Family Medicine; Referring Provider Family Medicine; Visit Provider Family Medicine
DX: Z00.00 Encounter for general adult medical examination without abnormal findings (principal); Z12.31 Encounter for screening mammogram for malignant neoplasm of breast
CPT/HCPCS: 77063; 77067

== ENCOUNTER → 2020-04-09 | Outpatient (CLI) | payer MEDICARE, SELFPAY ==
[2019-05-22 09:27] VITALS: BMI 24.7
== END | disposition home or self-care (01) ==
PROVIDERS: Visit Provider Family Medicine
DX: Z20.828 Contact with and (suspected) exposure to other viral communicable diseases (principal)
CPT/HCPCS: 87635; U0003

== ENCOUNTER → 2020-07-12 08:43 | Outpatient (CLI) | payer MEDICARE, SELFPAY ==
[2020-07-04 14:50] VITALS: BMI 24.7
[2020-07-12 10:15] LABS: AST(SGOT) 14 U/L (15-37); Alanine Aminotransfer ALT/SGPT 21 U/L (13-56); Albumin, Serum 3.5 g/dL (3.2-5.0); Alkaline Phosphatase 109 U/L (45-117); Cholesterol 192 mg/dL (200); Globulin 3.6 g/dL (2.2-4.2); High Density Lipoprotein 68 mg/dL; Protein, Total 7.1 g/dL (6.4-8.2); Triglycerides 95 mg/dL; Very Low Density Lipoprotein 19 mg/dL (5-40)
== END ==
PROVIDERS: PCP Family Medicine; Referring Provider Internal Medicine Cardiovascular Disease; Visit Provider Internal Medicine Cardiovascular Disease
DX: E78.00 Pure hypercholesterolemia, unspecified (principal)
CPT/HCPCS: 36415; 80061; 80076

== ENCOUNTER → 2020-09-23 16:07 | Outpatient (CLI) | payer MEDICARE, SELFPAY ==
[2020-07-04 14:50] VITALS: BMI 24.7
[2020-09-23 18:02] LABS: Hematocrit 36.6 % (37-47); Mean Corp Hgb Conc 32.8 g/dL (32-36); Mean Corpuscular Volume 85.5 fL (81-99); Mean Platelet Vol. 11.5 fl (6.2-12.0); Platelet Count 267 K/mm3 (150-450); RBC Distribution Width CV 13.2 % (11.6-14.6); Red Blood Count 4.28 M/mm3 (4.2-5.4); White Blood Count 7.1 K/mm3 (4.4-11.0)
[2020-09-23 18:06] LABS: Anion Gap 8 (5-15); BUN 24 mg/dL (7-18); BUN/Creat Ratio 28.9 RATIO (10-20); Calcium,Total 8.9 mg/dL (8.5-10.1); Chloride 107 mmol/L (98-107); Creatinine, Serum 0.83 mg/dL (0.55-1.02); EST Glomerular Filtration Rate 73 mL/min (>60); Est Glom Filt Rate - Afr Amer 89 mL/min (>60); Glucose 122 mg/dL (74-106); Potassium 3.5 mmol/L (3.5-5.1); Sodium Level 139 mmol/L (136-145)
[2020-09-23 18:16] LABS: Partial Thromboplast Time 27.1 Seconds (24.1-36.2); Prothrombin Time (Protime)PT. 13.1 SECONDS (11.7-14.9)
== END ==
PROVIDERS: PCP Family Medicine; Referring Provider Family Medicine; Visit Provider Family Medicine
DX: Z01.818 Encounter for other preprocedural examination (principal)
CPT/HCPCS: 36415; 80048; 85027; 85610; 85730

== ENCOUNTER → 2020-09-29 14:52 | Outpatient (CLI) | payer MEDICARE, SELFPAY ==
[2020-07-04 14:50] VITALS: BMI 24.7
[2020-09-29 16:05] LABS: Hematocrit 38.3 % (37-47); Hemoglobin 12.2 g/dL (12.0-15.0); Mean Corp Hgb Conc 31.9 g/dL (32-36); Mean Corpuscular Hgb 27.4 pg (27.0-32.0); Mean Corpuscular Volume 86.1 fL (81-99); Mean Platelet Vol. 11.3 fl (6.2-12.0); Platelet Count 253 K/mm3 (150-450); RBC Distribution Width SD 40.8 fl (35.1-43.9); Red Blood Count 4.45 M/mm3 (4.2-5.4)
[2020-09-29 16:10] LABS: Erythrocyte Sedimentation Rate 2 mm/hr (0-30)
[2020-09-29 16:34] LABS: CRP < 2.90 mg/L (0.0-3.0)
== END ==
PROVIDERS: PCP Family Medicine; Referring Provider Ophthalmology; Visit Provider Ophthalmology
DX: R51.9 Headache, unspecified (principal); H25.093 Other age-related incipient cataract, bilateral; H43.811 Vitreous degeneration, right eye
CPT/HCPCS: 36415; 85027; 85652; 86140

== ENCOUNTER → 2020-10-17 | Outpatient (CLI) | payer MEDICARE, SELFPAY ==
[2020-07-04 14:50] VITALS: BMI 24.7
== END | disposition home or self-care (01) ==
LOC: LABSPEC 11:41
PROVIDERS: PCP Family Medicine; Referring Provider Family Medicine; Visit Provider Family Medicine
DX: N39.0 Urinary tract infection, site not specified (principal)
CPT/HCPCS: 36415; 87086; 87088; 87186

== ENCOUNTER → 2020-12-20 | Outpatient (CLI) | payer MEDICARE, SELFPAY ==
[2020-12-20 09:59] VITALS: BMI 26.0
[2020-12-20 14:19] LABS: Mucous, Urine 0 SEEN /hpf (<or=2+)
[2020-12-20 14:23] LABS: Glucose, Dipstick Normal (Normal); Ketone-Dipstick 5 mg/dl (Negative); Leukocyte Esterase-Dipstick 500 /ul (Negative); Nitrite-Dipstick Positive (Negative); Occult Blood-Urine 250 /ul (Negative); Protein-Dipstick 100 mg/dl (Negative); Urine Urobilinogen 1 mg/dl (Normal)
[2020-12-20 14:25] LABS: Color, Urine Yellow (Yellow); Urine Bilirubin Dipstick 1 mg/dL (Negative); Urine Clarity Cloudy (Clear)
[2020-12-20 14:41] LABS: Bacteria 2+ /hpf (None Seen); Red Blood Cells-Urine 25-50 SEEN /hpf (0-5); Squamous Epithelial Cells - UA 0-5 SEEN /hpf (5-10); White Blood Cells >100 SEEN /hpf (0-5)
== END | disposition home or self-care (01) ==
PROVIDERS: PCP Family Medicine; Referring Provider Nurse Practitioner Family; Visit Provider Nurse Practitioner Family
DX: N39.0 Urinary tract infection, site not specified (principal); R10.9 Unspecified abdominal pain
CPT/HCPCS: 81001; 87086; 87088; 87186

== ENCOUNTER → 2021-02-04 12:36 | Outpatient (CLI) | payer MEDICARE, SELFPAY ==
[2020-12-20 09:59] VITALS: BMI 26.0
--- NOTE | 2021-02-04 12:39 | RAD_ITS ---
STUDY: X-RAY - CERVICAL SPINE REASON FOR EXAM: Female, 65 years old. SHOULDER PAIN TECHNIQUE: 6 view(s) of the cervical spine were obtained. COMPARISON: None FINDINGS: Craniocervical junction and cervical spine are intact and aligned with expected age-related changes. Dilatation is decreased. There is fusion across the C2-C3 disc levels ventrally and dorsally. The spine is stable in flexion and extension. Prevertebral soft tissues are normal. RAD/Cerv Spine Obl/Flex/Ext Comp IMPRESSION: Osteoporosis. Otherwise unremarkable age-appropriate cervical spine. Electronically Signed: Rito Kumar MD at 19:57 EDT Tel , Service support ,
== END ==
PROVIDERS: PCP Family Medicine; Referring Provider Family Medicine; Visit Provider Family Medicine
DX: M25.512 Pain in left shoulder (principal); M25.511 Pain in right shoulder
CPT/HCPCS: 72052

== ENCOUNTER → 2021-02-06 09:49 | Outpatient (CLI) | payer MEDICARE, SELFPAY ==
[2020-12-20 09:59] VITALS: BMI 26.0
[2021-02-06 12:53] LABS: ALB/GLOB Ratio 1.1 RATIO (0.9-2.4); AST(SGOT) 41 U/L (15-37); Alanine Aminotransfer ALT/SGPT 44 U/L (13-56); Albumin, Serum 3.7 g/dL (3.2-5.0); Alkaline Phosphatase 120 U/L (45-117); Anion Gap 6 (5-15); BUN 11 mg/dL (7-18); BUN/Creat Ratio 16.2 RATIO (10-20); Calcium,Total 8.4 mg/dL (8.5-10.1); Chloride 107 mmol/L (98-107); Cholesterol 191 mg/dL (200); Creatinine, Serum 0.68 mg/dL (0.55-1.02); EST Glomerular Filtration Rate 93 mL/min (>60); Est Glom Filt Rate - Afr Amer 112 mL/min (>60); Globulin 3.4 g/dL (2.2-4.2); Glucose 92 mg/dL (74-106); High Density Lipoprotein 50 mg/dL; Potassium 3.5 mmol/L (3.5-5.1); Protein, Total 7.1 g/dL (6.4-8.2); Sodium Level 141 mmol/L (136-145); Triglycerides 167 mg/dL; Very Low Density Lipoprotein 33 mg/dL (5-40)
== END ==
PROVIDERS: PCP Family Medicine; Referring Provider Family Medicine; Visit Provider Family Medicine
DX: E78.5 Hyperlipidemia, unspecified (principal)
CPT/HCPCS: 36415; 80053; 80061

== ENCOUNTER → 2021-02-24 08:48 | Outpatient (CLI) | payer MEDICARE, SELFPAY ==
[2020-12-20 09:59] VITALS: BMI 26.0
--- NOTE | 2021-02-24 08:55 | AAAS_ITS ---
Reason For Study: Screening for AAA Aorta Measurements Aorta Doppler Measurements Proximal aorta measures1.62 x 1.60cm. in cross- Peak systolic flow velocities within the proximal sectional axis. aorta measure 90.6 cm/sec. Proximal aorta measures1.64cm. in longitudinal Peak systolic flow velocities within the mid aorta axis. measure 103.4 cm/sec. Mid aorta measures1.23 x 1.21cm. in cross- Peak systolic flow velocities within the distal sectional axis. aorta measure 101.5 cm/sec. Mid aorta measures1.20cm. in longitudinal axis. Distal aorta measures1.18 x 1.23cm. in cross- sectional axis. Distal aorta measures1.21cm. in longitudinal axis. Left Iliac Artery Left iliac artery measures 0.83 x 0.78 cm. in the cross-sectional axis. Left iliac artery measures 0.81 cm. in the longitudinal axis. Peak systolic velocity in the left iliac artery measures 90.6 cm/sec. Right Iliac Artery Right iliac artery measures 0.82 x 0.80 cm. in the cross-sectional axis. Right iliac artery measures 0.81 cm. in the longitudinal axis. Peak systolic velocity in the right iliac artery measures 103.3 cm/sec. Procedure Aorta IVC Iliac vasculature or bypass grafts 73780. Exam performed in department. VL/AAA Screening Interpretation Summary The intra-abdominal aorta appears normal in size, without evidence of aneurysma l dilatation. The iliac arteries are also normal in caliber bilaterally. The intra-abdominal aort a and iliac arteries are patent, demonstrating normal, pulsatile arterial flow and normal peak systo lic velocities. Ordering Physician: Reginald Guzman Referring Physician: Reginald Guzman Performed By: Patricia Bird RVT and Student
== END ==
PROVIDERS: PCP Family Medicine; Referring Provider Family Medicine; Visit Provider Family Medicine
DX: Z13.6 Encounter for screening for cardiovascular disorders (principal)
CPT/HCPCS: 76706

== ENCOUNTER → 2021-02-25 10:49 | Outpatient (CLI) | payer MEDICARE, SELFPAY ==
[2020-12-20 09:59] VITALS: BMI 26.0
--- NOTE | 2021-02-25 10:52 | BI_ITS ---
MAMMOGRAPHY - BILATERAL SCREENING 3-D TOMOSYNTHESIS REASON FOR EXAM: Female, 65 years old. SCREENING PERTINENT HISTORY: No significant family history. TECHNIQUE: 2-D mammograms and 3-D Tomosynthesis of the breast (s) were performed. CAD was performed. COMPARISON: 01/16/2020. FINDINGS: The breast composition is of scattered fibroglandular tissue Scattered benign calcifications are seen. No dense spiculated masses or suspicious microcalcifications are identified. No architectural distortion is identified. There is no skin thickening or nipple retraction. There are benign looking lymph nodes in the axillary areas bilaterally There has been no significant change since the prior study of 01/16/2020. BI/SCREENING MAMM (CAD), BILAT IMPRESSION: No mammographic signs of malignancy. Routine yearly mammograms recommended. ASSESSMENT CATEGORY: BIRADS Category 1: Negative. A letter regarding these results will be sent to the patient by the facility within 30 days. FOLLOW UP RECOMMENDATION: Yearly follow up mammogram recommended. (A) Approximately 10% of breast cancers are not detected by mammography. A normal mammogram should not delay biopsy of a clinically suspicious abnormality. Electronically Signed: Hao Palomares, at 15:27 EDT Tel , Service support ,
--- NOTE | 2021-02-25 11:29 | BD_ITS ---
STUDY: DUAL ENERGY X-RAY ABSORPTIOMETRY / DXA REASON FOR EXAM: Female, 65 years old. [id number]. Patient is postmenopausal. Loss of height. TECHNIQUE: Bone Mineral Density (BMD) measurements of lumbar spine and bilateral hips were obtained. COMPARISON: Comparison is made with prior study dated 08/22/2018. FINDINGS: Lumbar Spine (L1-L4): g/cm2 (0.932) / T-score (-1.9) / Z-score (-0.3) Findings are suggestive of osteopenia with a moderate fracture risk. Left Femur Total: g/cm2 (0.722) / T-score (-2.3) / Z-score (-1.0) Left Femoral Neck: g/cm2 (0.741) / T-score (-2.1) / Z-score (-0.6) Right Femur Total: g/cm2 (0.725) / T-score (-2.2) / Z-score (-1.0) Right Femoral Neck: g/cm2 (0.755) / T-score (-2.0) / Z-score (-0.5) The T-Scores on the most recent prior examination were: Lumbar Spine (L1-L4): There has been worsening of bone density since the previous examination. Left Femur Total: which represents a worsening of 0.3%. Right Femur Total: which represents an improvement of 1.4%. BD/Dexa Bone Density Study IMPRESSION: The patient is considered osteoporotic as outlined below according to World Ramsey Organization (WHO) criteria with a high fracture risk. There has been worsening of bone density since the previous examination. Reference Information: The T-score is the number of standard deviations above or below the standard which is normal for young adults at their peak bone mineral density. The World Health Organization (WHO) interprets the T-scores as follows: Above -1 Normal bone density Between -1 and -2.5 Osteopenia Equal to / or below -2.5 Osteoporosis As a practical clinical guideline, osteopenia may be graded as follows: Mild -1 through -1.5 Moderate -1.6 through -2.0 Severe -2.1 through -2.4 The Z-score is the number of standard deviations above or below age-matched controls. A Z-score of less than -1.5 would be considered abnormal. References: 1. NIH Osteoporosis and Related Bone Diseases www osteo.org 2. International Society for Clinical Densitometry www iscd.org 3. National Osteoporosis Foundation www nof.org Electronically Signed: Augustin Murray MD at 15:35 EDT , Service support ,
== END ==
PROVIDERS: PCP Family Medicine; Referring Provider Family Medicine; Visit Provider Family Medicine
DX: Z00.00 Encounter for general adult medical examination without abnormal findings (principal); Z12.31 Encounter for screening mammogram for malignant neoplasm of breast; Z78.0 Asymptomatic menopausal state
CPT/HCPCS: 77067; 77080

== ENCOUNTER → 2021-07-07 11:02 | Outpatient (CLI) | payer MEDICARE, SELFPAY ==
[2021-07-07 12:11] LABS: Creatinine, Serum 0.76 mg/dL (0.55-1.02); EST Glomerular Filtration Rate 81 mL/min (>60); Est Glom Filt Rate - Afr Amer 98 mL/min (>60)
[2021-07-07 13:16] LABS: Anion Gap 6 (5-15); BUN 17 mg/dL (7-18); BUN/Creat Ratio 22.4 RATIO (10-20); Chloride 106 mmol/L (98-107); Glucose 102 mg/dL (74-106); Magnesium 2.1 mg/dL (1.6-2.6); Potassium 3.1 mmol/L (3.5-5.1); Sodium Level 140 mmol/L (136-145); Thyroid Stim Hormone (TSH) 1.34 uIU/mL (0.358-3.74)
== END ==
LOC: LAB.FUTURE 11:04 → LAB 11:55
PROVIDERS: PCP Family Medicine
DX: E78.5 Hyperlipidemia, unspecified (principal); I10 Essential (primary) hypertension; I42.8 Other cardiomyopathies; I49.3 Ventricular premature depolarization
CPT/HCPCS: 36415; 80048; 82565; 83735; 84443

== ENCOUNTER 2021-08-29 22:12 | Emergency (ER) | payer MEDICARE, SELFPAY ==
[2021-08-29 22:13] VITALS: BP 159/102; PULSE 75; RESP 16; TEMP 36.5; O2SAT 97; BMI 25.1
[2021-08-29 22:16] VITALS: BP 171/94; PULSE 74; RESP 22; TEMP 36.5; O2SAT 98
[2021-08-29] MEDS: Ondansetron 4 MG/2 ML Vial IV ×2 (22:36→23:23)
--- NOTE | 2021-08-29 23:11 | CT_ITS ---
HISTORY: upper and lower abd pain, n/v/d EXAMINATION: CT Abdomen And Pelvis W/ Contrast Injection TECHNIQUE: Helically acquired images were obtained of the abdomen and pelvis following IV contrast. A radiation dose optimization technique was used for this scan. IV Contrast dosage and agent: 100mL [id number]-[id number] Oral contrast: None. COMPARISON: None FINDINGS: LOWER CHEST: Lung bases are clear. No cardiomegaly or pericardial effusion. Small hiatal hernia. LIVER: Homogeneous. No focal mass. GALLBLADDER AND BILIARY TREE: Gallbladder not seen. No intra- or extrahepatic biliary ductal dilation. PANCREAS: No focal cystic or solid mass. SPLEEN: Normal size without focal cystic or solid mass. ADRENAL GLANDS: No nodules. KIDNEYS AND URETERS: Normal renal size and position. No hydronephrosis. PERITONEUM: No ascites or free air. BOWEL: Normal appendix. Increased small bowel fluid contents with minimal distention. No focal inflammatory bowel wall changes. LYMPH NODES: No enlarged mesenteric or retroperitoneal lymph nodes. VESSELS: Aorta is non-dilated. URINARY BLADDER: Unremarkable. REPRODUCTIVE ORGANS: No pelvic masses. Uterus absent. ABDOMINAL WALL: No discrete abdominal or pelvic wall hernia. BONES: No acute or aggressive abnormality. CT/Abdomen/Pelvis W IV Cont ONLY IMPRESSION: Nonspecific small bowel changes which may indicate enteritis in the appropriate clinical setting. Individualized dose optimization techniques were used for this CT. at 0046 Reported and signed by: Joaquín Pickard MD Electronically Signed: Joaquín Pickard MD at 0:45 EST Tel , Service support ,
[2021-08-29] MEDS: 0.9% Normal Saline 1,000 ML 999 ML IV (23:23)
[2021-08-29 23:36] LABS: Absolute Lymphocyte Count 2.06 X10^3/uL (0.83-4.51); Absolute Neutrophil Count 13.6 X10^3/uL (2.0-7.7); Basophil# 0.05 X10^3/uL; Basophil% 0.3 % (0-1); Eosinophil# 0.11 X10^3/uL; Eosinophils% 0.6 % (0-5); Hematocrit 42.5 % (37-47); Hemoglobin 14.2 g/dL (12.0-15.0); Lymphocyte # 2.06 X10^3/ul (0.83-4.51); Mean Corp Hgb Conc 33.4 g/dL (32-36); Mean Corpuscular Hgb 27.6 pg (27.0-32.0); Mean Corpuscular Volume 82.5 fL (81-99); Mean Platelet Vol. 11.3 fl (6.2-12.0); Monocyte# 1.09 X10^3/uL; Monocyte% 6.4 % (0-10); NRBC Flagged by Analyzer 0 % (0-5); Neutrophil # 13.63 X10^3/uL (2.7-7.7); Neutrophil % 79.8 % (47-70); Platelet Count 298 K/mm3 (150-450); RBC Distribution Width CV 12.9 % (11.6-14.6); RBC Distribution Width SD 38.8 fl (35.1-43.9); Red Blood Count 5.15 M/mm3 (4.2-5.4); White Blood Count 17.1 K/mm3 (4.4-11.0)
[2021-08-29 23:52] LABS: ALB/GLOB Ratio 1.2 RATIO (0.9-2.4); AST(SGOT) 41 U/L (15-37); Alanine Aminotransfer ALT/SGPT 41 U/L (13-56); Albumin, Serum 4.5 g/dL (3.2-5.0); Alkaline Phosphatase 118 U/L (45-117); Anion Gap 12 (5-15); BUN 23 mg/dL (7-18); BUN/Creat Ratio 28.4 RATIO (10-20); Calcium,Total 10.1 mg/dL (8.5-10.1); Chloride 108 mmol/L (98-107); Creatinine, Serum 0.81 mg/dL (0.55-1.02); EST Glomerular Filtration Rate 75 mL/min (>60); Est Glom Filt Rate - Afr Amer 91 mL/min (>60); Estimated Creatinine Clearance 63.96 ml/min; Globulin 3.8 g/dL (2.2-4.2); Glucose 159 mg/dL (74-106); Lipase 226 U/L (73-393); Protein, Total 8.3 g/dL (6.4-8.2); Sodium Level 142 mmol/L (136-145)
--- NOTE | 2021-08-30 00:46 | EDS_ITS ---
HPI History of Present Illness Chief Complaint: General Illness Informant: patient Onset/Context/Timing Onset: Today (several hours) Context: Gradual Onset (about 2 hrs after eating dinner) Timing: Continuous and Waxes and wanes Quality: aching Location: epigastrium and mid-lower abd Current Severity: Mild Maximum Severity: Severe Worsened by: nothing Relieved by: nothing Associated Symptoms Associated Symptoms: n/v/d Narrative Narrative: Patient states she started having abdominal pain couple hours after dinner tonight, upper and lower nonlateralizing for the most part, associated with vomiting and some diarrhea. No hematochezia or hematemesis. No melena. She does not take any anticoagulant medications. Pain in the epigastrium radiated straight through to her back, but that has let up now. She states she had a remote cholecystectomy but 19 years ago just prior to the cholecystectomy, she had some type of bile duct manipulation that she does not remember any details about. Denies any problems urinating recently. [facility] Medical History Essential (primary) hypertension Hyperlipidemia Non-ischemic cardiomyopathy Premature ventricular contractions Home Medications omega-3 fatty acids-fish oil 1 ea PO DAILY 08/23/13 [History Last Taken 09/06/13 08:00] pravastatin 20 mg PO QHS 04/28/17 [History Last Taken Unknown] lisinopril 40 mg tablet 40 mg PO DAILY #90 tab 04/23/19 [Rx Last Taken Unknown] biotin 5,000 mcg sublingual tablet 5,000 mcg SUBLINGUAL DAILY 05/22/19 [History Last Taken Unknown] cholecalciferol (vitamin D3) 25 mcg (1,000 unit) capsule 25 mcg PO DAILY 07/04/20 [History Last Taken Unknown] cholestyramine (with sugar) 4 gram powder for susp in a packet 1 ea PO DAILY ea 07/04/20 [History Last Taken Unknown] pantoprazole 40 mg tablet,delayed release 40 mg PO DAILY tab 07/04/20 [History Last Taken Unknown] sertraline 50 mg tablet 25 mg PO DAILY #90 tab 07/04/20 [History Last Taken Unknown] calcium carbonate 600 mg-vitamin D3 12.5 mcg (500 unit) capsule cap PO 12/20/20 [History Last Taken Unknown] phenazopyridine 100 mg tablet 100 mg PO TID PRN 0 Days #6 tablet 12/20/20 [Rx Last Taken Unknown] vitamin B complex 1 tablet PO DAILY 12/20/20 [History Last Taken Unknown] carvedilol 12.5 mg tablet 12.5 mg PO BID #180 tab 06/30/21 [Rx Last Taken Unknown] dicyclomine 20 mg PO Q6H PRN #20 capsule 08/30/21 [Rx Last Taken Unknown] ondansetron 8 mg PO Q8H PRN PRN #20 tab 08/30/21 [Rx Last Taken Unknown] Allergy/AdvReac Type Severity Reaction Status Date / Time metoclopramide HCl AdvReac Other Verified 12/20/20 10:00 [From Reglan] Family History Father Heart disease Grandmother Heart disease Brother Myocardial infarction Uncle Myocardial infarction Surgical History H/O arthroscopy of right knee History of bilateral breast reduction surgery History of cholecystectomy History of common bile duct surgery History of hysterectomy History of left heart catheterization (06/27/06) History of right knee joint replacement Social History Smoking Status: Never smoker alcohol intake: current alcohol intake frequency: a few times a month ROS ROS ED Constitutional Constitutional ED: Denies chills or fever(s) Eyes Eyes: Denies change in vision or diplopia ENT ENT ED: Denies rhinorrhea or sore throat Cardiovascular Cardiovascular: Denies chest pain or palpitations Respiratory/Chest Respiratory/Chest: Denies cough or dyspnea Gastrointestinal Gastrointestinal: Reports as per HPI, abdominal pain, diarrhea, nausea and vomiting Genitourinary Genitourinary ED: Denies dysuria or hematuria Musculoskeletal Musculoskeletal: Reports as per HPI and back pain; Denies neck pain Integumentary Denies abscess or rash Neurologic Neurologic: Denies headache(s), paresthesias or weakness Psychiatric Psychiatric: Denies anxiety or suicidal thoughts EXAM Physical Exam Const Vital Signs: 08/29/21 22:13 08/29/21 22:16 08/29/21 22:17 Temperature 97.7 F L 97.7 F L Temperature Source Oral Oral Pulse Rate 75 74 Respiratory Rate 16 22 H Respiratory Effort Normal Non-Labored Respiratory Pattern Normal Blood Pressure 159/102 H 171/94 H Blood Pressure Mean 121 119 Pulse Ox 97 98 Oxygen Delivery Method Room Air Room Air 08/30/21 00:57 Temperature Temperature Source Pulse Rate 88 Respiratory Rate 16 Respiratory Effort Respiratory Pattern Blood Pressure 169/91 H Blood Pressure Mean 117 Pulse Ox 93 Oxygen Delivery Method Room Air Positive well nourished and well developed General Appearance ED: well developed and NAD HEENT Reports moist mucous membranes normocephalic and atraumatic Eyes PERRL, EOMs intact bilaterally and no scleral icterus Neck full ROM and supple Resp normal respiratory effort and clear to auscultation bilaterally Cardio regular rate, regular rhythm and no murmurs GI non-distended GI Narrative: Tender epigastrium and medial right upper quadrant without guarding or rebound. Mildly tender suprapubic, very benign lower abdominal exam. Auscultation: normoactive bowel sounds Palpation: soft Back/Spine no CVA tenderness General Back: other FROM Extremity normal to inspection General Extremety ED: Negative for edema, pulses abnormal or tenderness General Extremity: Negative for edema or pulses abnormal Neuro oriented x3, CN's II-XII intact bilaterally and no sensory deficits noted Sensorium / Orientation: awake and alert Motor Exam: strength 5/5 throughout Skin no rashes or lesions noted and no wounds MDM MDM MDM Narrative Medical decision making narrative: Patient was treated with IV fluids and Zofran, she felt much better, her nausea was resolved, and without treating her pain specifically, as it was already significantly improved, it completely resolved and her abdomen was benign afterwards. Her liver enzymes and lipase are within normal limits with the exception of a slightly elevated alkaline phosphatase of 118, which is nonspecific and can occur with vomiting. CT shows signs of enteritis, no sign of obstruction or other acute emergent finding. Given that the patient clinically is doing very well, she feels much better is tolerating oral fluids, at this time I think she can go home with supportive care, she only had one other bout of diarrhea here there was no blood in it, but we were unable to isolate it for testing. I discussed reasons to return and follow-up, prescribe Zofran and dicyclomine only to use as needed if symptoms persist, she is comfortable with that plan. Lab Data Attestation: I reviewed the patient's lab results. Labs: Laboratory Results - last 24 hr 08/29/21 08/29/21 22:20 22:20 WBC 17.1 H RBC 5.15 Hgb 14.2 Hct 42.5 MCV 82.5 MCH 27.6 MCHC 33.4 RDW Std Deviation 38.8 RDW Coeff of Stiven 12.9 Plt Count 298 MPV 11.3 Immature Gran % (Auto) 0.900 Neut % (Auto) 79.8 H Lymph % (Auto) 12.0 L Haskell % (Auto) 6.4 Eos % (Auto) 0.6 Baso % (Auto) 0.3 Absolute Neuts (auto) 13.6 H Absolute Lymphs (auto) 2.06 Nucleated RBC % 0 Sodium 142 Potassium 3.0 L Chloride 108 H Carbon Dioxide 22.0 Anion Gap 12 BUN 23 H Creatinine 0.81 Estim Creat Clear Calc 63.96 Est GFR (MDRD) Af Amer 91 Est GFR (MDRD) Non-Af 75 BUN/Creatinine Ratio 28.4 H Glucose 159 H Calcium 10.1 Total Bilirubin 0.80 AST 41 H ALT 41 Alkaline Phosphatase 118 H Total Protein 8.3 H Albumin 4.5 Globulin 3.8 Albumin/Globulin Ratio 1.2 Lipase 226 Radiography Diagnostic Testing: Clinical Impression(s) from Imaging Studies Abdomen/Pelvis CT 08/29/21 23:11 IMPRESSION: Nonspecific small bowel changes which may indicate enteritis in the appropriate clinical setting. Individualized dose optimization techniques were used for this CT. at 0046 Reported and signed by: Joaquín Pickard MD Electronically Signed: Joaquín Pickard MD at 0:45 EST Tel , Service support , Discharge Plan Triage Chief Complaint: General Illness ED Provider: Abraham Rider Dx/Rx/DC Orders Clinical Impression: Gastroenteritis, Dehydration, mild, Acute epigastric pain Instructions: ED Food Poison Or Gastroenteritis Prescriptions: New dicyclomine 10 MG capsule 20 mg PO Q6H PRN (Reason: abdominal discomfort) Qty: 20 RF: 0 ondansetron [ondansetron] 4 MG tablet 8 mg PO Q8H PRN PRN (Reason: Nausea) Qty: 20 RF: 0 No Action biotin 5,000 mcg tablet, sublingual 5,000 mcg SUBLINGUAL DAILY RF: 0 sertraline 50 mg tablet 25 mg PO DAILY Qty: 90 RF: 0 cholecalciferol (vitamin D3) 25 mcg (1,000 unit) capsule 25 mcg PO DAILY RF: 0 pantoprazole 40 mg tablet,delayed release (DR/EC) 40 mg PO DAILY RF: 0 cholestyramine (with sugar) 4 gram powder in packet 1 ea PO DAILY RF: 0 calcium carbonate-vitamin D3 [Calcium 600 with Vitamin D3] 600 mg(1,500mg) - 500 unit capsule PO RF: 0 vitamin B complex [B Complex-Vitamin B12] Tablet 1 tablet PO DAILY RF: 0 phenazopyridine [Pyridium] 100 mg tablet 100 mg PO TID PRN (Reason: pain) 0 Days Qty: 6 RF: 0 omega-3 fatty acids-fish oil 1 EACH capsule 1 ea PO DAILY RF: 0 pravastatin 20 MG tablet 20 mg PO QHS RF: 0 lisinopril 40 mg tablet 40 mg PO DAILY Qty: 90 RF: 4 carvedilol 12.5 mg tablet 12.5 mg PO BID Qty: 180 RF: 3 Primary Care Provider: Reginald Guzman Referrals: Reginald Guzman MD [Primary Care Provider] - 3-5 Days if not improving Disposition Disposition: Home, Self Care
[2021-08-30 00:57] VITALS: BP 169/91; PULSE 88; RESP 16; O2SAT 93
[2021-08-30 02:09] VITALS: BP 146/100; PULSE 84; RESP 16; O2SAT 92
[2021-08-30 02:18] VITALS: BP 159/69; PULSE 67; RESP 18; O2SAT 93
== END 2021-08-30 02:19 | disposition home or self-care (01) ==
PROVIDERS: Emergency Provider Emergency Medicine; PCP Family Medicine
DX: K52.9 Noninfective gastroenteritis and colitis, unspecified (principal); E86.0 Dehydration; I10 Essential (primary) hypertension; I42.8 Other cardiomyopathies; E78.5 Hyperlipidemia, unspecified; Z90.49 Acquired absence of other specified parts of digestive tract; Z79.899 Other long term (current) drug therapy
CPT/HCPCS: 74177; 80053; 83690; 85025; 96361; 96374; 99285; J7030; Q9967; A4216; J2405

== ENCOUNTER 2021-11-03 11:37 | Outpatient (CLI) | payer MEDICARE, SELFPAY ==
[2021-11-03 16:12] LABS: Anion Gap 8 (5-15); BUN 21 mg/dL (7-18); BUN/Creat Ratio 29.6 RATIO (10-20); Calcium,Total 9.3 mg/dL (8.5-10.1); Chloride 104 mmol/L (98-107); Creatinine, Serum 0.71 mg/dL (0.55-1.02); EST Glomerular Filtration Rate 87 mL/min (>60); Est Glom Filt Rate - Afr Amer 106 mL/min (>60); Glucose 77 mg/dL (74-106); Magnesium 2.5 mg/dL (1.6-2.6); Potassium 3.9 mmol/L (3.5-5.1); Sodium Level 138 mmol/L (136-145)
== END 2021-11-03 23:59 | disposition home or self-care (01) ==
LOC: MFPLAB 11:40
PROVIDERS: PCP Family Medicine; Referring Provider Family Medicine; Visit Provider Family Medicine
DX: R25.2 Cramp and spasm (principal)
CPT/HCPCS: 36415; 80048; 83735

== ENCOUNTER → 2022-01-15 | Outpatient (CLI) | payer MEDICARE, SELFPAY ==
--- NOTE | 2022-01-15 11:43 | RAD_ITS ---
STUDY: X-RAY - RIGHT HAND REASON FOR EXAM: Female, 66 years old. Hand pain. TECHNIQUE: 3 view(s) of the hand. COMPARISON: None. FINDINGS: Osteopenia. Mild arthrosis of the radiocarpal articulation. Mild arthrosis of the distal radioulnar joint. Moderate arthrosis of the radiocarpal Moderate arthrosis at the first CMC joint. Moderate arthrosis of the MCP and IP joints. The soft tissue structures are unremarkable. RAD/Hand Min 3 Views IMPRESSION: Osteopenia with diffuse osteoarthritic changes as described. No acute abnormality, chondrocalcinosis, erosive changes or periostitis. Electronically Signed: Davide Jordan MD at 12:56 EDT ,
== END | disposition home or self-care (01) ==
LOC: MTRAD 11:40
PROVIDERS: PCP Family Medicine; Referring Provider Family Medicine; Visit Provider Family Medicine
DX: M79.641 Pain in right hand (principal)
CPT/HCPCS: 73130

== ENCOUNTER → 2022-03-04 | Outpatient (CLI) | payer MEDICARE, SELFPAY ==
[2022-03-04 13:10] LABS: Vitamin D,25 Hydroxy 39.3 ng/mL
[2022-03-04 13:17] LABS: Anion Gap 5 (5-15); BUN 15 mg/dL (7-18); BUN/Creat Ratio 21.6 RATIO (10-20); Chloride 107 mmol/L (98-107); Cholesterol 186 mg/dL (200); EST Glomerular Filtration Rate 90 mL/min (>60); Est Glom Filt Rate - Afr Amer 108 mL/min (>60); Glucose 91 mg/dL (74-106); High Density Lipoprotein 60 mg/dL; Potassium 3.7 mmol/L (3.5-5.1); Sodium Level 140 mmol/L (136-145); Thyroid Stim Hormone (TSH) 1.43 uIU/mL (0.358-3.74); Triglycerides 121 mg/dL; Very Low Density Lipoprotein 24 mg/dL (5-40)
[2022-03-04 13:19] LABS: PTHIN 59.5 pg/mL (18.4-80.1)
== END | disposition home or self-care (01) ==
LOC: MFPLAB 10:38
PROVIDERS: PCP Family Medicine; Visit Provider Family Medicine
DX: M85.80 Other specified disorders of bone density and structure, unspecified site (principal); I10 Essential (primary) hypertension
CPT/HCPCS: 36415; 80048; 80061; 82306; 82330; 83970; 84443

== ENCOUNTER → 2022-03-09 | Outpatient (CLI) | payer MEDICARE, SELFPAY ==
--- NOTE | 2022-03-09 13:17 | BI_ITS ---
MAMMOGRAPHY - BILATERAL SCREENING REASON FOR EXAM: Female, 66 years old. Routine annual screening examination. PERTINENT HISTORY: Non-contributory. History of prior bilateral breast reduction surgery. TECHNIQUE: Digital bilateral breast tootie (3D mammographic acquisition) in the CC and MLO projections. 2-D mediolateral oblique (MLO) and craniocaudad (CC) views of both breasts were obtained. CAD: Full Field Digital Mammography with Computer Added Detection was performed. COMPARISON: Comparison is made with prior study dated 02/25/2021 and 01/16/2020. FINDINGS: Breast Composition: There are scattered areas of fibroglandular density. There are no dominant masses or suspicious calcifications. No other significant abnormalities are identified. There has been no significant change since the prior study. BI/SCRN MAMM (CAD)W/TOOTIE BILAT IMPRESSION: Stable bilateral screening mammogram. Yearly follow-up mammogram recommended. (A) ASSESSMENT CATEGORY: BIRADS Category 1: Negative. A letter regarding these results will be sent to the patient by the facility within 30 days. Approximately 10% of breast cancers are not detected by mammography. A normal mammogram should not delay biopsy of a clinically suspicious abnormality. [id number] Electronically Signed: Augustin Murray MD at 14:12 EDT ,
== END | disposition home or self-care (01) ==
LOC: OPBI 13:15
PROVIDERS: PCP Family Medicine; Visit Provider Family Medicine
DX: Z12.31 Encounter for screening mammogram for malignant neoplasm of breast (principal)
CPT/HCPCS: 77063; 77067

== ENCOUNTER 2022-07-22 08:58 | Outpatient (CLI) | payer MEDICARE, SELFPAY ==
--- NOTE | 2022-07-22 09:03 | ECHOD_ITS ---
Reason For Study: PVC's Procedure This was a 2D Doppler, Color Flow transthoracic echocardiogram. Myocardial strain analysis was performed in this exam to aid in the assessment of cardiac function. Exam performed in department. Left Ventricle Normal LV size. Mild concentric left ventricular hypertrophy. Left ventricular systolic function is lower limits of normal. The estimated ejection fraction is 53 %. No regional wall motion abnormalities noted. Right Ventricle Normal RV size. Normal systolic function. Atria Normal left atrium. Normal right atrium. Mitral Valve Mild diffuse mitral valve thickening. Mild (1+) eccentric mitral valve insufficiency. Tricuspid Valve Normal tricuspid valve. Mild tricuspid valve insufficiency. Pulmonary artery systolic pressure is 28 mmHg. Aortic Valve Trisinus/trileaflet aortic valve. Mild (1+) eccentric aortic valve insufficiency. Pulmonic Valve Normal pulmonic valve. Great Vessels Normal aortic root. The pulmonary artery is normal size. Normal inferior vena cava. Pericardium/Pleural No pericardial effusion. MMode/2D Measurements & Calculations LVIDd: 4.9 cm IVSd: 1.4 cm Ao root diam: 3.3 cm LVIDs: 3.4 cm LVPWd: 1.4 cm RVDd: 3.1 cm FS: 29.4 % LAV(MOD-bp): 60.7 ml LVAd ap4: 27.0 cm2 LVAd ap2: 25.5 cm2 LAV(MOD-bp) Indexed: 34.2 ml/m2 LVLd ap4: 7.1 cm LVLd ap2: 7.1 cm LAV(MOD-sp2): 46.7 ml EDV(MOD-sp4): 91.3 ml EDV(MOD-sp2): 78.4 ml LAV(MOD-sp4): 74.8 ml EDV(sp4-el): 87.3 ml EDV(sp2-el): 78.1 ml LVAs ap4: 19.3 cm2 LVAs ap2: 17.4 cm2 LVLs ap4: 6.6 cm LVLs ap2: 6.3 cm ESV(MOD-sp4): 51.5 ml ESV(MOD-sp2): 43.7 ml ESV(sp4-el): 47.6 ml ESV(sp2-el): 41.0 ml EF(MOD-sp4): 43.6 % EF(MOD-sp2): 44.3 % EF(sp4-el): 45.4 % SV(MOD-sp4): 39.8 ml SV(MOD-sp2): 34.7 ml SV(sp4-el): 39.6 ml LA dimension(2D): 3.2 cm LA A4 area: 22.7 cm2 RA A4 area: 19.0 cm2 Doppler Measurements & Calculations MV E max dominic: 29.5 cm/sec Lat Peak E' Dominic: 2.8 cm/sec Med Peak E' Dominic: 3.4 cm/sec MV A max dominic: 55.9 cm/sec E/E' lat: 10.6 E/E' med: 8.7 MV E/A: 0.53 Ao V2 max: 112.6 cm/sec AI max dominic: 438.8 cm/sec LV V1 max: 91.3 cm/sec Ao max P.1 mmHg AI max P.3 mmHg LV V1 max P.3 mmHg AI dec slope: 211.4 cm/sec2 AI P1/2t: 607.8 msec PA V2 max: 69.8 cm/sec TR max dominic: 244.8 cm/sec TR max P.0 mmHg ECHO/Echo Complete Interpretation Summary Normal LV size. Left ventricular systolic function is lower limits of normal. Mild concentric left ventricular hypertrophy. The estimated ejection fraction is 53 %. Mild tricuspid valve insufficiency. Mild (1+) eccentric aortic valve insufficiency. Mild (1+) eccentric mitral valve insufficiency. Ordering Physician: Daniel Gill Referring Physician: Joe Guzman MD Performed By: Helen Bonilla RDCS
== END 2022-07-22 23:59 | disposition home or self-care (01) ==
PROVIDERS: PCP Family Medicine; Referring Provider Internal Medicine Cardiovascular Disease; Visit Provider Internal Medicine Cardiovascular Disease
DX: I49.3 Ventricular premature depolarization (principal)
CPT/HCPCS: 93306

== ENCOUNTER 2022-07-28 09:42 | Outpatient (CLI) | payer MEDICARE, SELFPAY ==
--- NOTE | 2022-07-28 09:50 | RAD_ITS ---
INDICATION: GERD EXAMINATION/TECHNIQUE: Thick and thin barium oral contrast , barium pill, and gas bubbles were administered to the patient. Total Fluoroscopic Time: 10 seconds AND number of Fluoroscopic Images: 8 COMPARISON: None. FINDINGS: No masses or strictures are identified. Small hiatal hernia. The mucosal pattern is unremarkable. There is normal motility. Mild reflux elicited. RAD/Esophagus Dual Contrast IMPRESSION: Small hiatal hernia and mild gastroesophageal reflux. Electronically Signed: Dez Cobos, at 12:43 EST ,
== END 2022-07-28 23:59 | disposition home or self-care (01) ==
PROVIDERS: PCP Family Medicine; Referring Provider Family Medicine; Visit Provider Family Medicine
DX: K21.9 Gastro-esophageal reflux disease without esophagitis (principal); K44.9 Diaphragmatic hernia without obstruction or gangrene
CPT/HCPCS: 74221

== ENCOUNTER → 2022-12-14 | Outpatient (CLI) | payer MEDICARE, SELFPAY ==
--- NOTE | 2022-12-14 09:11 | BI_ITS ---
MAMMOGRAPHY - BILATERAL DIAGNOSTIC REASON FOR EXAM: Female, 67 years old. Breast Pain PERTINENT HISTORY: Non-contributory. TECHNIQUE: Digital examination. Mediolateral oblique (MLO) and craniocaudad (CC) views of both breasts were obtained, along with 3-D tomosynthesis. CAD: CAD was performed on this study. COMPARISON: 03/09/2022 FINDINGS: Breast Composition: There are scattered areas of fibroglandular density. There are no dominant masses or suspicious calcifications. No other significant abnormalities are identified. However, because the patient complains of lateral right breast pain, ultrasound of the lateral aspect of the right breast is recommended for further evaluation BI/DIAG MAMM W/CAD, BILAT IMPRESSION: Further ultrasonographic evaluation recommended, as described above. Recall Side: Right Breast ASSESSMENT CATEGORY: BIRADS Category 0: Incomplete. Need prior mammogram for comparison. A letter regarding these results will be sent to the patient by the facility within 30 days. FOLLOW UP RECOMMENDATION: Ultrasound Recommended. (I) Approximately 10% of breast cancers are not detected by mammography. A normal mammogram should not delay biopsy of a clinically suspicious abnormality. Electronically Signed: Chao Núñez MD at 10:25 EDT ,
--- NOTE | 2022-12-14 09:11 | US_ITS ---
STUDY: ULTRASOUND BREAST - RIGHT REASON FOR EXAM: Female, 67 years old. Right breast pain TECHNIQUE: Axial and longitudinal images of the RIGHT breast were performed with a high resolution ultrasound transducer. # OF IMAGES: 27 COMPARISON: None. FINDINGS: RIGHT Breast: Focused ultrasound of the lateral aspect of the right breast performed. No suspicious shadowing solid lesion, architectural distortion or clustered shadowing calcifications. Normal fibroglandular tissue noted. US/Breast Limited Unilateral IMPRESSION: No suspicious sonographic findings ASSESSMENT CATEGORY: BIRADS Category 1: Negative. A letter regarding these results will be sent to the patient by the facility within 30 days. Electronically Signed: Chao Núñez MD at 10:29 EDT ,
== END | disposition home or self-care (01) ==
PROVIDERS: PCP Family Medicine; Referring Provider Family Medicine; Visit Provider Family Medicine
DX: N64.4 Mastodynia (principal)
CPT/HCPCS: 76642; 77062; 77066; G0279

== ENCOUNTER 2023-01-12 15:58 | Outpatient (CLI) | payer MEDICARE, SELFPAY ==
[2023-01-12 17:48] LABS: Absolute Lymphocyte Count 2.03 X10^3/uL (0.83-4.51); Absolute Neutrophil Count 2.6 X10^3/uL (2.0-7.7); Basophil# 0.03 X10^3/uL; Basophil% 0.6 % (0-1); Eosinophil# 0.14 X10^3/uL; Eosinophils% 2.7 % (0-5); Hematocrit 36.8 % (37-47); Hemoglobin 12.2 g/dL (12.0-15.0); Lymphocyte # 2.03 X10^3/ul (0.83-4.51); Lymphocyte % 38.4 % (19-41); Mean Corp Hgb Conc 33.2 g/dL (32-36); Mean Corpuscular Hgb 28.7 pg (27.0-32.0); Mean Corpuscular Volume 86.6 fL (81-99); Mean Platelet Vol. 11.3 fl (6.2-12.0); Monocyte# 0.51 X10^3/uL; Monocyte% 9.7 % (0-10); NRBC Flagged by Analyzer 0 % (0-5); Neutrophil # 2.56 X10^3/uL (2.7-7.7); Neutrophil % 48.4 % (47-70); Platelet Count 215 K/mm3 (150-450); RBC Distribution Width CV 12.6 % (11.6-14.6); RBC Distribution Width SD 39.6 fl (35.1-43.9); Red Blood Count 4.25 M/mm3 (4.2-5.4); White Blood Count 5.3 K/mm3 (4.4-11.0)
[2023-01-12 18:15] LABS: Erythrocyte Sedimentation Rate 6 mm/hr (0-30)
[2023-01-12 18:45] LABS: Anion Gap 6 (5-15); BUN 18 mg/dL (7-18); CRP < 2.90 mg/L (0.0-3.0); Calcium,Total 8.7 mg/dL (8.5-10.1); Chloride 108 mmol/L (98-107); Creatinine, Serum 0.69 mg/dL (0.55-1.02); EST Glomerular Filtration Rate 90 mL/min (>60); Est Glom Filt Rate - Afr Amer 108 mL/min (>60); Ferritin 12 ng/mL (8-252); Glucose 135 mg/dL (74-106); Iron 88 ug/dL (50-170); Sodium Level 141 mmol/L (136-145)
[2023-01-12 20:35] LABS: Vitamin B12 > 2000 pg/mL (211-911); Vitamin D,25 Hydroxy 38.8 ng/mL
[2023-01-14 13:08] LABS: ANTINUCLEAR ANTIBODIES DIRECT Negative (Negative)
[2023-01-16 20:07] LABS: Zinc, Plasma or Serum 63 ug/dL (44-115)
== END 2023-01-12 23:59 | disposition home or self-care (01) ==
LOC: MFPLAB 15:59
PROVIDERS: PCP Family Medicine; Visit Provider Family Medicine
DX: M79.10 Myalgia, unspecified site (principal); L65.9 Nonscarring hair loss, unspecified; M85.80 Other specified disorders of bone density and structure, unspecified site
CPT/HCPCS: 36415; 80048; 82306; 82607; 82728; 83540; 84443; 84630; 85025; 85652; 86038; 86140; 86431

== ENCOUNTER → 2023-03-09 | Outpatient (CLI) | payer MEDICARE, SELFPAY ==
--- NOTE | 2023-03-09 10:15 | RAD_ITS ---
EXAM: XR LUMBOSACRAL SPINE COMPLETE WITH FLEXION/EXTENSION, 6 OR MORE VIEWS CLINICAL INDICATION: pain legs TECHNIQUE: Lateral, frontal, oblique and lateral flexion/extension views of the lumbar spine and sacrum. COMPARISON: August 10, 2018 FINDINGS: VERTEBRAE: There is mild decreased height of thoracolumbar bodies with chronic appearance. No obvious fracture or buckled cortex. No evidence of pars defects the bilateral oblique views. Intact SI joints and fairly well seen sacrum. Preservation of the normal lumbar lordosis. No significant facet arthropathy. DISC SPACES: Disc height is fairly well-maintained throughout the lower thoracic and lumbar spine. GASTROINTESTINAL TRACT: Moderate stool in the colon. Included bowel gas pattern is non-obstructive. RAD/L/S Spine w Bend Min 6 Vw IMPRESSION: No acute abnormality identified. Minimal decreased height of lower thoracic bodies without evidence of obvious acute fracture. Well-maintained disc spaces and usual lordotic curvature. Electronically Signed: Alexia Murray MD at 6:13 EDT ,
--- NOTE | 2023-03-09 10:15 | RAD_ITS ---
INDICATION: pain right side hip/leg pain EXAMINATION/TECHNIQUE: X-RAY - XR Hip Unilateral with Pelvis when performed; 2-3 Views COMPARISON: FINDINGS: No fracture demonstrated. Mild joint space narrowing with subchondral sclerosis and osteophytes at both hips, symmetric. The femoral heads are normal in contour. No dislocation at the hips. Sacroiliac joints are symmetric. RAD/HIP, UNI W/ Pelvis 2-3 Views IMPRESSION: No evidence of fracture. Mild degenerative changes of the hips. Electronically Signed: Bridgett Sarabia MD at 18:33 EDT ,
== END | disposition home or self-care (01) ==
LOC: MTRAD 10:14
PROVIDERS: PCP Family Medicine; Referring Provider Family Medicine; Visit Provider Family Medicine
DX: M79.606 Pain in leg, unspecified (principal)
CPT/HCPCS: 72114; 73502

== ENCOUNTER → 2023-03-10 | Outpatient (CLI) | payer MEDICARE, SELFPAY ==
[2023-03-10 12:50] LABS: Vitamin D,25 Hydroxy 31.8 ng/mL
[2023-03-10 13:06] LABS: AST(SGOT) 48 U/L (15-37); Alanine Aminotransfer ALT/SGPT 40 U/L (13-56); Albumin, Serum 3.5 g/dL (3.2-5.0); Alkaline Phosphatase 99 U/L (45-117); Anion Gap 8 (5-15); BUN 15 mg/dL (7-18); BUN/Creat Ratio 20.2 RATIO (10-20); Calcium,Total 8.9 mg/dL (8.5-10.1); Chloride 107 mmol/L (98-107); Cholesterol 177 mg/dL (200); Creatinine, Serum 0.74 mg/dL (0.55-1.02); EST Glomerular Filtration Rate 83 mL/min (>60); Est Glom Filt Rate - Afr Amer 100 mL/min (>60); Globulin 3.5 g/dL (2.2-4.2); Glucose 98 mg/dL (74-106); High Density Lipoprotein 43 mg/dL; Potassium 3.6 mmol/L (3.5-5.1); Sodium Level 142 mmol/L (136-145); Thyroid Stim Hormone (TSH) 2.13 uIU/mL (0.358-3.74); Triglycerides 182 mg/dL; Very Low Density Lipoprotein 36 mg/dL (5-40)
[2023-03-10 14:48] LABS: Microalbumin,Random Urine 12.2 mg/L (NO RANGE EST.)
== END | disposition home or self-care (01) ==
LOC: MTLAB 09:40
PROVIDERS: PCP Family Medicine; Referring Provider Family Medicine; Visit Provider Family Medicine
DX: Z00.00 Encounter for general adult medical examination without abnormal findings (principal); E78.5 Hyperlipidemia, unspecified; M85.80 Other specified disorders of bone density and structure, unspecified site; E87.6 Hypokalemia
CPT/HCPCS: 36415; 80053; 80061; 82043; 82306; 84443

== ENCOUNTER 2023-03-24 09:20 | Outpatient (CLI) | payer MEDICARE, SELFPAY ==
--- NOTE | 2023-03-24 09:29 | BD_ITS ---
STUDY: DUAL ENERGY X-RAY ABSORPTIOMETRY / DXA REASON FOR EXAM: Female, 67 years old. [id number] TECHNIQUE: Bone Mineral Density (BMD) measurements of lumbar spine and bilateral hips were obtained. COMPARISON: Comparison is made with prior study dated February 25, 2021. FINDINGS: Lumbar Spine (L1-L4): g/cm2 (0.835) / T-score (-1.9) / Z-score (0.0) Findings are suggestive of osteopenia with a moderate fracture risk. Left Femur Total: g/cm2 (0.729) / T-score (-1.7) / Z-score (-0.4) Left Femoral Neck: g/cm2 (0.611) / T-score (-2.1) / Z-score (-0.5) Right Femur Total: g/cm2 (0.712) / T-score (-1.9) / Z-score (-0.5) Right Femoral Neck: g/cm2 (0.605) / T-score (-2.2) / Z-score (-0.5) The T-Scores on the most recent prior examination were: Lumbar Spine (L1-L4): There has been worsening of bone density since the previous examination. Left Femur Total: which represents an improvement of 9.8%. Right Femur Total: which represents an improvement of 6.8%. BD/Dexa Bone Density Study IMPRESSION: The patient is considered osteopenic as outlined below according to World Ramsey Organization (WHO) criteria with a high fracture risk. There has been improvement of bone density since the previous examination. Reference Information: The T-score is the number of standard deviations above or below the standard which is normal for young adults at their peak bone mineral density. The World Health Organization (WHO) interprets the T-scores as follows: Above -1 Normal bone density Between -1 and -2.5 Osteopenia Equal to / or below -2.5 Osteoporosis As a practical clinical guideline, osteopenia may be graded as follows: Mild -1 through -1.5 Moderate -1.6 through -2.0 Severe -2.1 through -2.4 The Z-score is the number of standard deviations above or below age-matched controls. A Z-score of less than -1.5 would be considered abnormal. References: 1. NIH Osteoporosis and Related Bone Diseases www osteo.org 2. International Society for Clinical Densitometry www iscd.org 3. National Osteoporosis Foundation www nof.org Electronically Signed: Augustin Murray MD at 10:20 EDT ,
== END 2023-03-24 23:59 | disposition home or self-care (01) ==
LOC: OPBD 09:21
PROVIDERS: PCP Family Medicine; Referring Provider Family Medicine; Visit Provider Family Medicine
DX: Z00.00 Encounter for general adult medical examination without abnormal findings (principal); Z78.0 Asymptomatic menopausal state
CPT/HCPCS: 77080

== ENCOUNTER → 2023-06-10 | Outpatient (CLI) | payer MEDICARE, SELFPAY | END | disposition home or self-care (01) | LOC: LABSPEC 11:03 | PROVIDERS: PCP Family Medicine; Visit Provider Family Medicine | DX: R30.0 Dysuria (principal) | CPT/HCPCS: 87086; 87088; 87186 ==

== ENCOUNTER 2023-10-12 12:10 | Emergency (ER) | payer MEDICARE, SELFPAY ==
[2023-10-12 12:11] VITALS: BP 162/99; PULSE 67; RESP 16; TEMP 36.6; O2SAT 98; BMI 23.6
[2023-10-12 13:10] LABS: Absolute Lymphocyte Count 3.75 X10^3/uL (0.83-4.51); Absolute Neutrophil Count 5.3 X10^3/uL (2.0-7.7); Basophil# 0.03 X10^3/uL; Basophil% 0.3 % (0-1); Eosinophil# 0.17 X10^3/uL; Eosinophils% 1.7 % (0-5); Hematocrit 37.5 % (37-47); Hemoglobin 12.6 g/dL (12.0-15.0); Lymphocyte # 3.75 X10^3/ul (0.83-4.51); Lymphocyte % 37.1 % (19-41); Mean Corp Hgb Conc 33.6 g/dL (32-36); Mean Corpuscular Hgb 27.8 pg (27.0-32.0); Mean Corpuscular Volume 82.6 fL (81-99); Mean Platelet Vol. 10.9 fl (6.2-12.0); Monocyte# 0.83 X10^3/uL; Monocyte% 8.2 % (0-10); NRBC Flagged by Analyzer 0 % (0-5); Neutrophil % 52.3 % (47-70); Platelet Count 234 K/mm3 (150-450); RBC Distribution Width CV 13.6 % (11.6-14.6); RBC Distribution Width SD 40.6 fl (35.1-43.9); Red Blood Count 4.54 M/mm3 (4.2-5.4); White Blood Count 10.1 K/mm3 (4.4-11.0)
[2023-10-12] MEDS: Ipratropium/Albuterol Sulfate 3 ML AMPUL.NEB INHALATION (13:14)
[2023-10-12 13:23] LABS: D-Dimer Quantitative (DVT/PE) 0.49 FEU/ug/m (0.27-0.49)
[2023-10-12 13:24] VITALS: BP 114/70; PULSE 58; RESP 24; O2SAT 98
--- NOTE | 2023-10-12 13:25 | EX.ED.DYSGE1 ---
HPI History of Present Illness Chief Complaint: Weakness Informant: patient Narrative Narrative: Patient complains of bronchitis going on for the last 5 weeks. Patient started with some coughing and symptoms right after New Year's. It sounds like she was treated with azithromycin. She then followed up and saw her primary physician. This was after about 2 weeks. He now has put her on Augmentin. He also put her on 5 days of prednisone although we do not know the dose. She just finished that yesterday. She states she is still wheezing. Sometimes she feels like her heart is racing although she does have a history of PVCs and dysrhythmia but never A-fib. She sometimes feels mildly faint. She sometimes feel little short of breath. She states she does have a lot of wheezing and has never had wheezing before. She has never been a smoker. No asthma or COPD history. It sounds like she is on carvedilol because of a history of cardiac output about 45% but this evidently came back up to 55% with treatment and she has had no issues and never had CHF. [facility] Medical History Essential (primary) hypertension Hyperlipidemia Non-ischemic cardiomyopathy Premature ventricular contractions Home Medications omega-3 fatty acids-fish oil 435 mg-880 mg capsule 1 ea PO DAILY 08/23/13 [History Last Taken 09/06/13 08:00] pravastatin 20 mg tablet 20 mg PO QHS 04/28/17 [History Last Taken Unknown] biotin 5,000 mcg sublingual tablet 5,000 mcg sublingual DAILY 05/22/19 [History Last Taken Unknown] cholestyramine (with sugar) 4 gram powder for susp in a packet 1 ea PO DAILY 07/04/20 [History Last Taken Unknown] pantoprazole 40 mg tablet,delayed release 40 mg PO DAILY 07/04/20 [History Last Taken Unknown] calcium carbonate 600 mg-vitamin D3 12.5 mcg (500 unit) capsule (Calcium 600 with Vitamin D3) 1 cap PO DAILY 12/20/20 [History Last Taken Unknown] carvedilol 12.5 mg tablet See Rx Instructions .Route .COMPLEX #180 tabs 05/25/23 [Rx Last Taken Unknown] losartan 100 mg tablet 50 mg PO DAILY 07/12/23 [History Last Taken Unknown] sertraline 50 mg tablet 50 mg PO DAILY #90 tabs 07/12/23 [History Last Taken Unknown] albuterol sulfate 90 mcg/actuation aerosol inhaler 2 puff inhalation Q6H PRN shortness of breath or wheezing 10/12/23 [History Last Taken Unknown] amoxicillin 875 mg-potassium clavulanate 125 mg tablet 1 tab PO Q12H 10/12/23 [History Last Taken Unknown] ipratropium bromide 17 mcg/actuation HFA aerosol inhaler 2 puff inhalation Q8H PRN shortness of breath or wheezing #12.9 grams 10/12/23 [Rx Last Taken Unknown] Allergy/AdvReac Type Severity Reaction Status Date / Time lisinopril AdvReac cough Verified 10/12/23 12:12 metoclopramide HCl AdvReac Other Verified 10/12/23 12:12 [From [facility]] Family History Father Heart disease Grandmother Heart disease Brother Myocardial infarction Uncle Myocardial infarction Surgical History H/O arthroscopy of right knee History of bilateral breast reduction surgery History of cholecystectomy History of common bile duct surgery History of hysterectomy History of left heart catheterization (06/27/06) History of right knee joint replacement Social History (Updated 10/12/23 @ 13:26 by Jody Phipps) household members: spouse housing: house Smoking Status: Never smoker alcohol intake: current alcohol intake frequency: a few times a month ROS ROS ED ROS Narrative A complete review of systems was performed and is negative except as documented in the history of present illness. Some specific details below. Constitutional: No recent fevers or chills. No muscle aches. EYE: No discharge, visual complaints, or pain. ENT: No difficulty swallowing. No swelling. No pain. No reflux symptoms. CV: See history of present illness. Respiratory: See history of present illness. GI: No abdominal pain. No nausea vomiting diarrhea. No blood in stool. : No frequency dysuria or hematuria. Musculoskeletal: No recent trauma. No pains. No swelling. She has no leg symptoms but did have a DVT in her right leg about 30 years ago. Skin: No rash. Nondiaphoretic. Neuro: No weakness or numbness. Endocrine: No polyuria or polydipsia. EXAM Physical Exam Narrative Exam Narrative: CONSTITUTIONAL: Patient is nontoxic in appearance. The patient looks comfortable. Work of breathing looks normal. HEENT: No notable trauma. Mucous membranes moist. No sinus tenderness. EYES: No conjunctival injection. No pallor. NECK:No JVD. No stridor. CARDIOVASCULAR: Regular rate. Regular rhythm. No notable murmur. No JVD. RESPIRATORY: No respiratory distress. Breathing is unlabored. But the patient does have significant expiratory wheezing. No rhonchi. She has a dry cough. GASTROINTESTINAL: Not distended. Bowel sounds are normal. No tenderness. No guarding. No rebound. No palpable mass. No bruit is heard. GENITOURINARY: No tenderness over the bladder. No CVA tenderness. MUSCULOSKELETAL: Atraumatic. No peripheral edema. No cord. No tenderness along the deep venous system. No asymmetry. No distended veins. Even her right leg that had DVT is thin and normal. NEUROLOGICAL: Patient is alert and appropriate. No focal deficit noted. SKIN: No noted rashes. No diaphoresis. PSYCHIATRIC: Patient is calm. Mood is appropriate. Const Vital Signs: 10/12/23 12:11 10/12/23 13:24 10/12/23 13:24 Temperature 98 F Temperature Source Temporal Pulse Rate 67 58 L Respiratory Rate 16 24 H Respiratory Effort Respiratory Pattern Blood Pressure 162/99 H 114/70 Blood Pressure Mean 120 84 Pulse Ox 98 98 98 Oxygen Delivery Method Room Air Room Air Room Air 10/12/23 13:28 10/12/23 13:26 10/12/23 14:11 Temperature Temperature Source Pulse Rate 63 58 L Respiratory Rate 18 14 Respiratory Effort Normal Respiratory Pattern Normal Normal Blood Pressure 121/83 H Blood Pressure Mean 95 Pulse Ox 94 Oxygen Delivery Method Room Air MDM MDM MDM Narrative Medical decision making narrative: Patient CBC is normal. Patient's electrolytes look good other than mild bump of her creatinine to 1.1 and slightly low potassium at 2.7. This was replaced orally and diet should correct this. Her troponin is negative at 11. Her BNP is mildly up. But she has no rales. She is not hypoxic. Her two-view chest x-ray to interpreted by me shows no acute process and final reading is negative also. We walked the patient after breathing treatment. She started at 94% on room air and went up to 97% on room room air and felt good. I listen to her lungs now and she is not wheezing. She has only used her albuterol once last night and once today. She did great with the Atrovent so I will write for this. I will also get her a spacer so that her meds worked better. I do not think she needs any further steroids or antibiotics at this time. I do recommend follow-up. She feels very good now and would like to go home. Lab Data Labs: Laboratory Results - last 24 hr 10/12/23 12:58 WBC 10.1 RBC 4.54 Hgb 12.6 Hct 37.5 MCV 82.6 MCH 27.8 MCHC 33.6 RDW Std Deviation 40.6 RDW Coeff of Stiven 13.6 Plt Count 234 MPV 10.9 Immature Gran % (Auto) 0.400 Neut % (Auto) 52.3 Lymph % (Auto) 37.1 [place] % (Auto) 8.2 Eos % (Auto) 1.7 Baso % (Auto) 0.3 Absolute Neuts (auto) 5.3 Absolute Lymphs (auto) 3.75 Nucleated RBC % 0 D-Dimer Quant (PE/DVT) 0.49 Sodium 136 Potassium 2.7 L* Chloride 101 Carbon Dioxide 29.0 Anion Gap 6 BUN 27 H Creatinine 1.10 H Estim Creat Clear Calc 45.82 Est GFR (MDRD) Af Amer 63 Est GFR (MDRD) Non-Af 52 L BUN/Creatinine Ratio 24.5 H Glucose 96 Calcium 9.4 Troponin I High Sens 11 B-Natriuretic Peptide 275.3 H Radiography Diagnostic Testing: Clinical Impression(s) from Imaging Studies Chest X-Ray 10/12/23 14:16 IMPRESSION: No acute abnormality is present. Electronically Signed: Augustin Murray MD at 14:35 EST , Discharge Plan Triage Chief Complaint: Weakness ED Provider: Duong Angulo Dx/Rx/DC Orders Clinical Impression: Acute bronchospasm, Bronchitis, Hypokalemia Instructions: ED Bronchospasm (Adult) Prescriptions: New ipratropium bromide 17 mcg/actuation HFA aerosol inhaler 2 puff inhalation Q8H PRN (Reason: shortness of breath or wheezing) Qty: 12.9 0RF No Action biotin 5,000 mcg tablet, sublingual 5,000 mcg SUBLINGUAL DAILY sertraline 50 mg tablet 50 mg PO DAILY Qty: 90 pantoprazole 40 mg tablet,delayed release (DR/EC) 40 mg PO DAILY Patient Comments: TAKE 1 TABLET BY MOUTH EVERY DAY cholestyramine (with sugar) 4 gram powder in packet 1 ea PO DAILY calcium carbonate-vitamin D3 [Calcium 600 with Vitamin D3] 600 mg(1,500mg) -500 unit capsule 1 cap PO DAILY losartan 100 mg tablet 50 mg PO DAILY omega-3 fatty acids-fish oil 1 EACH capsule 1 ea PO DAILY Patient Comments: SUPPLEMENT pravastatin 20 MG tablet 20 mg PO QHS albuterol sulfate 90 mcg/actuation HFA aerosol inhaler 2 puff INHALATION Q6H PRN (Reason: shortness of breath or wheezing) amoxicillin-pot clavulanate 875-125 mg tablet 1 tab PO Q12H carvedilol 12.5 mg tablet See Rx Instructions .ROUTE .COMPLEX Qty: 180 3RF Dose Instruction: TAKE 1 TABLET TWICE A DAY Rx Instructions: TAKE 1 TABLET TWICE A DAY Primary Care Provider: Reginald Guzman Referrals: Reginald Guzman MD [Primary Care Provider] - 3-5 Days if not improving Disposition Disposition: Home, Self Care
[2023-10-12 13:26] VITALS: PULSE 63; RESP 18
[2023-10-12 13:31] LABS: BNP,B-Type NATRIURETIC PEPTIDE 275.3 pg/mL (0-100)
[2023-10-12 13:50] LABS: Anion Gap 6 (5-15); BUN 27 mg/dL (7-18); BUN/Creat Ratio 24.5 RATIO (10-20); Calcium,Total 9.4 mg/dL (8.5-10.1); Chloride 101 mmol/L (98-107); EST Glomerular Filtration Rate 52 mL/min (>60); Est Glom Filt Rate - Afr Amer 63 mL/min (>60); Estimated Creatinine Clearance 45.82 ml/min; Glucose 96 mg/dL (74-106); Potassium 2.7 mmol/L (3.5-5.1); Sodium Level 136 mmol/L (136-145); Troponin-I HS 11 pg/mL (3.0-54.0)
[2023-10-12] MEDS: Potassium Chloride Oral Tablet 20 MEQ 40 MEQ PO (14:10)
[2023-10-12 14:11] VITALS: BP 121/83; PULSE 58; RESP 14; O2SAT 94
[2023-10-12 14:15] VITALS: O2SAT 94
--- NOTE | 2023-10-12 14:16 | RAD_ITS ---
STUDY: X-RAY CHEST REASON FOR EXAM: Female, 68 years old. Weakness and shortness of breath. TECHNIQUE: PA and lateral views of the chest. COMPARISON: None. FINDINGS: Scattered calcified granulomas. No acute infiltrate is seen. There is no demonstrated pleural abnormality. There is mild cardiac enlargement. Normal mediastinum and tej. Normal visualized pulmonary arteries. There is atherosclerotic tortuosity of the aortic arch and descending thoracic aorta. Normal visualized thoracic spine. Normal visualized ribs, clavicles, and shoulders. There is no demonstrated abnormality of the visualized soft tissue structures of the upper abdomen. RAD/Chest PA and Lateral IMPRESSION: No acute abnormality is present. Electronically Signed: Augustin Murray MD at 14:35 EST ,
[2023-10-12] MEDS: INHALER, ASSIST DEVICES 1 EACH SPACER INHALATION (15:27)
[2023-10-12 15:28] VITALS: PULSE 68; RESP 12; O2SAT 97
== END 2023-10-12 15:29 | disposition home or self-care (01) ==
PROVIDERS: Emergency Provider Emergency Medicine; PCP Family Medicine; Visit Provider Emergency Medicine
DX: R53.1 Weakness (principal); E87.6 Hypokalemia; J40 Bronchitis, not specified as acute or chronic; J98.01 Acute bronchospasm; I10 Essential (primary) hypertension; E78.5 Hyperlipidemia, unspecified; Z79.899 Other long term (current) drug therapy; Z90.49 Acquired absence of other specified parts of digestive tract; Z90.710 Acquired absence of both cervix and uterus; Z96.651 Presence of right artificial knee joint; R06.2 Wheezing
CPT/HCPCS: 71046; 80048; 83880; 84484; 85025; 85379; 93005; 99284; A4216

== ENCOUNTER 2024-01-18 07:08 | Outpatient (CLI) | payer MEDICARE, SELFPAY ==
[2024-01-18 10:17] LABS: Hematocrit 39.6 % (37-47); Hemoglobin 12.5 g/dL (12.0-15.0); Mean Corp Hgb Conc 31.6 g/dL (32-36); Mean Corpuscular Hgb 27.4 pg (27.0-32.0); Mean Corpuscular Volume 86.8 fL (81-99); Mean Platelet Vol. 10.8 fl (6.2-12.0); Platelet Count 214 K/mm3 (150-450); RBC Distribution Width CV 13.8 % (11.6-14.6); RBC Distribution Width SD 43.1 fl (35.1-43.9); Red Blood Count 4.56 M/mm3 (4.2-5.4); White Blood Count 9.6 K/mm3 (4.4-11.0)
[2024-01-18 10:52] LABS: AST(SGOT) 16 U/L (15-37); Alanine Aminotransfer ALT/SGPT 21 U/L (13-56); Albumin, Serum 3.3 g/dL (3.2-5.0); Alkaline Phosphatase 61 U/L (45-117); Anion Gap 4 (5-15); BUN 23 mg/dL (7-18); BUN/Creat Ratio 35.3 RATIO (10-20); Calcium,Total 8.6 mg/dL (8.5-10.1); Chloride 106 mmol/L (98-107); Creatinine, Serum 0.65 mg/dL (0.55-1.02); EST Glomerular Filtration Rate 96 mL/min (>60); Est Glom Filt Rate - Afr Amer 116 mL/min (>60); Globulin 3.2 g/dL (2.2-4.2); Glucose 94 mg/dL (74-106); Potassium 3.7 mmol/L (3.5-5.1); Protein, Total 6.5 g/dL (6.4-8.2); Sodium Level 140 mmol/L (136-145); Thyroid Stim Hormone (TSH) 2.66 uIU/mL (0.358-3.74)
[2024-01-18 12:15] LABS: Hemoglobin A1c 5.9 % (3.8-5.6)
== END 2024-01-18 23:59 | disposition home or self-care (01) ==
PROVIDERS: PCP Family Medicine; Referring Provider Nurse Practitioner Family; Visit Provider Nurse Practitioner Family
DX: R42 Dizziness and giddiness (principal); E87.6 Hypokalemia; E78.5 Hyperlipidemia, unspecified; Z79.899 Other long term (current) drug therapy
CPT/HCPCS: 36415; 80053; 83036; 84443; 85027

== ENCOUNTER 2024-04-26 17:56 | Emergency (ER) | payer MEDICARE, SELFPAY ==
[2024-04-26 17:56] VITALS: BP 180/105; PULSE 93; RESP 20; TEMP 36.2; O2SAT 98; BMI 24.2
[2024-04-26 19:30] LABS: Absolute Lymphocyte Count 1.76 X10^3/uL (0.83-4.51); Basophil# 0.02 X10^3/uL; Basophil% 0.2 % (0-1); Eosinophil# 0.13 X10^3/uL; Eosinophils% 1.1 % (0-5); Hematocrit 39.6 % (37-47); Lymphocyte # 1.76 X10^3/ul (0.83-4.51); Lymphocyte % 14.9 % (19-41); Mean Corp Hgb Conc 32.8 g/dL (32-36); Mean Corpuscular Hgb 28.4 pg (27.0-32.0); Mean Corpuscular Volume 86.7 fL (81-99); Mean Platelet Vol. 10.3 fl (6.2-12.0); Monocyte# 0.94 X10^3/uL; Monocyte% 7.9 % (0-10); NRBC Flagged by Analyzer 0 % (0-5); Neutrophil # 8.96 X10^3/uL (2.7-7.7); Neutrophil % 75.6 % (47-70); Platelet Count 272 K/mm3 (150-450); RBC Distribution Width SD 40.9 fl (35.1-43.9); Red Blood Count 4.57 M/mm3 (4.2-5.4); White Blood Count 11.8 K/mm3 (4.4-11.0)
[2024-04-26 19:44] LABS: ALB/GLOB Ratio 0.9 RATIO (0.9-2.4); AST(SGOT) 23 U/L (15-37); Alanine Aminotransfer ALT/SGPT 79 U/L (13-56); Albumin, Serum 3.4 g/dL (3.2-5.0); Alkaline Phosphatase 153 U/L (45-117); Anion Gap 7 (5-15); BUN 10 mg/dL (7-18); BUN/Creat Ratio 14.3 RATIO (10-20); Calcium,Total 8.9 mg/dL (8.5-10.1); Chloride 104 mmol/L (98-107); EST Glomerular Filtration Rate 89 mL/min (>60); Est Glom Filt Rate - Afr Amer 107 mL/min (>60); Estimated Creatinine Clearance 62.13 ml/min; Globulin 3.8 g/dL (2.2-4.2); Glucose 111 mg/dL (74-106); Potassium 3.4 mmol/L (3.5-5.1); Protein, Total 7.2 g/dL (6.4-8.2); Sodium Level 139 mmol/L (136-145)
[2024-04-26 19:54] VITALS: BP 148/88; PULSE 72; RESP 16; O2SAT 97
--- NOTE | 2024-04-26 20:17 | EDS_ITS ---
HPI History of Present Illness Chief Complaint: General Illness Informant: patient Onset/Context/Timing Onset: Yesterday Context: Gradual Onset Timing: Continuous Quality: Stabbing, cramping Location: Lower abdomen Worsened by: Nothing Relieved by: Nothing Narrative Narrative: Patient presents with abdominal pain, back pain, and nausea that began yesterday. Patient states it is gradually gotten worse. Patient states her pain is constant. Patient states her pain is mainly over her lower abdomen. Patient states it radiates into her lower back. Patient states nothing makes it better and nothing makes it worse. Patient admits to some subjective chills and low-grade fever at home. Patient admits to some nausea but denies any vomiting. Patient denies any urinary complaints. [facility] Medical History Premature ventricular contractions Non-ischemic cardiomyopathy Essential (primary) hypertension Hyperlipidemia Home Medications ?Medication ?Instructions ?Recorded ?Last Taken ?Type omega-3 fatty acids-fish oil 435 1 ea PO DAILY 08/23/13 09/06/13 08:00 History mg-880 mg capsule pravastatin 20 mg tablet 20 mg PO QHS 04/28/17 Unknown History biotin 5,000 mcg sublingual tablet 5,000 mcg sublingual DAILY 05/22/19 Unknown History cholestyramine (with sugar) 4 gram 1 ea PO DAILY 07/04/20 Unknown History powder for susp in a packet pantoprazole 40 mg tablet,delayed 40 mg PO DAILY 07/04/20 Unknown History release calcium carbonate 600 mg-vitamin 1 cap PO DAILY 12/20/20 Unknown History D3 12.5 mcg (500 unit) capsule (Calcium 600 with Vitamin D3) losartan 100 mg tablet 50 mg PO DAILY 07/12/23 Unknown History sertraline 50 mg tablet 50 mg PO DAILY #90 tabs 07/12/23 Unknown History albuterol sulfate 90 mcg/actuation 2 puff inhalation Q6H PRN 10/12/23 Unknown History aerosol inhaler shortness of breath or wheezing amoxicillin 875 mg-potassium 1 tab PO Q12H 10/12/23 Unknown History clavulanate 125 mg tablet ipratropium bromide 17 2 puff inhalation Q8H PRN 10/12/23 Unknown Rx mcg/actuation HFA aerosol inhaler shortness of breath or wheezing #12.9 grams carvedilol 12.5 mg tablet See Rx Instructions .Route 03/21/24 Unknown Rx .COMPLEX #180 tabs ciprofloxacin HCl 500 mg tablet 500 mg PO BID #20 TABLETS 04/27/24 Unknown Rx hydrocodone-acetaminophen 5-325mg 1 tab PO Q6H PRN PRN Pain 3 days 04/27/24 Unknown Rx 5mg-325mg #10 TABLETS metronidazole 500 mg tablet 500 mg PO Q6H #40 tabs 04/27/24 Unknown Rx Allergy/AdvReac Type Severity Reaction Status Date / Time lisinopril AdvReac cough Verified 04/26/24 17:56 metoclopramide HCl (From AdvReac Other Verified 04/26/24 17:56 Reglan) Family History Father Heart disease Grandmother Heart disease Brother Myocardial infarction Uncle Myocardial infarction Surgical History History of bilateral breast reduction surgery History of hysterectomy History of common bile duct surgery History of cholecystectomy History of left heart catheterization (06/27/06) History of right knee joint replacement H/O arthroscopy of right knee Social History household members: spouse housing: house Smoking Status: Never smoker alcohol intake: current alcohol intake frequency: a few times a month ROS ROS ED Constitutional Constitutional ED: Reports chills, fever(s) and subjective Eyes Eyes: Denies blurry vision or change in vision ENT ENT ED: Denies rhinorrhea or sore throat Cardiovascular Cardiovascular: Denies chest pain or palpitations Respiratory/Chest Respiratory/Chest: Denies cough or dyspnea Gastrointestinal Gastrointestinal: Reports abdominal pain and nausea; Denies vomiting Genitourinary Genitourinary ED: Denies dysuria or hematuria Musculoskeletal Musculoskeletal: Reports back pain; Denies neck pain Integumentary Denies abscess or rash Neurologic Neurologic: Denies headache(s) or weakness Allergic/Immunologic Allergic/Immunologic ED: Denies mouth swelling or urticaria EXAM Physical Exam Const Vital Signs: 04/26/24 17:56 04/26/24 19:28 04/26/24 19:54 Temperature 97.2 F L Temperature Source Temporal Pulse Rate 93 72 Respiratory Rate 20 H 16 Respiratory Effort Normal Respiratory Pattern Normal Blood Pressure 180/105 H 148/88 H Blood Pressure Mean 130 108 Pulse Ox 98 97 Oxygen Delivery Method Room Air Room Air 04/26/24 21:00 04/26/24 22:59 04/27/24 00:00 Temperature Temperature Source Pulse Rate 71 92 74 Respiratory Rate 16 18 18 Respiratory Effort Respiratory Pattern Blood Pressure 152/88 H 146/85 H 118/93 H Blood Pressure Mean 109 105 101 Pulse Ox 93 94 95 Oxygen Delivery Method Room Air Room Air Room Air 04/27/24 00:13 Temperature 97.9 F Temperature Source Pulse Rate 74 Respiratory Rate 18 Respiratory Effort Respiratory Pattern Blood Pressure 118/93 H Blood Pressure Mean 101 Pulse Ox 95 Oxygen Delivery Method Positive well nourished and well developed General Appearance ED: well developed and NAD HEENT Reports moist mucous membranes Neck supple and no JVD Resp normal respiratory effort and clear to auscultation bilaterally Cardio regular rate and regular rhythm GI non-distended Palpation: soft and tender LLQ, RLQ and suprapubic; Negative for guarding or rebound tenderness present Extremity General Extremety ED: Negative for edema or tenderness General Extremity: Negative for edema Neuro oriented x3, CN's II-XII intact bilaterally and no sensory deficits noted Sensorium / Orientation: alert Motor Exam: strength 5/5 throughout Psych mental status grossly normal MDM MDM MDM Narrative Medical decision making narrative: Differential diagnosis includes urinary tract infection, bowel obstruction, perforation, colitis, diverticulitis, viral illness, and gastroenteritis. CBC will be obtained to assess for leukocytosis and anemia. Comprehensive metabolic profile will be obtained to assess for hepatic function, renal function, and electrolyte abnormality. Urinalysis will be obtained to assess for urinary tract infection and hematuria. CT scan of the abdomen pelvis will be obtained to assess for bowel obstruction, perforation, colitis, and diverticulitis. Lab Data Attestation: I reviewed the patient's lab results. Lab results narrative: CBC was reviewed. There is a mild leukocytosis of 11.8. The remainder was within normal limits. Comprehensive metabolic profile was reviewed. There is mildly elevated alkaline phosphatase of 153 and ALT was mildly elevated at 79. The remainder is within normal limits. Labs: Laboratory Results - last 24 hr 04/26/24 04/26/24 19:20 20:35 WBC 11.8 H RBC 4.57 Hgb 13.0 Hct 39.6 MCV 86.7 MCH 28.4 MCHC 32.8 RDW Std Deviation 40.9 RDW Coeff of Stiven 13.0 Plt Count 272 MPV 10.3 Immature Gran % (Auto) 0.300 Neut % (Auto) 75.6 H Lymph % (Auto) 14.9 L Real % (Auto) 7.9 Eos % (Auto) 1.1 Baso % (Auto) 0.2 Absolute Neuts (auto) 9.0 H Absolute Lymphs (auto) 1.76 Nucleated RBC % 0 Sodium 139 Potassium 3.4 L Chloride 104 Carbon Dioxide 28.0 Anion Gap 7 BUN 10 Creatinine 0.70 Estim Creat Clear Calc 62.13 Est GFR (MDRD) Af Amer 107 Est GFR (MDRD) Non-Af 89 BUN/Creatinine Ratio 14.3 Glucose 111 H Calcium 8.9 Total Bilirubin 0.70 AST 23 ALT 79 H Alkaline Phosphatase 153 H Total Protein 7.2 Albumin 3.4 Globulin 3.8 Albumin/Globulin Ratio 0.9 Urine Color Yellow Urine Clarity Clear Urine pH 7.0 Ur Specific [place] 1.010 Urine Protein Negative Urine Glucose (UA) Normal Urine Ketones Negative Urine Occult Blood Negative Urine Nitrite Negative Urine Bilirubin Negative Urine Urobilinogen Normal Ur Leukocyte Esterase Negative Urine RBC 0 SEEN Urine WBC 0 SEEN Ur Squamous Epith Cells 0 SEEN Urine Bacteria 0 SEEN Urine Mucus 0 SEEN Radiography Diagnostic Testing: CT scan of the abdomen pelvis was obtained. There are findings consistent with diverticulitis of the sigmoid colon. There is no perforation or abscess. This was interpreted by the radiologist and was also independently reviewed by myself. Treatment and Re-Evaluation :: Patient was given IV fluids, Zofran, and Bentyl. Patient was given a dose of morphine. Patient was advised of her findings. Patient is feeling better on reevaluation. Patient was given a prescription for Cipro and Flagyl. Patient was given a prescription for a short course of [place]. Patient was instructed to avoid alcohol while taking Flagyl. Patient was instructed to follow-up with her primary care physician in 5 to 7 days. Patient understood and was agreeable with the plan. All questions were answered. Discharge Plan Triage Chief Complaint: General Illness ED Provider: Han Mills Dx/Rx/DC Orders Clinical Impression: Diverticulitis, Essential (primary) hypertension Instructions: ED Diverticulitis Prescriptions: New hydrocodone-acetaminophen 5-325 mg tablet 1 tab PO Q6H PRN PRN (Reason: Pain) 3 Days Qty: 10 0RF ciprofloxacin HCl 500 mg tablet 500 mg PO BID Qty: 20 0RF metronidazole 500 mg tablet 500 mg PO Q6H Qty: 40 0RF No Action biotin 5,000 mcg tablet, sublingual 5,000 mcg SUBLINGUAL DAILY sertraline 50 mg tablet 50 mg PO DAILY Qty: 90 pantoprazole 40 mg tablet,delayed release (DR/EC) 40 mg PO DAILY Patient Comments: TAKE 1 TABLET BY MOUTH EVERY DAY cholestyramine (with sugar) 4 gram powder in packet 1 ea PO DAILY calcium carbonate-vitamin D3 [Calcium 600 with Vitamin D3] 600 mg(1,500mg) - 500 unit capsule 1 cap PO DAILY losartan 100 mg tablet 50 mg PO DAILY omega-3 fatty acids-fish oil 1 EACH capsule 1 ea PO DAILY Patient Comments: SUPPLEMENT pravastatin 20 MG tablet 20 mg PO QHS albuterol sulfate 90 mcg/actuation HFA aerosol inhaler 2 puff INHALATION Q6H PRN (Reason: shortness of breath or wheezing) amoxicillin-pot clavulanate 875-125 mg tablet 1 tab PO Q12H ipratropium bromide 17 mcg/actuation HFA aerosol inhaler 2 puff inhalation Q8H PRN (Reason: shortness of breath or wheezing) Qty: 12.9 0RF carvedilol 12.5 mg tablet See Rx Instructions .ROUTE .COMPLEX Qty: 180 3RF Dose Instruction: TAKE 1 TABLET TWICE A DAY Rx Instructions: TAKE 1 TABLET TWICE A DAY Primary Care Provider: Joe Guzman Referrals: Joe Guzman MD [Primary Care Provider] - 5-7 Days Print Language: Palestinian Disposition Disposition: Home, Self Care Discharge Date/Time: 04/27/24 00:23
--- NOTE | 2024-04-26 20:24 | CT_ITS ---
EXAM: CT ABDOMEN AND PELVIS WITH INTRAVENOUS CONTRAST CLINICAL INDICATION: Low abdominal pain since 04/19. TECHNIQUE: Helically acquired images were obtained of the abdomen and pelvis with intravenous contrast. This CT exam was performed using one or more of the following dose reduction techniques: automated exposure control, adjustment of the mA and/or kV according to patient size, and/or use of iterative reconstruction technique. CONTRAST: IV 100mL Isovue-370 COMPARISON: 01/14/2015. FINDINGS: LOWER THORAX: Coronary artery calcifications. Mild cardiomegaly without pericardial effusion. Scarring or atelectasis in the left basilar lung. ABDOMEN: LIVER: No significant abnormality. Homogeneous. No focal mass. GALLBLADDER AND BILE DUCTS: Status post cholecystectomy. No intra- or extrahepatic biliary ductal dilation. PANCREAS: No significant abnormality. No focal cystic or solid mass. SPLEEN: No significant abnormality. Normal size without focal cystic or solid mass. ADRENALS: No significant abnormality. No nodules. KIDNEYS AND URETERS: No significant abnormality. Normal renal size and position. No hydronephrosis. STOMACH AND BOWEL: Wall thickening throughout much of the sigmoid colon associated with pericolonic inflammation and colonic diverticulosis indicating acute diverticulitis. No stomach or bowel distention. PELVIS: APPENDIX: A normal appendix is identified in the right lower quadrant. BLADDER: No significant abnormality. REPRODUCTIVE: Status post hysterectomy. No mass. ABDOMEN and PELVIS: INTRAPERITONEAL SPACE: No significant abnormality. No evidence of abscess, significant free fluid, or free air. BONES/JOINTS: Degenerative changes in the spine. No suspicious lytic or blastic abnormality. SOFT TISSUES: No significant abnormality. No discrete abdominal or pelvic wall hernia. VASCULATURE: Atherosclerosis of the aorta and its branch vessels. Abdominal aorta is non-dilated. LYMPH NODES: No significant abnormality. No enlarged lymph nodes. CT/Abdomen/Pelvis W IV Cont ONLY IMPRESSION: 1. Findings consistent with uncomplicated acute diverticulitis of the sigmoid colon. 2. Coronary artery calcifications. Mild cardiomegaly without pericardial effusion. Electronically Signed: Albino Lopez DO at 20:59 EDT ,
[2024-04-26] MEDS: 0.9% Normal Saline (1000mL) 1,000 ML 999 ML IV (20:30)
[2024-04-26] MEDS: Ondansetron 4 MG/2 ML Vial IV (20:30)
[2024-04-26] MEDS: Dicyclomine 20 MG/2 ML Vial IM (20:30)
[2024-04-26 20:45] LABS: Bacteria 0 SEEN /hpf (None Seen); Mucous, Urine 0 SEEN /hpf (<or=2+); Red Blood Cells-Urine 0 SEEN /hpf (0-5); Squamous Epithelial Cells - UA 0 SEEN /hpf (5-10); White Blood Cells 0 SEEN /hpf (0-5)
[2024-04-26 20:59] LABS: Color, Urine Yellow (Yellow); Glucose, Dipstick Normal (Normal); Ketone-Dipstick Negative (Negative); Leukocyte Esterase-Dipstick Negative /ul (Negative); Nitrite-Dipstick Negative (Negative); Occult Blood-Urine Negative /ul (Negative); Protein-Dipstick Negative (Negative); Urine Bilirubin Dipstick Negative (Negative); Urine Clarity Clear (Clear); Urine Urobilinogen Normal (Normal)
[2024-04-26 21:00] VITALS: BP 152/88; PULSE 71; RESP 16; O2SAT 93
[2024-04-26 22:59] VITALS: BP 146/85; PULSE 92; RESP 18; O2SAT 94
[2024-04-26] MEDS: Morphine 4 MG/ML Syringe IV (23:43)
[2024-04-27] VITALS: BP 118/93; PULSE 74; RESP 18; O2SAT 95
[2024-04-27 00:13] VITALS: BP 118/93; PULSE 74; RESP 18; TEMP 36.6; O2SAT 95
== END 2024-04-27 00:23 | disposition home or self-care (01) ==
PROVIDERS: Emergency Provider Emergency Medicine; PCP Family Medicine; Visit Provider Emergency Medicine
DX: K57.92 Diverticulitis of intestine, part unspecified, without perforation or abscess without bleeding (principal); I10 Essential (primary) hypertension; E78.5 Hyperlipidemia, unspecified; Z79.899 Other long term (current) drug therapy; Z90.710 Acquired absence of both cervix and uterus; Z90.49 Acquired absence of other specified parts of digestive tract; Z96.651 Presence of right artificial knee joint
CPT/HCPCS: 74177; 80053; 81001; 85025; 96361; 96372; 96374; 96375; 99283; J7030; Q9967; A4216; J2405

== ENCOUNTER → 2024-05-18 | Outpatient (CLI) | payer MEDICARE, SELFPAY ==
--- NOTE | 2024-05-18 10:38 | BI_ITS ---
MAMMOGRAPHY - BILATERAL SCREENING REASON FOR EXAM: Female, 69 years old. Routine annual screening examination. PERTINENT HISTORY: Non-contributory. History of prior bilateral breast reduction surgery. TECHNIQUE: Digital bilateral breast tootie (3D mammographic acquisition) in the CC and MLO projections. 2-D mediolateral oblique (MLO) and craniocaudad (CC) views of both breasts were obtained. CAD: Full Field Digital Mammography with Computer Added Detection was performed. COMPARISON: Comparison is made with prior study dated March 09, 2022 and December 14, 2022. FINDINGS: Breast Composition: There are scattered areas of fibroglandular density. There are no dominant masses or suspicious calcifications. Stable small benign-appearing bilateral axillary lymph nodes. No other significant abnormalities are identified. There has been no significant change since the prior study. BI/SCRN MAMM (CAD)W/TOOTIE BILAT IMPRESSION: Stable bilateral screening mammogram. Yearly follow-up mammogram recommended. (A) ASSESSMENT CATEGORY: BIRADS Category 2: Benign. A letter regarding these results will be sent to the patient by the facility within 30 days. Approximately 10% of breast cancers are not detected by mammography. A normal mammogram should not delay biopsy of a clinically suspicious abnormality. [id number] Electronically Signed: Augustin Murray MD at 8:13 EDT ,
== END | disposition home or self-care (01) ==
LOC: OPBI 10:38
PROVIDERS: PCP Family Medicine; Referring Provider Family Medicine; Visit Provider Family Medicine
DX: Z12.31 Encounter for screening mammogram for malignant neoplasm of breast (principal)
CPT/HCPCS: 77063; 77067

== ENCOUNTER → 2024-07-09 | Outpatient (CLI) | payer MEDICARE, SELFPAY ==
[2024-07-09 15:25] LABS: Erythrocyte Sedimentation Rate 7 mm/hr (0-30)
[2024-07-09 15:27] LABS: Absolute Lymphocyte Count 1.86 X10^3/uL (0.83-4.51); Absolute Neutrophil Count 3.1 X10^3/uL (2.0-7.7); Basophil# 0.03 X10^3/uL; Basophil% 0.5 % (0-1); Eosinophil# 0.09 X10^3/uL; Eosinophils% 1.6 % (0-5); Hematocrit 39.5 % (37-47); Hemoglobin 12.9 g/dL (12.0-15.0); Lymphocyte # 1.86 X10^3/ul (0.83-4.51); Lymphocyte % 33.5 % (19-41); Mean Corp Hgb Conc 32.7 g/dL (32-36); Mean Corpuscular Hgb 27.8 pg (27.0-32.0); Mean Corpuscular Volume 85.1 fL (81-99); Mean Platelet Vol. 11.3 fl (6.2-12.0); NRBC Flagged by Analyzer 0 % (0-5); Neutrophil # 3.06 X10^3/uL (2.7-7.7); Platelet Count 261 K/mm3 (150-450); RBC Distribution Width CV 13.2 % (11.6-14.6); RBC Distribution Width SD 40.2 fl (35.1-43.9); Red Blood Count 4.64 M/mm3 (4.2-5.4); White Blood Count 5.6 K/mm3 (4.4-11.0)
[2024-07-09 16:11] LABS: Vitamin B12 > 2000 pg/mL (211-911); Vitamin D,25 Hydroxy 39.5 ng/mL
[2024-07-09 16:27] LABS: Anion Gap 8 (5-15); BUN 15 mg/dL (7-18); BUN/Creat Ratio 20.4 RATIO (10-20); Calcium,Total 9.3 mg/dL (8.5-10.1); Chloride 104 mmol/L (98-107); Creatinine, Serum 0.74 mg/dL (0.55-1.02); EST Glomerular Filtration Rate 83 mL/min (>60); Est Glom Filt Rate - Afr Amer 101 mL/min (>60); Ferritin 12 ng/mL (8-252); Glucose 93 mg/dL (74-106); Iron 100 ug/dL (50-170); Potassium 3.4 mmol/L (3.5-5.1); Sodium Level 139 mmol/L (136-145)
[2024-07-13 04:08] LABS: Zinc, Plasma or Serum 66 ug/dL (44-115)
== END | disposition home or self-care (01) ==
LOC: MFPLAB 12:14
PROVIDERS: PCP Family Medicine; Visit Provider Family Medicine
DX: L65.9 Nonscarring hair loss, unspecified (principal)
CPT/HCPCS: 36415; 80048; 82306; 82607; 82728; 83540; 84443; 84630; 85025; 85652

== ENCOUNTER → 2024-09-12 | Outpatient (CLI) | payer MEDICARE, SELFPAY | END | disposition home or self-care (01) | PROVIDERS: PCP Family Medicine; Referring Provider Dermatology; Visit Provider Dermatology | DX: Z79.899 Other long term (current) drug therapy (principal) | CPT/HCPCS: 36415; 84132 ==

== ENCOUNTER → 2024-11-13 | Outpatient (CLI) | payer MEDICARE, SELFPAY ==
--- NOTE | 2024-11-13 15:50 | RAD_ITS ---
PROCEDURE: Abdomen radiographs REASON FOR EXAM: LLQ PAIN TECHNIQUE: Three views of the abdomen and pelvis COMPARISON: 04/26/2024 FINDINGS: Nonobstructive bowel gas pattern. Mild fecal retention. No suspicious intra- abdominal calcifications or acute osseous abnormality. Mild cardiomegaly. Lung bases are clear. RAD/Abd Inc Decub and/or Erect IMPRESSION: Nonobstructive bowel gas pattern. Reading Location: [facility]
[2024-11-13 17:51] LABS: Absolute Neutrophil Count 6.4 X10^3/uL (2.0-7.7); Basophil# 0.04 X10^3/uL; Basophil% 0.4 % (0-1); Eosinophil# 0.13 X10^3/uL; Eosinophils% 1.4 % (0-5); Hematocrit 37.6 % (37-47); Hemoglobin 12.6 g/dL (12.0-15.0); Lymphocyte % 20.6 % (19-41); Mean Corp Hgb Conc 33.5 g/dL (32-36); Mean Corpuscular Volume 89.5 fL (81-99); Mean Platelet Vol. 10.8 fl (6.2-12.0); Monocyte# 0.71 X10^3/uL; Monocyte% 7.7 % (0-10); NRBC Flagged by Analyzer 0 % (0-5); Neutrophil # 6.42 X10^3/uL (2.7-7.7); Neutrophil % 69.6 % (47-70); Platelet Count 235 K/mm3 (150-450); RBC Distribution Width CV 13.2 % (11.6-14.6); RBC Distribution Width SD 43.5 fl (35.1-43.9); White Blood Count 9.2 K/mm3 (4.4-11.0)
[2024-11-13 18:05] LABS: Erythrocyte Sedimentation Rate 8 mm/hr (0-30)
[2024-11-13 20:23] LABS: ALB/GLOB Ratio 1.6 RATIO (0.9-2.4); AST(SGOT) 35 U/L (<=31); Alanine Aminotransfer ALT/SGPT 41 U/L (<=34); Albumin, Serum 4.4 g/dL (3.4-4.8); Alkaline Phosphatase 87 U/L (35-104); Anion Gap 13 (5-15); BUN 19 mg/dL (4-19); BUN/Creat Ratio 27.3 RATIO (10-20); Calcium,Total 9.7 mg/dL (7.6-11.0); Carbon Dioxide 23.8 mmol/L (21.0-32.0); Chloride 104 mmol/L (98-108); Creatinine, Serum 0.69 mg/dL (0.70-1.20); EST Glomerular Filtration Rate 94 (>60); Globulin 2.8 g/dL (2.2-4.2); Glucose 143 mg/dL (70-99); Potassium 3.3 mmol/L (3.3-5.1); Protein, Total 7.1 g/dL (5.9-8.4); Sodium Level 141 mmol/L (133-145); Total Bilirubin 0.77 mg/dL (0.00-1.30)
== END | disposition home or self-care (01) ==
LOC: MTLAB 15:50
PROVIDERS: PCP Family Medicine; Referring Provider Family Medicine; Visit Provider Family Medicine
DX: K57.92 Diverticulitis of intestine, part unspecified, without perforation or abscess without bleeding (principal)
CPT/HCPCS: 36415; 74019; 80053; 85025; 85652

== ENCOUNTER → 2025-01-16 | Outpatient (CLI) | payer MEDICARE, SELFPAY ==
--- NOTE | 2025-01-16 16:00 | CT_ITS ---
PROCEDURE: ABDOMEN/PELVIS WITH CONTRAST 01/16/2025 REASON FOR EXAM: ACUTE DIVERTICULITIS: WITH IV AND ORAL DYE TECHNIQUE: Abdomen and pelvis CT with intravenous contrast. Coronal and Sagittal reconstruction series were provided. PATIENT PREPARATION: Per protocol ORAL CONTRAST TYPE: Dilute Gastrografin. CONTRAST: Isovue-300 VOLUME: 100 mL One or more dose reduction techniques were used (e.g., Automated exposure control, adjustment of the mA and/or kV according to patient size, use of iterative reconstruction technique. RADIATION DOSE SUMMARY: CTDlvol: 14.5 mGy DLP: 686.75 mGycm COMPARISON: April 26, 2024. FINDINGS: Lung bases: Mild dependent atelectasis. Coronary artery calcification. Liver: Diffuse fatty infiltration. Gallbladder: Surgically absent. Spleen: Normal size. Pancreas: Normal size without evidence of mass surrounding inflammation or ductal dilation. Adrenals: Unremarkable Kidneys: Normal renal sizes. No hydronephrosis. Bladder: Unremarkable Reproductive Organs: Prior hysterectomy. Adnexal regions are unremarkable. Bowel: Colonic diverticulosis without diverticulitis. Appendix: Not visualized. Lymph nodes: Unremarkable. Vasculature: Mild diffuse atherosclerotic calcifications are noted. Peritoneum / Retroperitoneum: Unremarkable Bones: Degenerative changes of the spine. CT/Abdomen/Pelvis WITH Contrast IMPRESSION: Fatty infiltration of the liver. Evidence of diverticulitis at this time. OVERALL FINAL ASSESSMENT: . LI-RADS is not meant to be used in patients <18 years or patients with cirrhosi s due to congenital hepatic fibrosis or due to vascular disorders, because these patients have a lower chance of developing HC C. Reading Location: [facility]
== END | disposition home or self-care (01) ==
LOC: CT 15:55
PROVIDERS: PCP Family Medicine; Referring Provider Family Medicine; Visit Provider Family Medicine
DX: K57.92 Diverticulitis of intestine, part unspecified, without perforation or abscess without bleeding (principal)
CPT/HCPCS: 74177; Q9967

== ENCOUNTER → 2025-03-07 | Outpatient (CLI) | payer MEDICARE, SELFPAY ==
[2025-03-07 13:42] LABS: Anion Gap 11 (5-15); BUN 13 mg/dL (4-19); BUN/Creat Ratio 22.3 RATIO (10-20); Calcium,Total 9.2 mg/dL (7.6-11.0); Carbon Dioxide 25.9 mmol/L (21.0-32.0); Chloride 107 mmol/L (98-108); Glucose 103 mg/dL (70-99); Potassium 3.0 mmol/L (3.3-5.1)
== END | disposition home or self-care (01) ==
LOC: LAB 12:10
PROVIDERS: PCP Family Medicine; Referring Provider Orthopaedic Surgery; Visit Provider Orthopaedic Surgery
DX: I10 Essential (primary) hypertension (principal)
CPT/HCPCS: 36415; 80048

== ENCOUNTER 2025-04-19 10:00 | Outpatient (RCR) | payer MEDICARE, SELFPAY ==
--- NOTE | 2025-03-20 09:31 | HP.PTEVAL_ITS ---
Patient's Visit Information Visit Information Visit Information: ZAIN LOVE is a 69 year old F referred to Physical Therapy by BHARTI BARNARD with a diagnosis of R shoulder debridement and decompression 03/18/25. Date of Evaluation: 03/20/25 Physical Therapist: Pako Hung, PT, ATC Visit Plan Frequency: 1x/Week Duration: 2-4 Weeks Plan: Issue and instruct pt on HEP of wand ex's next session. Follow up with pt in 4 weeks to issue strengthening ex's consisting of rot cuff strengthening, scap stab ex's, UBE, and HEP Subjective Subjective: DOS: 03/18/25. Pt reports she had surgery to clean up tears in her R shoulder on the the biceps and rotator cuff tendons. pt also had a decompression performed in the sub acromial area. Pt reports her pain is not bad today. Pt notes she has not taken pain meds since last night. Pt denies any tingling or numbness in R UE at this time. Pt is R hand dominant. Pt is retired at this time. 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 pt is still having sleep difficulty at this time secondary to pain. She has to sleep in a recliner at this time. No PMHx of R shoulder complications prior to this episode. Pt has been issued HEP consisting of R elbow and hand ex's at this time. Pt reports she is very limited with getting dressed at this time. Pt also is limited with house chores at this time. 8/10 at rest, 10/10 at worst Pain R shoulder: Pain Intensity (Out of 10): 8 Pain Intensity Range: 10 Objective Objective: Neuro: B UE sensation is WNL to light touch. Observation: Incisions still bandaged. No signs of infection at this time. AROM: L shoulder flex= 135, abd= 135, ER= 30, IR= WNL; R shoulder flex= 30, abd= 15, ER= 0, IR= MMT: L shoulder flex= 8, abd= 10, ER= 13, IR= 15 #F; R shoulder not tested Balance/Special Test Scores Quick DASH Score: 70.4525 Goals Goal 1:: Decrease R shoulder pain x 50% to aid with sleep Goal Time Frame: 4-6 Weeks Goal 2:: Increase R shoulder flex and abd ROM to 100 degrees to aid with overhead lifting Goal Time Frame: 4-6 Weeks Goal 3:: Increase R shoulder strength to equal 90% of L shoulder strength to aid with IADL's Goal Time Frame: 4-6 Weeks Goal 4:: I with HEP Goal Time Frame: 4-6 Weeks Rehabilitation Potential Physical Therapy Diagnosis: Pt has R shoulder pain, weakness, and limited ROM secondary to R shoulder arthroscopy Rehabilitation Potential: Good Anticipated Interventions Patient/Client Instruction: Educate patient on: Condition and Plan of Care For the Purpose of:: To improve self management Therapeutic Exercise to Include: Strength training, Passive ROM, Active ROM and Scapular Strength/Stabilization For the Purpose of:: To decrease pain, To increase ROM and To improve muscle performance and motor function Cryotherapy (ice pack, ice massage): Yes For the Purpose of:: To decrease pain Text: Thank you for the opportunity to evaluate your patient. For Medicare and Medicare HMO plans, please review the plan of care and approve it. It will need to be FAXED BACK to us at [phone] for Medicare purposes. For Medicare only, by signing this I certify the plan of care. Please let me know if there are questions or concerns regarding this plan of care. Physician Signature: Date:
--- NOTE | 2025-04-19 10:34 | HP.PTREVAL ---
Re-Evaluation Intro: BHARTI BARNARD, It has been my pleasure to treat ZAIN LOVE over the last 8 visits for R shoulder debridement and decompression 03/18/25. Please see the progress note below for an update on the physical therapy plan of care! Subjective Subjective: Dr. aleja Cortez. Pt is feeling much better today Objective Objective/Function: R shoulder pain 11/12 R shoulder ROM: flex= 100, abd= 55, ER= 40, IR= moderately limited R shoulder MMT: flex= 4, abd= 13, ER= 10, IR= 9 #F Pt is showing excellent progress in all aspects at this time Plan Plan Plan: Follow up after doctor visit in 2 weeks Balance/Gait/Functional tests Balance/Special Test Scores Quick DASH Score: 70.4525 Goals Goals Goal 1:: Decrease R shoulder pain x 50% to aid with sleep Goal Time Frame: 4-6 Weeks Goal 2:: Increase R shoulder flex and abd ROM to 100 degrees to aid with overhead lifting Goal Time Frame: 4-6 Weeks Goal 3:: Increase R shoulder strength to equal 90% of L shoulder strength to aid with IADL's Goal Time Frame: 4-6 Weeks Goal 4:: I with HEP Goal Time Frame: 4-6 Weeks Anticipated Interventions Anticipated Interventions Patient/Client Instruction: Educate patient on: Condition and Plan of Care For the Purpose of:: To improve self management Therapeutic Exercise to Include: Strength training, Passive ROM, Active ROM and Scapular Strength/Stabilization For the Purpose of:: To decrease pain, To increase ROM and To improve muscle performance and motor function Cryotherapy (ice pack, ice massage): Yes For the Purpose of:: To decrease pain Re-Evaluation Ending Re-evaluation ending: Please do not hesitate to contact me at [phone] by phone or if you have questions or concerns regarding this new plan of care! Sincerely, Pako Hung, PT, ATC
--- NOTE | 2025-06-11 11:48 | HP.PT.NRP ---
Patient Information Patient Information: ZAIN LOVE was seen in my office for initial evaluation on 03/20/25. The following Plan of Care was established for this patient: POC Established Initial Frequency: 1x/Week Initial Duration: 2-4 Weeks Anticipated Interventions Patient/Client Instruction: Educate patient on: Condition and Plan of Care For the Purpose of:: To improve self management Therapeutic Exercise to Include: Strength training, Passive ROM, Active ROM and Scapular Strength/Stabilization For the Purpose of:: To decrease pain, To increase ROM and To improve muscle performance and motor function Cryotherapy (ice pack, ice massage): Yes For the Purpose of:: To decrease pain Last Seen Last Seen: This patient was last seen in our office . Pertinent comments regarding their Physical therapy will appear below: Pt has not returned for greater than 30 days and is discontinued at this time. At this point I will be discontinuing this patient from physical therapy. I would be happy to see this patient again in the future if found appropriate by the physician. Thank you! Pako Hung, PT, ATC Balance/Gait/Functional tests Balance/Special Test Scores Quick DASH Score: 70.4565
== END 2025-04-19 19:00 | disposition home or self-care (01) ==
LOC: PT 10:00
PROVIDERS: PCP Family Medicine
DX: S46.011D Strain of muscle(s) and tendon(s) of the rotator cuff of right shoulder, subsequent encounter (principal); S46.111D Strain of muscle, fascia and tendon of long head of biceps, right arm, subsequent encounter; S43.431D Superior glenoid labrum lesion of right shoulder, subsequent encounter; M75.41 Impingement syndrome of right shoulder; M19.011 Primary osteoarthritis, right shoulder
CPT/HCPCS: 97110; 97140; 97161; 97530

== ENCOUNTER → 2025-05-27 | Outpatient (CLI) | payer MEDICARE, SELFPAY ==
[2025-05-27 18:07] LABS: Hematocrit 35.2 % (37-47); Hemoglobin 11.8 g/dL (12.0-15.0); Immature Granulocytes Count 0.050 X10^3/uL (0.0-0.0); Mean Corp Hgb Conc 33.5 g/dL (32-36); Mean Corpuscular Volume 86.9 fL (81-99); Mean Platelet Vol. 11.1 fl (6.2-12.0); NRBC Flagged by Analyzer 0 % (0-5); Platelet Count 224 K/mm3 (150-450); RBC Distribution Width CV 12.0 % (11.6-14.6); RBC Distribution Width SD 38.5 fl (35.1-43.9); Red Blood Count 4.05 M/mm3 (4.2-5.4); White Blood Count 11.8 K/mm3 (4.4-11.0)
[2025-05-27 18:52] LABS: AST(SGOT) 43 U/L (<=31); Alanine Aminotransfer ALT/SGPT 43 U/L (<=34); Albumin, Serum 4.1 g/dL (3.4-4.8); Alkaline Phosphatase 130 U/L (35-104); Anion Gap 13 (5-15); BUN 12 mg/dL (4-19); BUN/Creat Ratio 24.3 RATIO (10-20); Calcium,Total 9.3 mg/dL (7.6-11.0); Carbon Dioxide 24.1 mmol/L (21.0-32.0); Chloride 103 mmol/L (98-108); Globulin 2.4 g/dL (2.2-4.2); Glucose 96 mg/dL (70-99); Potassium 3.4 mmol/L (3.3-5.1)
== END | disposition home or self-care (01) ==
LOC: MFPLAB 15:48
PROVIDERS: PCP Family Medicine
DX: R10.9 Unspecified abdominal pain (principal)
CPT/HCPCS: 36415; 80053; 85025

== ENCOUNTER 2025-07-03 21:40 | Emergency (ER) | payer MEDICARE, SELFPAY ==
[2025-07-03 21:41] VITALS: BP 168/100; PULSE 79; RESP 20; TEMP 36.2; O2SAT 100
--- NOTE | 2025-07-03 21:48 | CT_ITS ---
PROCEDURE: CT/Abdomen/Pelvis W IV Cont ONLY
--- NOTE | 2025-07-03 21:53 | ED.VIS.GI ---
HPI HPI - GI History of Present Illness Chief Complaint: Abd Pain Informant: patient and spouse/S.O. Abdominal Pain/Flank Pain Onset: Days Timing: Continuous Quality: Sharp Location: LLQ Current Severity: Moderate Maximum Severity: Moderate Worsened by: Nothing Relieved by: Nothing Nausea/Vomiting/Emesis GI Symptom: Positive for Nausea, Vomiting and - (Dry heaves.) Onset: Today Severity: Mild Diarrhea/Melena/Hematochezia GI Symptom: Positive for - (Mild constipation); Negative for Diarrhea, Melena or Hematochezia Associated Symptoms Associated Symptoms: Negative for Dysuria, Frequency, Hematuria or Urgency Narrative Narrative: 70-year-old female complaining of lower quadrant abdominal pain. History of prior diverticulitis. History of prior cholecystectomy, cholecystectomy and irritable bowel. Denies any dysuria. No fever. Has had some mild recent constipation. Said pain for days worsening tonight. Associated dry heaves. Nothing particular makes the pain better or worse. Prior similar symptoms: Yes Recent Illness/Hospitalization: No PFSH [facility] Medical History Premature ventricular contractions Non-ischemic cardiomyopathy Essential (primary) hypertension Hyperlipidemia Home Medications ?Medication ?Instructions ?Recorded ?Last Taken ?Type omega-3 fatty acids-fish oil 435 1 ea PO DAILY 08/23/13 09/06/13 08:00 History mg-880 mg capsule pravastatin 20 mg tablet 20 mg PO QHS 04/28/17 Unknown History biotin 5,000 mcg sublingual tablet 5,000 mcg sublingual DAILY 05/22/19 Unknown History pantoprazole 40 mg tablet,delayed 40 mg PO DAILY 07/04/20 Unknown History release calcium 600 mg (as 1 cap PO DAILY 12/20/20 Unknown History carbonate)-vitamin D3 12.5 mcg (500 unit) capsule (Calcium with Vit D3) sertraline 50 mg tablet 50 mg PO DAILY #90 tabs 07/12/23 Unknown History ipratropium bromide 17 2 puff inhalation Q8H PRN 10/12/23 Unknown Rx mcg/actuation HFA aerosol inhaler shortness of breath or wheezing #12.9 grams carvedilol 12.5 mg tablet 12.5 mg PO BID #180 TABLETS 05/10/25 Unknown Rx losartan 100 mg tablet 100 mg PO DAILY #90 tabs 05/10/25 Unknown Rx ciprofloxacin HCl 500 mg tablet 500 mg PO BID 14 days #28 tabs 07/03/25 Unknown Rx (Cipro) hydrocodone 5 mg-acetaminophen 300 1 tab PO Q6H PRN pain 5 days #14 07/03/25 Unknown Rx mg tablet tabs metronidazole 500 mg tablet 500 mg PO TID 14 days #42 tabs 07/03/25 Unknown Rx Allergy/AdvReac Type Severity Reaction Status Date / Time lisinopril AdvReac cough Verified 07/03/25 21:41 metoclopramide HCl (From AdvReac Other Verified 07/03/25 21:41 Reglan) Family History Father Heart disease Grandmother Heart disease Brother Myocardial infarction Uncle Myocardial infarction Surgical History History of bilateral breast reduction surgery History of hysterectomy History of common bile duct surgery History of cholecystectomy History of left heart catheterization (06/27/06) History of right knee joint replacement H/O arthroscopy of right knee Social History household members: spouse housing: house Smoking Status: Never smoker alcohol intake: current alcohol intake frequency: a few times a month ROS ROS ED ROS Narrative Abdominal pain. Dry heaves. Mild constipation. No dysuria. No fever. Constitutional Constitutional ED: Denies chills or fever(s) ENT ENT ED: Denies ear pain Cardiovascular Cardiovascular: Denies chest pain Respiratory/Chest Respiratory/Chest: Denies cough or dyspnea Gastrointestinal Gastrointestinal: Reports abdominal pain, constipation, nausea and vomiting; Denies diarrhea or melena Genitourinary Genitourinary ED: Denies dysuria or hematuria Musculoskeletal Musculoskeletal: Denies arthralgias Integumentary Denies abscess Neurologic Neurologic: Denies headache(s) Psychiatric Psychiatric: Denies anxiety or depression Endocrine Endocrinology: Denies polydipsia Hematologic/Lymphatic Hematologic/Lymphatic: Denies easy bleeding, easy bruising or lymphadenopathy Allergic/Immunologic Allergic/Immunologic ED: Denies mouth swelling, tongue swelling or urticaria EXAM Physical Exam Narrative Exam Narrative: 70-year-old female walking back from the bathroom. at bedside. Vital signs are stable afebrile. Does not look septic toxic. Complaining of pain. H EENT exam pupils round react light. Moist mutes membranes. Neck nontender no lymphadenopathy. Lungs clear to auscultation bilaterally. Heart regular rhythm no murmur. Rate 80. Abdomen soft nondistended normal bowel sounds diffusely tender more so in the lower quadrants. No hernia or mass. No pulsatile mass. No obstruction. No distention. Most tender in the left lower quadrant. No signs of trauma. Back nontender. Moving all 4 extremities. Nontender no edema. Neurologically patient is awake alert. Answering questions following commands. Const Vital Signs: 07/03/25 21:41 07/03/25 22:40 07/03/25 23:00 Temperature 97.1 F L Temperature Source Temporal Pulse Rate 79 79 74 Respiratory Rate 20 H 18 18 Blood Pressure 168/100 H 122/73 H 135/72 H Blood Pressure Mean 122 89 93 Pulse Ox 100 93 93 Oxygen Delivery Method Room Air Room Air MDM MDM MDM Narrative Medical decision making narrative: 70-year-old female prior diverticulitis with abdominal pain worse on the left lower quadrant. Differential would include diverticulitis, appendicitis, UTI, irritable bowel, constipation versus other etiologies. CAT scan labs are being obtained. She will be treated with IV morphine and Zofran. Repeat exam around 10:40 PM. Patient's pain is much better with morphine. She be given a second dose of 4 mg. Abdomen remains tender in the lower quadrants but no peritoneal signs. We have gone over her initial test waiting on the CAT scan official read. CAT scan showed diverticulitis. No perforation. No free air. No abscess. Patient is feeling much better. Her and her are card with her being discharged to home. Should be written for Cipro twice daily for 2 weeks and Flagyl 3 times daily for 2 weeks. Limited Vicodin for pain. Follow-up with her primary care physician to ensure she is improving. Return if she is feeling worse. History & Record Review Discussion w/independent historian: Patient and Family Additional record(s) reviewed:: Prior outpatient record and Prior labs Lab Data Attestation: I reviewed the patient's lab results. Lab results narrative: CBC shows a white count 18.6. H&H 14 and 41. Platelets 325. Electrolytes show gap 11. BUN and creatinine 18 and 0.6. Glucose 96. Liver enzymes unremarkable. Lipase normal at 67. Urinalysis shows no nitrates. No white or red cells. 2+ bacteria. Labs: Laboratory Results - last 24 hr 07/03/25 21:55 WBC 18.6 H RBC 4.90 Hgb 14.2 Hct 41.9 MCV 85.5 MCH 29.0 MCHC 33.9 RDW Std Deviation 38.3 RDW Coeff of Stiven 12.3 Plt Count 325 MPV 10.1 Immature Gran % (Auto) 0.500 Neut % (Auto) 76.6 H Lymph % (Auto) 15.5 L [place] % (Auto) 6.7 Eos % (Auto) 0.6 Baso % (Auto) 0.1 Absolute Neuts (auto) 14.3 H Absolute Lymphs (auto) 2.89 Nucleated RBC % 0 Sodium 140 Potassium 3.9 Chloride 103 Carbon Dioxide 25.9 Anion Gap 11 BUN 18 Creatinine 0.61 L Estim Creat Clear Calc 61.26 Est GFR (MDRD) Non-Af 96 BUN/Creatinine Ratio 28.9 H Glucose 96 Calcium 9.5 Total Bilirubin 0.46 AST 14 ALT 13 Alkaline Phosphatase 93 Total Protein 6.7 Albumin 4.0 Globulin 2.7 Albumin/Globulin Ratio 1.5 Lipase 67 Urine Color Yellow Urine Clarity Clear Urine pH 7.0 Ur Specific [place] 1.015 Urine Protein 15 H Urine Glucose (UA) Normal Urine Ketones Negative Urine Occult Blood Negative Urine Nitrite Negative Urine Bilirubin Negative Urine Urobilinogen Normal Ur Leukocyte Esterase Negative Urine RBC 0 SEEN Urine WBC 0-5 SEEN Ur Squamous Epith Cells 0-5 SEEN Ur Transition Epith Cell 0-5 SEEN Amorphous Sediment 2+ Urine Bacteria 2+ Urine Mucus 0 SEEN Radiography Diagnostic Testing: Clinical Impression(s) from Imaging Studies Abdomen/Pelvis CT 07/03/25 21:48 IMPRESSION: Acute uncomplicated distal sigmoid diverticulitis. Ancillary findings noted above. Reading Location: [facility] Discharge Plan Triage Chief Complaint: Abd Pain ED Provider: Selvin Brownlee Dx/Rx/DC Orders Clinical Impression: Abdominal pain, Leukocytosis, Acute diverticulitis Instructions: ED Diverticulitis Prescriptions: New metronidazole 500 mg tablet 500 mg PO TID 14 Days Qty: 42 0RF ciprofloxacin HCl [Cipro] 500 mg tablet 500 mg PO BID 14 Days Qty: 28 0RF hydrocodone-acetaminophen 5-300 mg tablet 1 tab PO Q6H PRN (Reason: pain) 5 Days Qty: 14 0RF No Action biotin 5,000 mcg tablet, sublingual 5,000 mcg SUBLINGUAL DAILY sertraline 50 mg tablet 50 mg PO DAILY Qty: 90 pantoprazole 40 mg tablet,delayed release (DR/EC) 40 mg PO DAILY Patient Comments: TAKE 1 TABLET BY MOUTH EVERY DAY calcium carbonate-vitamin D3 [Calcium 600 with Vitamin D3] 600 mg(1,500mg) -500 unit capsule 1 cap PO DAILY omega-3 fatty acids-fish oil 1 EACH capsule 1 ea PO DAILY Patient Comments: SUPPLEMENT pravastatin 20 MG tablet 20 mg PO QHS ipratropium bromide 17 mcg/actuation HFA aerosol inhaler 2 puff inhalation Q8H PRN (Reason: shortness of breath or wheezing) Qty: 12.9 0RF losartan 100 mg tablet 100 mg PO DAILY Qty: 90 3RF carvedilol 12.5 mg tablet 12.5 mg PO BID Qty: 180 3RF Primary Care Provider: Joe Guzman Referrals: Joe Guzman MD [Primary Care Provider, Family Practice] - 3-5 Days Activity Restrictions/Additional Instructions: Cipro 1 pill twice a day for 2 weeks. Flagyl 1 pill 3 times a day for 2 weeks. Vicodin for more severe pain. Otherwise Tylenol. Follow-up with your doctor in the next several days to ensure you are improving. If you are feeling worse, increasing pain, fever return to the emergency department. Plenty of fluids and fiber to prevent constipation from the pain medication. Print Language: Bahraini Disposition Disposition: Home, Self Care
[2025-07-03 22:01] VITALS: BMI 23.3
[2025-07-03 22:05] LABS: Mucous, Urine 0 SEEN /hpf (<or=2+); Red Blood Cells-Urine 0 SEEN /hpf (0-5)
[2025-07-03 22:07] LABS: Hematocrit 41.9 % (37-47); Hemoglobin 14.2 g/dL (12.0-15.0); Immature Granulocytes Count 0.100 X10^3/uL (0.0-0.0); Mean Corp Hgb Conc 33.9 g/dL (32-36); Mean Corpuscular Volume 85.5 fL (81-99); Mean Platelet Vol. 10.1 fl (6.2-12.0); NRBC Flagged by Analyzer 0 % (0-5); Platelet Count 325 K/mm3 (150-450); RBC Distribution Width CV 12.3 % (11.6-14.6); RBC Distribution Width SD 38.3 fl (35.1-43.9); Red Blood Count 4.90 M/mm3 (4.2-5.4); White Blood Count 18.6 K/mm3 (4.4-11.0)
[2025-07-03 22:08] LABS: Color, Urine Yellow (Yellow); Glucose, Dipstick Normal (Normal); Ketone-Dipstick Negative (Negative); Leukocyte Esterase-Dipstick Negative /ul (Negative); Nitrite-Dipstick Negative (Negative); Occult Blood-Urine Negative /ul (Negative); Protein-Dipstick 15 mg/dl (Negative); Specific Gravity, Urine 1.015 (1.002-1.030); Urine Bilirubin Dipstick Negative (Negative)
[2025-07-03 22:24] LABS: AST(SGOT) 14 U/L (<=31); Alanine Aminotransfer ALT/SGPT 13 U/L (<=34); Albumin, Serum 4.0 g/dL (3.4-4.8); Alkaline Phosphatase 93 U/L (35-104); Anion Gap 11 (5-15); BUN 18 mg/dL (4-19); BUN/Creat Ratio 28.9 RATIO (10-20); Calcium,Total 9.5 mg/dL (7.6-11.0); Carbon Dioxide 25.9 mmol/L (21.0-32.0); Chloride 103 mmol/L (98-108); Estimated Creatinine Clearance 61.26 ml/min (50-250); Globulin 2.7 g/dL (2.2-4.2); Glucose 96 mg/dL (70-99); Lipase 67 U/L (13-75); Potassium 3.9 mmol/L (3.3-5.1)
[2025-07-03 22:40] VITALS: BP 122/73; PULSE 79; RESP 18; O2SAT 93
[2025-07-03 22:40] LABS: Squamous Epithelial Cells - UA 0-5 SEEN /hpf (5-10); Transitional Epithelial - Ur 0-5 SEEN /hpf (0-5)
[2025-07-03 23:00] VITALS: BP 135/72; PULSE 74; RESP 18; O2SAT 93
[2025-07-03 23:57] VITALS: BP 135/72; PULSE 74; RESP 18; TEMP 36.8; O2SAT 93
== END 2025-07-03 23:58 | disposition home or self-care (01) ==
PROVIDERS: Emergency Provider Emergency Medicine; PCP Family Medicine; Visit Provider Emergency Medicine
DX: K57.32 Diverticulitis of large intestine without perforation or abscess without bleeding (principal); Z90.710 Acquired absence of both cervix and uterus; D72.829 Elevated white blood cell count, unspecified; Z90.49 Acquired absence of other specified parts of digestive tract; I10 Essential (primary) hypertension; E78.5 Hyperlipidemia, unspecified; Z79.899 Other long term (current) drug therapy; Z96.651 Presence of right artificial knee joint; R10.32 Left lower quadrant pain
CPT/HCPCS: 74177; 80053; 81001; 83690; 85025; 96374; 96375; 99284; Q9967; A4216; J2405

== ENCOUNTER → 2025-08-08 | Outpatient (CLI) | payer MEDICARE, SELFPAY ==
--- NOTE | 2025-08-08 12:55 | BI_ITS ---
EXAM: SCRN MAMM (CAD)W/TOOTIE BILAT DATE: 08/08/2025 CLINICAL HISTORY: F, Age 70 y/o , SCREENING TECHNIQUE: Procedure Code: [id number] Modality: MG Procedure: SCRN MAMM (CAD)W/TOOTIE BILAT COMPARISON: Prior exam(s) were compared FINDINGS: TISSUE DENSITY: There are scattered areas of fibroglandular density. Bilateral Breast Mammographic Findings: No significant masses, calcifications or other abnormalities are identified. BI/SCRN MAMM (CAD)W/TOOTIE BILAT IMPRESSION: No mammographic evidence of malignancy. OVERALL FINAL ASSESSMENT BI-RADS 1: NEGATIVE. RECOMMENDATION: Routine annual follow-up in 1 Year Additional Recommendation none A letter with findings and recommendations will be mailed to the patient. Reading Location: [id number]
--- NOTE | 2025-08-08 12:55 | BD_ITS ---
PROCEDURE: DEXA BONE DENSITY STUDY 08/08/2025 REASON FOR EXAM: F, age 70 y/o . Postmenopausal. TECHNIQUE: Procedure Code: BDDBD Modality: DX Procedure: DEXA BONE DENSITY STUDY COMPARISON: March 24, 2023. FINDINGS: BMD and T-SCORES Lumbar spine: 0.814 g/cm2, T-score -2.1 Levels: L1 through L4 Change from prior: Loss of 2.5%. Left femoral neck: 0.59 g/cm2, T-score -2.3 Femoral neck comparison data not recommended for monitoring change. Left total hip: 0.708 g/cm2, T-score -1.9 Change from prior: Loss of 2.9%. Right femoral neck: 0.634 g/cm2, T-score -1.9 Femoral neck comparison data not recommended for monitoring change. Right total hip: 0.711 g/cm2, T-score -1.9 Change from prior: Loss of 0.1%. The World Health Organization has defined the following categories based on bone density: Normal bone density: T-score equal to or greater than -1.0 Osteopenia: T-score between -1.0 and -2.5 Osteoporosis: T-score equal to or less than -2.5 FRAX (or Comparable) Fracture Risk Assessment: 10 Year Probability of Fracture: Major Osteoporotic Fracture: 20% Hip Fracture: 4.4% (Note: FRAX is not to be reported in setting of normal range bone density, osteoporosis on DEXA, known history of osteoporosis, prior osteoporotic hip or vertebral fracture, or for any patient undergoing pharmacological treatment for bone loss.) The National Osteoporosis Foundation (NOF) recommends pharmacological treatment for patients with a FRAX 10-year risk of 3% or higher for a hip fracture, or 20% or higher for a major osteoporotic fracture, to prevent osteoporosis and reduce fracture risk. The patient does meet the pharmacological treatment recommendations for prevention of osteoporosis. BD/Dexa Bone Density Study IMPRESSION: OSTEOPENIA. Recommend follow-up as clinically warranted. Reading Location: [place] [id number]
== END | disposition home or self-care (01) ==
LOC: OPBD 12:52
PROVIDERS: PCP Family Medicine; Referring Provider Family Medicine; Visit Provider Family Medicine
DX: Z12.31 Encounter for screening mammogram for malignant neoplasm of breast (principal); M85.88 Other specified disorders of bone density and structure, other site
CPT/HCPCS: 77063; 77067; 77080